=== PATIENT | female | born 1950 | race Caucasian/White ===

== ENCOUNTER → 2018-04-18 14:07 | Outpatient (REF) | payer MEDICARE, OTHER, SELFPAY ==
[2018-04-18 19:19] LABS: HCT 41.9 % (36.0-46.0); HGB 14.7 g/dL (12.0-15.5); Mean Corp. HGB Concentration 35.1 g/dL (32.0-36.0); Mean Corpuscular Hemoglobin 30.9 pg (27.0-33.0); Platelet Count 164 x1000/uL (130-400); RBC 4.76 m/cumm (4.00-5.20); RBC Distribution Width 12.4 % (11.7-14.6); White Blood Cell Count 6.94 k/cumm (4.4-10.8)
[2018-04-18 19:49] LABS: ALT 32 U/L (12-78); AST 25 U/L (15-37); Albumin 3.8 g/dL (3.4-5.0); Alkaline Phosphatase 118 U/L (46-116); Anion Gap 9.9 mmol/L (3-11); BUN 11 mg/dL (7-18); Bilirubin, Total 0.7 mg/dL (0.2-1.0); CO2 26.1 mmol/L (21.0-32.0); CREATININE 0.87 mg/dL (0.55-1.02); Calcium 9.3 mg/dL (8.5-10.1); Chloride 101 mmol/L (98-107); Folate 16.2 ng/mL (8.6-20.0); Glucose 149 mg/dL (70-100); Potassium 4.6 mmol/L (3.5-5.1); Sodium 137 mmol/L (136-145); Total Protein 7.4 g/dL (6.4-8.2); Vitamin B12 > 1000 pg/mL (193-986)
== END ==
LOC: NCHCN 14:07
PROVIDERS: PCP Family Medicine; Visit Provider Family Medicine
DX: R53.83 Other fatigue (principal)
CPT/HCPCS: 80053; 85027; 82607; 82746

== ENCOUNTER 2018-04-21 01:43 | Outpatient (CLI) | payer MEDICARE, OTHER, SELFPAY ==
--- NOTE | 2018-04-21 15:08 | DI.REPORT_ITS ---
SYMPTOMS/DIAGNOSIS: SCREENING, Z12.31 MAMMOGRAMS: Mammograms were interpreted according to the usual protocol including computer analysis with CAD system, tomosynthesis and C view imaging. The breast tissue is primarily of fatty radiodensity. There is no evidence of a mass. There are no suspicious calcifications and there has been no significant interval change when compared with prior images. SUMMARY: No evidence of malignancy, category 1. Yearly screening mammography is recommended. Breast density category B. SA ASSESSMENT OF FINDINGS: Negative. Category 1. Patient will receive a letter notifying them of these results. BI-RADS category B. There are scattered areas of fibroglandular density.
== END 2018-04-21 01:44 ==
PROVIDERS: PCP Family Medicine; Visit Provider Family Medicine
DX: Z12.31 Encounter for screening mammogram for malignant neoplasm of breast (principal)
CPT/HCPCS: 77063; 77067

== ENCOUNTER 2018-07-18 13:44 | Outpatient (REF) | payer MEDICARE, OTHER, SELFPAY ==
[2018-07-18 18:57] LABS: Microalb ug/mg Crea 3.9 ug/mg Cr
== END 2018-07-18 14:04 ==
LOC: NCHCN 13:44
PROVIDERS: PCP Family Medicine; Visit Provider Family Medicine
DX: E11.9 Type 2 diabetes mellitus without complications (principal)
CPT/HCPCS: 82043; 82570

== ENCOUNTER 2018-07-29 09:31 | Emergency (ER) | payer MEDICARE, OTHER, SELFPAY ==
[2018-07-29] VITALS (24 sets, daily range): BP systolic 104–154; BP diastolic 26–90; PULSE 82–142; RESP 18; TEMP 36.9–37.2; O2SAT 91–97
--- NOTE | 2018-07-29 09:36 | NUR.NOTE ---
rn went to waiting room 0932 to get PT however PT was in the hospital bathroom and thus not available Nursing Note:
[2018-07-29] MEDS: Acetaminophen 325 MG TAB 650 MG PO (10:10)
--- NOTE | 2018-07-29 10:20 | DI.RAD_ITS ---
SYMPTOM/DIAGNOSIS: COUGH, PRODUCTIVE PA AND LATERAL CHEST: Comparison is made with 05/31/15. Heart size and pulmonary vasculature are within normal limits. The lungs appear clear and well expanded. No effusions or pneumothoraces are identified. Mild degenerative changes are present in the spine. IMPRESSION: No acute pulmonary process.
--- NOTE | 2018-07-29 12:07 | ED.GENADUL_ITS ---
Discharge Plan Disposition Patient Disposition: HOME Discharge Details Chief Complaint: RespSymp Clinical Impression: Bronchitis Primary Care Provider: Chiqui Jeff ED Provider: Rafael Blakely Home Meds and New Rx's Prescriptions: New doxycycline hyclate 100 mg tablet 100 mg PO BID Qty: 12 RF: 0 acetaminophen-codeine [Tylenol-Codeine #3] 300-30 mg tablet 1 tab PO Q6H PRN (Reason: cough) Qty: 5 RF: 0 Continue levothyroxine 25 MCG tablet 25 mcg PO DAILY AM RF: 0 omeprazole magnesium [Prilosec OTC] 20 MG tablet,delayed release (DR/EC) 20 mg PO PRN PRN (Reason: Heartburn) RF: 0 metformin 500 MG tablet extended release 24hr 2,000 mg PO DAILY RF: 0 insulin glargine [Lantus Solostar U-100 Insulin] 300 UNITS/3 ML insulin pen 75 unit SQ HS RF: 0 lysine HCl 500 MG tablet 500 mg PO PRN PRNRF: 0 enalapril maleate 5 MG tablet 2.5 mg PO DAILY RF: 0 Discharge Instructions Instructions: Acute Bronchitis (ED) Additional Instructions: Please take the antibiotic as prescribed. Drink plenty of fluid to stay hydrated. Please follow-up with your primary care physician. Return to the ER for any worsening or new concerning symptoms. Referrals: Chiqui Jeff MD [Primary Care Provider] - Medical Decision Making 68-year-old female with history of insulin dependent diabetes, presents with cough for the past 1 week and associated sore throat as well as fevers. Patient did receive flu vaccine earlier this year. is sick with respiratory illness that is responding to antibiotic. Concern for viral respiratory infection versus bacterial bronchitis or early pneumonia. Chest x-ray reviewed and interpreted by radiology: Negative. Patient was given Tylenol and initiated doxycycline treatment here in the emergency department. Patient is to continue on doxycycline for treatment of potential bacterial bronchitis versus early pneumonia. She is to follow-up with her primary care physician. I did call and speak with the patient's primary care physician, Dr. Jeff, who will be happy to see the patient in follow-up. Disposition decision was made weighing the risks and benefits of hospitalization versus outpatient treatment, the risk for further decompensation , and the patient's wishes. The patient was stable and requested discharge. Prior to discharge, my usual and customary return precautions were reviewed with the patient - this included follow-up instructions and reason to return to the emergency department if condition worsens, does not improve as expected, or other new concerns arise. HPI General Mode of arrival: ambulatory . Date/Time Provider Initiated Documentation: 07/29/18 09:39 . Limitations to Documentation: no limitations . Information obtained by: patient . HPI Narrative: 68-year-old female with history of insulin dependent diabetes presents with chief complaint of cough. Patient notes cough for the past 1 week. Cough is productive of yellow sputum. She has associated chest congestion as well as sore throat. She has had some low-grade fever. She also notes associated fatigue. Of note, her was sick with respiratory illness and was treated with antibiotic and is improving. Related Data Home Medications Medication Instructions Recorded Confirmed levothyroxine 25 mcg PO DAILY AM 10/31/12 07/29/18 insulin glargine [Lantus Solostar 75 unit SQ HS 11/03/12 07/29/18 U-100 Insulin] metformin 2,000 mg PO DAILY 11/03/12 07/29/18 omeprazole magnesium [Prilosec OTC] 20 mg PO PRN PRN 11/03/12 07/29/18 lysine HCl 500 mg PO PRN PRN 07/26/14 07/29/18 enalapril maleate 2.5 mg PO DAILY 10/18/14 07/29/18 acetaminophen-codeine 1 tab PO Q6H PRN #5 tab 07/29/18 [Tylenol-Codeine #3] doxycycline hyclate 100 mg PO BID #12 tab 07/29/18 Previous Rx's Medication Instructions Recorded acetaminophen-codeine 1 tab PO Q6H PRN #5 tab 07/29/18 [Tylenol-Codeine #3] doxycycline hyclate 100 mg PO BID #12 tab 07/29/18 Allergies Allergy/AdvReac Type Severity Reaction Status Date / Time sulfamethoxazole Allergy Intermediate Skin Rash Unverified 07/29/18 10:49 [From Bactrim] trimethoprim [From Bactrim] Allergy Intermediate Skin Rash Unverified 07/29/18 10:49 PLACIDO Inhibitors AdvReac Intermediate Epistaxis Unverified 07/29/18 10:49 aspirin AdvReac Intermediate Epistaxis Unverified 07/29/18 10:49 losartan [Losartan] AdvReac Mild Muscle Unverified 07/29/18 10:49 Cramps sulfites AdvReac Intermediate Headache Uncoded 07/29/18 10:49 General Stated Complaint: RespSymp NIKI: 5 Review of Systems Review of Systems All systems reviewed & are unremarkable except as noted in HPI and below Constitutional Reports fever(s) PFSH Insulin dependent diabetes mellitus (Chronic) Medical History Insulin dependent diabetes mellitus (Chronic) Social History Smoking/Tobacco Use Status: Never Social History Smoking/Tobacco Use Status: Never Exam Const General: cooperative and no acute distress HENMT Head: normocephalic and atraumatic Mouth: moist mucous membranes Eyes Conjunctivae: normal conjunctivae Sclera: normal sclerae EOM: EOM intact bilaterally Neck Neck: trachea midline and supple Resp Effort & Inspection: cough Auscultation: rhonchi (bilateral) and no wheezes Cardio Jugular venous pressure: no JVD Rate: regular rate and not tachycardic Rhythm: regular rhythm GI Palpation: soft, not firm, no guarding, no masses, not rigid and nontender Skin General skin exam: no rashes or lesions noted Neuro General: alert, awake, oriented x3 and tone normal Extrem General: no edema Psych Appearance: grossly normal Mental Status: mental status grossly normal Speech and Movement: speech and movement normal Course Vital Signs Temperature 37.2 C 07/29/18 09:43 Pulse 105 H 07/29/18 09:43 Respiratory Rate 18 07/29/18 09:43 Blood Pressure 141/71 H 07/29/18 09:43 Pulse Oximetry 96 07/29/18 09:43 Temperature 37.2 C 07/29/18 09:43 Pulse 105 H 07/29/18 09:43 Respiratory Rate 18 07/29/18 09:43 Respiratory Effort 07/29/18 09:47 Respiratory Depth Normal 07/29/18 09:47 Respiratory Pattern Normal 07/29/18 09:47 Blood Pressure 141/71 H 07/29/18 09:43 Blood Pressure Position Sitting 07/29/18 09:43 Pulse Oximetry 96 07/29/18 09:43 Oxygen Delivery Method Room Air 07/29/18 09:43 Oxygen Flow Rate 0 07/29/18 09:43
== END 2018-07-29 12:03 | disposition home or self-care (01) ==
PROVIDERS: Emergency Provider Student in an Organized Health Care Education/Training Program; PCP Family Medicine
DX: J20.9 Acute bronchitis, unspecified (principal); E11.9 Type 2 diabetes mellitus without complications; Z79.4 Long term (current) use of insulin; I10 Essential (primary) hypertension
CPT/HCPCS: 36416; 82947; 82962; 99283; 71046

== ENCOUNTER 2018-11-16 12:12 | Outpatient (CLI) | payer MEDICARE, OTHER, SELFPAY ==
[2018-11-16 13:15] LABS: Hemoglobin A1C 6.9 % (4.5-6.2)
[2018-11-16 14:01] LABS: TSH (W/Ref FT4) 2.93 uIU/mL (0.358-3.74)
== END 2018-11-16 12:32 ==
PROVIDERS: PCP Family Medicine; Visit Provider Family Medicine
DX: E11.9 Type 2 diabetes mellitus without complications (principal); E03.9 Hypothyroidism, unspecified
CPT/HCPCS: 36415; 83036; 84443

== ENCOUNTER 2018-11-18 12:27 | Outpatient (REF) | payer MEDICARE, OTHER, SELFPAY ==
[2018-11-18 14:05] LABS: COMMENT (LAB VIEW ONLY) 64.85 mg/dL
== END 2018-11-18 12:47 ==
LOC: NCHCN 12:27
PROVIDERS: PCP Family Medicine; Visit Provider Family Medicine
DX: E11.9 Type 2 diabetes mellitus without complications (principal)
CPT/HCPCS: 82043; 82570

== ENCOUNTER 2018-11-23 03:54 | Outpatient (CLI) | payer MEDICARE, OTHER, SELFPAY ==
--- NOTE | 2018-11-23 11:40 | DI.MRI_ITS ---
SYMPTOMS/DIAGNOSIS: HEADACHES, R51, LONGSTANDING MIGRAINE/TENSION HEADACHES, DIFFERENT CONSTANT HEADACHE FOR 3 MONTHS WITH SOME PARESTHESIAS RT SIDE OF FACE, FAMILY HX ANEURYSM COUSIN BRAIN MRI: Sagittal T 2 and axial T 2 and diffusion weight axial and T 2 axial hemo and T 1 axial and T 2 axial, FLAIR, blade pulse sequences were performed. Note is made of small regions of increased signal in the frontoparietal white matter most numerous on the left side. The findings consistent with small vessel disease. There is no evidence of a mass or hemorrhage. The ventricles are intact. There is no evidence of a region of restricted diffusion. The normal flow void is demonstrated in the cerebral vessels. An artifact is identified projected over the right maxillary antrum secondary to the patient's dentition. SUMMARY: Findings consistent with small vessel disease. There is no evidence of a hemorrhage, infarct or mass.
== END 2018-11-23 04:14 ==
PROVIDERS: PCP Family Medicine; Visit Provider Family Medicine
DX: R51 Headache (principal); R20.2 Paresthesia of skin; Z82.49 Family history of ischemic heart disease and other diseases of the circulatory system
CPT/HCPCS: 70551

== ENCOUNTER 2019-03-08 16:00 | Outpatient (REF) | payer MEDICARE, OTHER, SELFPAY ==
[2019-03-08 20:17] LABS: HCT 38.9 % (36.0-46.0); HGB 13.6 g/dL (12.0-15.5); Mean Corpuscular Volume 88.6 fL (80-95); Mean Platelet Volume 10.8 fL (8.0-11.0); Platelet Count 160 x1000/uL (130-400); RBC 4.39 m/cumm (4.00-5.20); RBC Distribution Width 12.5 % (11.7-14.6); White Blood Cell Count 6.18 k/cumm (4.4-10.8)
[2019-03-08 20:27] LABS: BUN 9 mg/dL (7-18); CREATININE 0.75 mg/dL (0.55-1.02); Calcium 8.7 mg/dL (8.5-10.1); Chloride 103 mmol/L (98-107); Glucose 181 mg/dL (70-100); Potassium 4.5 mmol/L (3.5-5.1); Sodium 140 mmol/L (136-145)
[2019-03-08 20:35] LABS: Hemoglobin A1C 7.3 % (4.5-6.2)
[2019-03-10 11:03] LABS: IgA 176 mg/dL (85-499); Interpretation SEE COMMENTS; Tissue Transglutaminase IgA <1.2 U/mL (<4.0)
== END 2019-03-08 16:20 ==
LOC: NCHCN 16:00
PROVIDERS: PCP Family Medicine; Visit Provider Family Medicine
DX: E11.9 Type 2 diabetes mellitus without complications (principal); I10 Essential (primary) hypertension; K52.9 Noninfective gastroenteritis and colitis, unspecified
CPT/HCPCS: 80048; 82784; 83516; 85027; 83036

== ENCOUNTER 2019-03-28 00:24 | Outpatient (CLI) | payer MEDICARE, OTHER, SELFPAY ==
--- NOTE | 2019-03-28 15:00 | DI.RAD_ITS ---
SYMPTOMS/DIAGNOSIS: OSTEOPENIA, M85.88 DEXA SCAN WITH CHRISTI: Comparison is made with exams from 2003 through 2016. The CHRISTI image shows no evidence of compression fractures. The bone mineral density measurements of the lumbar spine correspond to a total T score of -1.2, in the osteopenic range. This has not significantly changed over time. The bone mineral density measurements of the left hip correspond to a total T score of -1.6 and a femoral neck T score of -2.3, in the osteopenic range. This is not significantly changed 2016, but represents a 10.2% decrease in overall bone density when compared with 2002. The left forearm bone mineral density measurements correspond to a total T score of -3.9 and a T score of the distal third of -3.2, in the osteoporotic range. This represents a 7.1% decrease when compared with the most recent exam of 2016 and a 14.1% decrease when compared with 2009. IMPRESSION: Osteoporosis of the left forearm with decrease when compared with the previous exams. Osteopenia of the left hip and lumbar spine.
== END 2019-03-28 00:44 ==
PROVIDERS: PCP Family Medicine; Visit Provider Family Medicine
DX: M81.0 Age-related osteoporosis without current pathological fracture (principal); M85.88 Other specified disorders of bone density and structure, other site
CPT/HCPCS: 77080

== ENCOUNTER 2019-09-27 12:06 | Outpatient (REF) | payer MEDICARE, OTHER, SELFPAY ==
[2019-09-27 19:42] LABS: C-Reactive Protein 0.13 mg/dL (0.0-0.3)
[2019-09-27 20:16] LABS: ESR 8 mm/hr (0-30)
== END 2019-09-27 12:26 ==
LOC: NCHCN 12:06
PROVIDERS: PCP Family Medicine; Visit Provider Family Medicine
DX: R07.9 Chest pain, unspecified (principal); R00.2 Palpitations
CPT/HCPCS: 85652; 86140

== ENCOUNTER 2019-09-28 10:24 | Outpatient (CLI) | payer MEDICARE, OTHER, SELFPAY ==
--- NOTE | 2019-09-28 12:57 | DI.CT_ITS ---
EXAM: CT HEAD SINUS WO CLINICAL HISTORY: HEADACHE, RECURRENT SINUSITIS, J32.9, ? STRUCTURES ABNORMALITIES TECHNIQUE: COMPARISON: HEAD WITHOUT CONTRAST from 07/30/2012 FINDINGS: Noncontrast cranial CT was performed. There is mild generalized cerebral atrophy. There is no evide nce of acute intracranial hemorrhage, mass effect, or midline shift. The orbital and temporal bone s tructures appear intact. Mastoid air cells are clear as visualized. Sinus CT was performed with multi slice acquisition, noncontrast. The paranasal sinuses are clear th roughout. Nasal cavity is unremarkable. The ostiomeatal complexes of the maxillary antra appear int act bilaterally. IMPRESSION: Negative noncontrast cranial CT. Negative sinus CT.
== END 2019-09-28 10:44 ==
PROVIDERS: PCP Family Medicine; Visit Provider Nurse Practitioner Family
DX: R51 Headache (principal); J32.9 Chronic sinusitis, unspecified; G31.89 Other specified degenerative diseases of nervous system
CPT/HCPCS: 70450; 70486

== ENCOUNTER 2019-10-02 02:58 | Outpatient (CLI) | payer MEDICARE, OTHER, SELFPAY | END 2019-10-02 03:18 | PROVIDERS: PCP Family Medicine; Visit Provider Family Medicine | DX: R00.2 Palpitations (principal); I49.1 Atrial premature depolarization; I49.3 Ventricular premature depolarization | CPT/HCPCS: 93225 ==

== ENCOUNTER 2019-10-05 07:13 | Outpatient (CLI) | payer MEDICARE, OTHER, SELFPAY ==
--- NOTE | 2019-10-09 08:44 | W.HOLTRPT ---
Date of service: 10/06/19 Time of Service: 08:44 Holter Monitor Report Holter Monitor Note: The patient was monitored for a period of 48 hours and 50 minutes. Rhythm throughout with sinus. Average heart rate was 86 bpm. Minimum heart rate was 65, maximum 129 There were no significant ventricular dysrhythmias There were rare atrial premature beats. There were several atrial pairs. There was 1 6 beat run of premature atrial contractions There were no pauses or bradycardia dysrhythmias
== END 2019-10-05 07:33 ==
PROVIDERS: PCP Family Medicine; Visit Provider Family Medicine
DX: R00.2 Palpitations (principal); I49.1 Atrial premature depolarization; I49.3 Ventricular premature depolarization
CPT/HCPCS: 93226

== ENCOUNTER 2019-10-09 01:19 | Outpatient (CLI) | payer MEDICARE, OTHER, SELFPAY ==
--- NOTE | 2019-10-09 11:45 | DI.NM_ITS ---
APPROVED REPORT Exam: Exercise Treadmill Patient Location: Out-Patient Room/Bed: Stress Nurse: Nella Carolina RN BMI: 27.28 Baseline Rhythm: Sinus Rhythm Indications: Chest pain. Palpitations. Medical History Medical History: Diabetes, HTN Cardiac Medications: Omeprazole. Metformin. Levothyroxine. Glargine insulin. Enalapril maleate. Doxyc ycline hydrate., Allergies: sulfamethoxazole. trimethoprim. chen inhibitors. aspirin. losartan. sulfites. Cardiac Risk Factors: HTN, DM, former smoker Pretest Chest Pain Characteristics: Non-exertional Chest pain Exercise History: Physically active Lung Sounds: Clear to auscultation Heart Sounds: Regular Stress Test Details Test: Exercise stress testing was performed using a Leonard protocol. Nuclear Acquisition: Rest Tc-99m/Stress Tc-99m 1 day Rest Isotope: Tc-99m Sestamibi. Dose: 11.5 Date: 10/09/2019 Injection Time: 1200 Stress Isotope: Tc-99m Sestamibi. Dose: 37.0 Date: 10/09/2019 Injection Time: 1350 HR Resting HR Supine: 70 bpm Max Heart Rate (APMHR): 151 bpm Resting HR Standin bpm Target HR (85% APMHR): 128 bpm Max HR Achieved: 132 bpm % of APMHR: 87 Recovery HR: 75 bpm HR response to stress: Normal HR response to stress BP Resting BP Supine: 146/80 mmHg Resting BP Standin/82 mmHg Max BP: 180/80 mmHg Recovery BP: 154/82 mmHg BP response to stress: Normal blood pressure response to stress. ECG Resting ECG: Sinus Rhythm Stress ECG: Sinus Tachycardia ST Change: Ischemic Lead(s): anterolateral leads, anterolateral leads Stage: I Comment: Pt was maintained at stage 1 of exercise due to physical limitations of legs. Recovery ECG: Sinus Rhythm Recovery ST Change: No significant ST segment changes Lead(s): I, II, III, aVR, aVL Clinical Reason for Termination: Fatigue Stress Symptoms: Chest pain Exercise duration: 5 min30 sec Highest Stage Reached: Stage 1: 1.7 mph at 10% grade. Exercise capacity: 5.23 METs Stress ECG Conclusion 1. Limited exercise tolerance (5.23 METS ). The patient achieved 87% of predicted heart rate for age . Electrocardiographically the test was consistent with myocardial ischemia with [address] depressi on noted at peak exercise leads V3 to V6. There were no clinical symptoms to suggest angina Protocol Used: Leonard Protocol Stress Test Summary STAGE Time (mins) Speed (mph) Grade (%) HR BP SYMPTOMS METS Supine 70 146/80 Standing 77 140/82 1 3 1.7 10 115 140/82 4.6 2 6 2.5 12 130 180/80 4.6 1 min recovery 117 180/62 3 min recovery 78 160/82 6 min recovery 75 154/82 MPI Conclusion No evidence of myocardial ischemia or infarction. Ejection fraction 74%
== END 2019-10-09 01:39 ==
PROVIDERS: PCP Family Medicine; Visit Provider Family Medicine
DX: R00.2 Palpitations (principal); I49.1 Atrial premature depolarization; I49.3 Ventricular premature depolarization; R07.9 Chest pain, unspecified; I25.9 Chronic ischemic heart disease, unspecified; I10 Essential (primary) hypertension; E11.9 Type 2 diabetes mellitus without complications; Z79.4 Long term (current) use of insulin
CPT/HCPCS: 78452; 93016; 93018; 93227; 93017

== ENCOUNTER 2019-12-14 19:14 | Outpatient (REF) | payer MEDICARE, OTHER, SELFPAY ==
[2019-12-14 16:59] LABS: C-Reactive Protein 0.19 mg/dL (0.0-0.3)
[2019-12-14 17:49] LABS: ESR 13 mm/hr (0-30)
== END 2019-12-14 19:34 ==
LOC: NCHCN 19:14
PROVIDERS: PCP Family Medicine; Visit Provider Family Medicine
DX: G43.909 Migraine, unspecified, not intractable, without status migrainosus (principal)
CPT/HCPCS: 85652; 86140

== ENCOUNTER 2020-01-29 15:45 | Outpatient (REF) | payer MEDICARE, OTHER, SELFPAY ==
[2020-01-29 18:57] LABS: COMMENT (LAB VIEW ONLY) 62.74 mg/dL; Microalb ug/mg Crea 7.7 ug/mg Cr
[2020-01-29 19:11] LABS: Anion Gap 10.9 mmol/L (3-11); BUN 13 mg/dL (7-18); CO2 27.1 mmol/L (21.0-32.0); CREATININE 0.83 mg/dL (0.55-1.02); Calcium 9.4 mg/dL (8.5-10.1); Chloride 99 mmol/L (98-107); Glucose 202 mg/dL (74-106); Potassium 4.8 mmol/L (3.5-5.1); Sodium 137 mmol/L (136-145); TSH (W/Ref FT4) 2.15 uIU/mL (0.36-3.74)
== END 2020-01-29 16:05 ==
LOC: NCHCN 15:45
PROVIDERS: PCP Family Medicine; Visit Provider Family Medicine
DX: E03.9 Hypothyroidism, unspecified (principal); E11.9 Type 2 diabetes mellitus without complications
CPT/HCPCS: 80048; 82043; 82570; 84443

== ENCOUNTER 2020-03-18 15:45 | Outpatient (REF) | payer MEDICARE, OTHER, SELFPAY ==
[2020-03-21 12:59] LABS: SARS-CoV-2 RNA Undetected (Undetected); SARS-CoV-2 Specimen Source Nasopharynx
== END 2020-03-18 16:05 ==
LOC: NCHCN 15:45
PROVIDERS: PCP Family Medicine; Visit Provider Family Medicine
DX: Z03.818 Encounter for observation for suspected exposure to other biological agents ruled out (principal)
CPT/HCPCS: U0003

== ENCOUNTER → 2020-03-28 12:41 | Outpatient (BNVA) | payer MEDICARE, OTHER, SELFPAY | PROVIDERS: PCP Family Medicine; Referring Provider Family Medicine; Visit Provider Internal Medicine Cardiovascular Disease | DX: R00.2 Palpitations (principal); R07.89 Other chest pain; E10.9 Type 1 diabetes mellitus without complications | CPT/HCPCS: 99214 ==

== ENCOUNTER 2020-04-02 04:49 | Outpatient (CLI) | payer MEDICARE, OTHER, SELFPAY ==
--- NOTE | 2020-04-26 10:52 | ZIOP_ITS ---
Date of service: 04/26/20 Time of Service: 10:52 ZIO Patch Supervisor Water Softener Service Referring Provider:: Eric Weinberg Indications:: Palpitations Note: This is a 14-day monitor reportedly ordered for symptoms of palpitations Predominant rhythm was sinus. Average heart rate was 86, minimum 59 and maximum 157 There were rare isolated PVCs, no couplets, no ventricular tachycardia There were rare atrial premature beats. There were 9 atrial runs ranging in length from 4 beats to 13 beats. These did not correspond to symptoms. There was no atrial fibrillation Patient symptoms corresponded to sinus rhythm ranging from 88 to 111 bpm
== END 2020-04-02 05:09 ==
PROVIDERS: PCP Family Medicine; Visit Provider Internal Medicine Cardiovascular Disease
DX: R00.2 Palpitations (principal); I49.3 Ventricular premature depolarization
CPT/HCPCS: 0296T

== ENCOUNTER 2020-04-26 10:52 | Outpatient (CLI) | payer MEDICARE, OTHER, SELFPAY | END 2020-04-26 11:12 | PROVIDERS: PCP Family Medicine; Referring Provider Internal Medicine Cardiovascular Disease; Visit Provider Internal Medicine Cardiovascular Disease | DX: R00.2 Palpitations (principal); I49.3 Ventricular premature depolarization | CPT/HCPCS: 0298T ==

== ENCOUNTER → 2020-05-09 13:44 | Outpatient (BNVA) | payer MEDICARE, OTHER, SELFPAY | PROVIDERS: PCP Family Medicine; Referring Provider Family Medicine; Visit Provider Internal Medicine Cardiovascular Disease | DX: R00.2 Palpitations (principal); R07.89 Other chest pain | CPT/HCPCS: 99442; 99213 ==

== ENCOUNTER 2020-07-22 01:19 | Outpatient (CLI) | payer MEDICARE, OTHER, SELFPAY ==
--- NOTE | 2020-07-22 | DI.MAMMO_ITS ---
EXAM: MAMMO SCREENING CLINICAL HISTORY: SCREENING, Z12.31 TECHNIQUE: Mammograms were interpreted according to the usual protocol including computer analysis w D[employer] Grid CAD system, tomosynthesis and C-view imaging. COMPARISON: FINDINGS: The breasts are of moderate density with fairly symmetrical distribution of fibroglandular tissue. N o dominant mass or clumped microcalcification is identified in either breast. The current examinatio n is compared with previous examinations including March 2018 and there has been no gross interval c hange in appearance in comparison with the prior studies. IMPRESSION: No specific evidence of malignancy at this time. Routine screening examinations are suggested at yea rly intervals in this age group according to the ACS ACR guidelines. BI-RADS Category 1 - Negative Breast Density - Category B - Scattered areas of fibroglandular density
== END 2020-07-22 01:39 ==
PROVIDERS: PCP Family Medicine; Visit Provider Family Medicine
DX: Z12.31 Encounter for screening mammogram for malignant neoplasm of breast (principal)
CPT/HCPCS: 77063; 77067

== ENCOUNTER 2020-09-16 15:04 | Outpatient (REF) | payer MEDICARE, OTHER, SELFPAY ==
[2020-09-16 18:44] LABS: TSH (W/Ref FT4) 3.04 uIU/mL (0.36-3.74)
== END 2020-09-16 15:24 ==
LOC: NCHCN 15:04
PROVIDERS: PCP Family Medicine; Visit Provider Family Medicine
DX: E03.9 Hypothyroidism, unspecified (principal)
CPT/HCPCS: 84439; 84443

== ENCOUNTER 2021-03-20 13:03 | Outpatient (REF) | payer MEDICARE, OTHER, SELFPAY ==
[2021-03-20 18:56] LABS: Bilirubin Negative (Negative); Blood Negative (Negative); Clarity Clear (Clear); Glucose Negative (Negative); Ketones Negative (Negative); Leukocyte Esterase Large (Negative); Nitrite Negative (Negative); Specific Gravity 1.015 (1.005-1.025); Urobilinogen 0.2 EU/dL (Up TO 0.2); pH 5.5 (5-8)
[2021-03-20 19:10] LABS: Bacteria Moderate HPF (Negative); C & S Indicated? Yes; Casts Negative LPF (Negative); Crystals Negative HPF (Negative); Epithelial Cells Few HPF (Negative); Mucus Negative (Negative); Other Cells Few Transitional (Negative); RBC 0-2 HPF (0-2); WBC 20-50 HPF (0-5)
[2021-03-20 19:18] LABS: COMMENT (LAB VIEW ONLY) 60.87 mg/dL; Microalb ug/mg Crea 8.5 ug/mg Cr
== END 2021-03-20 13:04 | disposition home or self-care (01) ==
LOC: NCHCN 13:03
PROVIDERS: PCP Family Medicine; Visit Provider Family Medicine
DX: E11.9 Type 2 diabetes mellitus without complications (principal)
CPT/HCPCS: 81003; 81015; 82043; 82570; 87086

== ENCOUNTER 2021-04-29 11:58 | Outpatient (REF) | payer MEDICARE, OTHER, SELFPAY ==
[2021-04-30 02:28] LABS: COVID-19 RT-PCR UVMMC Result Negative (Negative)
== END 2021-04-29 11:59 | disposition home or self-care (01) ==
LOC: LBN 11:58
PROVIDERS: PCP Family Medicine; Visit Provider Nurse Practitioner Family
DX: Z20.822 Contact with and (suspected) exposure to COVID-19 (principal); J06.9 Acute upper respiratory infection, unspecified
CPT/HCPCS: U0003; U0005

== ENCOUNTER 2021-05-22 02:29 | Outpatient (CLI) | payer MEDICARE, OTHER, SELFPAY ==
--- NOTE | 2021-05-22 13:50 | DI.US_ITS ---
APPROVED REPORT EXAM: Comprehensive 2D, Doppler, and color-flow Echocardiogram Patient Location: Out-Patient Process Designer: Natali Cee RDCS (AE) Indications: Palpitations, SIMEON Other Information Study Quality: Fair. Technically limited study due to body habitus. Conclusion Normal left ventricular wall thickness and chamber size. Estimated ejection fraction is 60 to 65%. There are no segmental wall motion abnormalities Normal right ventricular size and systolic function Both atria are normal in size Moderate mitral annular calcification. Trace mitral regurgitation Trileaflet aortic valve without stenosis or regurgitation Normal tricuspid valve with trace regurgitation Normal estimated right ventricular systolic pressure Wall motion Left Ventricle The left ventricle is normal size. The left ventricular systolic function is normal. The left ventric ular ejection fraction is within the normal range. There is normal left ventricular wall thickness. T here is normal LV segmental wall motion. There is no ventricular septal defect visualized. LVEF is 60 -65%. Right Ventricle The right ventricle is normal size. The right ventricular systolic function is normal. The RVSP is 23 .2mmHg. Atria The left atrium size is normal. The right atrium size is normal. The interatrial septum is intact wit h no evidence for an atrial septal defect. Aortic Valve The aortic valve is normal in structure. Aortic valve is trileaflet. There is no aortic valvular sten osis. No aortic regurgitation is present. Mitral Valve moderate mitral annular calcification. No evidence of mitral valve stenosis. Trace mitral regurgitati on. Tricuspid Valve The tricuspid valve is normal in structure. There is no tricuspid valve stenosis. Trace tricuspid reg urgitation. Pulmonic Valve Pulmonic valve is not well visualized. There is no pulmonic valvular stenosis. There is no pulmonic v alvular regurgitation. Great Vessels The aortic root is normal in size. Ascending aorta is not well visualized. IVC is normal in size and collapses >50% with inspiration. Pericardium There is no pericardial effusion. 2D Dimensions IVSD d PLAX 0.81 cm F: 0.6-1.0 LV Vol A2C d MOD 96.0 mL LVPW d PLAX 0.83 cm F: 0.6 - 1.0 LV Vol A4C d MOD 77.0 mL LVID d PLAX 4.02 cm F: 3.8 - 5.2 LA vol/ BSA A2C s A-L 19.6 mL/m2 LVDs 2.85 cm F: 2.2 - 3.5 LA vol/ BSA A4C s A-L 18.1 mL/m2 Ao Root d 2.85 cm F: 2.7 - 3.3 LA Vol/ BSA Biplane s A-L 19.6 mL/m2 RA Area A4C 6.44 cm2 LA Area A4C s MOD 12.22 cm2 RA Vol/ BSA A4C s A-L 6.2 mL/m2 LA Area A2C s MOD 13.22 cm2 LV EF Teichholz 55.9 % LV EF A4C MOD 57.5 % LVEF (Newman's) 55.90 % F: 54 - 74 LV EF A2C MOD 57.6 % LV Volume 67.90 mL F: 46 - 106 LV EF Biplane MOD 55.9 % LV Volume Index 39.24 mL/m2 F: 29 - 61 SV 48.11 mL LV Vol Biplane MOD 86.1 mL SV Index 27.79 mL/m2 FS 28.75 % M-Mode TAPSE 1.90 cm (M/F) >1.7 LV Diastology MV E' medial 0.060 (>0.07 m/s) E/A Ratio 0.7 LV E/e MED 12.10 (<14) MV E Vmax 0.73 (0.4-1.3 m/s) MV E' lateral 0.091 (>0.1 m/s) MV A Vmax 1.10 (0.4-1.3 m/s) LV E/e LAT 8.00 (<14) MV E/A Ratio 0.64 MV E/E' medial 12.14 MV E/E' lateral 8.02 Aortic Valve LVOT Area 2.96 cm2 AoV Area Vmax 2.41 cm2 LVOT Vmax 1.12 m/s AoV Area/ BSA (Vmax) 1.39 cm2/m2 LVOT Mean Omar. 0.76 m/s GRACIELA Mean Omar. 2.06 cm2 LVOT Peak Grad 5.0 mmHg GRACIELA Mean Omar. Index 1.19 cm2/m2 LVOT Mean Grad 2.6 mmHg LVOT VTI 0.234 m LVOT Diam s 1.90 cm AoV Vmax 1.38 m/s Velocity Ratio 0.81 AoV Mean Omar. 1.10 m/s AoV Peak Grad 7.6 mmHg LVOT SV 69.29 mL AoV Mean Grad 5.1 mmHg AoV VTI 0.282 m AoV Area VTI 2.46 cm2 AoV Area/ BSA (VTI) 1.42 cm/m2 Mitral Valve MV DT 414 (160-240 msec) MV PHT 120 msec MV Area PHT 1.83 cm2 MV VTI 0.263 m MV Area VTI 2.64 (4.0-6.0 cm2) Pulmonary Valve PV Vmax 1.02 (0.5-1.5 m/s) RVOT Peak Gr. 4.12 mmHg PV Peak Grad 4.2 mmHg RVOT Mean Gr. 2.15 mmHg PV Mean Grad 2.2 mmHg RVOT VTI 0.166 m PV VTI 0.181 m RVOT Vmax 1.02 m/s Tricuspid Valve TR Peak Grad 20.2 mmHg TR Vmax 2.25 m/s RA Pressure 3.00 mmHg RVSP (TR) 23.2 mmHg
== END 2021-05-22 02:49 ==
PROVIDERS: PCP Family Medicine; Visit Provider Family Medicine
DX: R06.09 Other forms of dyspnea (principal); R00.2 Palpitations; R93.9 Diagnostic imaging inconclusive due to excess body fat of patient
CPT/HCPCS: 93306

== ENCOUNTER 2022-01-08 17:42 | Outpatient (REF) | payer MEDICARE, OTHER, SELFPAY ==
[2022-01-08 16:33] LABS: HCT 40.4 % (36.0-46.0); HGB 14.1 g/dL (11.2-15.7); MCH 30.7 pg (27.0-33.0); MCHC 34.9 % (32.0-36.0); MCV 88 fL (80-95); MPV 10.4 fL (8.0-11.0); Platelet Count 166 10^3/uL (130-400); RDW 12.3 % (11.7-14.6); RDW-SD 39.8 fL; WBC 6.14 10^3/uL (4.4-10.8)
[2022-01-08 16:48] LABS: Hemoglobin A1C 7.8 % (<5.7)
[2022-01-08 16:49] LABS: Anion Gap 11.8 mmol/L (3-11); BUN 9 mg/dL (7-18); CO2 25.2 mmol/L (21.0-32.0); CREATININE 0.8 mg/dL (0.55-1.02); Calcium 8.5 mg/dL (8.5-10.1); Calculated LDL 74 mg/dL (<100); Chloride 103 mmol/L (98-107); Cholesterol 156 mg/dL (<200); Glucose 303 mg/dL (74-106); HDL Cholesterol 50 mg/dL (40-60); Potassium 4.4 mmol/L (3.5-5.1); Sodium 140 mmol/L (136-145); TSH (W/Ref FT4) 1.94 uIU/mL (0.36-3.74); Triglyceride 162 mg/dL (<150)
== END 2022-01-08 17:43 | disposition home or self-care (01) ==
LOC: NCHCN 17:42
PROVIDERS: PCP Family Medicine; Visit Provider Family Medicine
DX: E11.9 Type 2 diabetes mellitus without complications (principal); I10 Essential (primary) hypertension; E03.9 Hypothyroidism, unspecified
CPT/HCPCS: 80048; 80061; 85027; 83036; 84443

== ENCOUNTER 2022-01-16 15:47 | Outpatient (REF) | payer MEDICARE, OTHER, SELFPAY ==
[2022-01-16 19:26] LABS: COMMENT (LAB VIEW ONLY) 50.39 mg/dL; Microalb ug/mg Crea 9.7 ug/mg Cr
== END 2022-01-16 15:48 | disposition home or self-care (01) ==
LOC: NCHCN 15:47
PROVIDERS: PCP Family Medicine; Visit Provider Family Medicine
DX: E11.9 Type 2 diabetes mellitus without complications (principal)
CPT/HCPCS: 82043; 82570

== ENCOUNTER 2022-02-09 07:23 | Day surgery (SDC) | payer MEDICARE, OTHER, SELFPAY ==
--- NOTE | 2022-02-09 06:20 | W.ANESPRE ---
General Info Date of Service Date Performed: 02/09/22 Height: 5 ft 4 in Weight: 68.039 kg Body Mass Index (BMI): 25.7 Surgical Procedure: Operation Date: 02/09/22 09:40 Proposed Procedure Side Surgeon p Cataract Extraction with IOL Implant Left Adithya Mcclain MD Meds Allergies and Home Medications Allergies Allergy/AdvReac Type Severity Reaction Status Date / Time sulfamethoxazole Allergy Intermediate Skin Rash Verified 02/09/22 07:56 [From Bactrim] trimethoprim [From Bactrim] Allergy Intermediate Skin Rash Verified 02/09/22 07:56 PLACIDO Inhibitors AdvReac Intermediate Epistaxis Verified 02/09/22 07:56 aspirin AdvReac Intermediate Epistaxis Verified 02/09/22 07:56 losartan [Losartan] AdvReac Mild Muscle Verified 02/09/22 07:56 Cramps sulfite AdvReac Headache Verified 02/09/22 07:56 Home Medication Medication Instructions Recorded metformin 500 mg tablet,extended 2,000 mg PO DAILY 11/03/12 release 24hr lysine HCl 500 mg tablet 500 mg PO PRN PRN 07/26/14 fluconazole 150 mg tablet 150 mg PO QWEEK PRN 12/27/19 insulin detemir U-100 100 unit/mL 75 unit subcut HS 12/27/19 subcutaneous solution (Levemir U-100 Insulin) nystatin 100,000 unit/gram topical 1 applic topical BID 12/27/19 cream omeprazole magnesium 20 mg 20 mg PO HS 12/27/19 tablet,delayed release (Prilosec OTC) erenumab-aooe 140 mg/mL 140 mg subcut QMONTH 05/09/20 subcutaneous auto-injector (Aimovig Autoinjector) Current Visit Medications: Current Medications Generic Name Dose Route Start Last Admin Trade Name Freq PRN Reason Stop Dose Admin Acetaminophen 1,000 mg 02/09/22 06:00 Acetaminophen 500 Mg Tab PO Q4H PRN PRN Miscellaneous Medication 0 ml 02/09/22 06:00 Prednisolone 1%, Moxifloxacin 0.5%, Nepafenac 0.1% 5ml Btl OS DIRECTED [facility] Miscellaneous Medication 0 ml 02/09/22 06:00 Tropicam./Phenyleph. (1/2.5%) 5 Ml Btl OS DIRECTED CARLENE Tetracaine HCl 0 ml 02/09/22 06:00 Tetracaine 0.5% 4 Ml Btl OS DIRECTED [facility] Active Problems Active Problems: Problem Status Onset Code Facial pain R51 Palpitations R00.2 Medical History Medical History (Updated 02/06/22 @ 11:20 by Sedrick Medrano) Benign essential hypertension Chest pain Pt. states this was a few years ago before she lost weight and no longer has chest pain. Chronic tension headache Diabetes mellitus Diabetes mellitus type 1 Pt. states this is incorrect, it is type II Fibromyalgia GERD (gastroesophageal reflux disease) Hypothyroidism pt. states her thyroid levels came back normal Insulin dependent diabetes mellitus Migraine headache Osteopenia Palpitations PUD (peptic ulcer disease) Recurrent sinusitis Recurrent vaginitis Rheumatoid factor positive Solitary pulmonary nodule Surgical History Surgical History (Updated 02/09/22 @ 07:59 by Daysi Brunner) H/O: hysterectomy Hx of appendectomy Hx of arthroscopic knee surgery S/P cholecystectomy Tobacco Smoking/Tobacco Use Status: Never Alcohol Alcohol Intake: never Substance Use Substance use: Never Substance use type: does not use Prental History History 3 Para 3 Hx # Term Pregnancies Multiple births Hx # Pregnancies Ectopic pregnancies AB induced Hx Number of Living Children AB spontaneous Vital Signs and Lab Results Vital Signs Most Recent Vital Signs in EMR: Temp Pulse Resp BP Pulse Ox 36.4 C L 101 H 20 174/90 H 97 02/09/22 07:50 02/09/22 07:50 02/09/22 07:50 02/09/22 07:50 02/09/22 07:50 Lab Results Blood Type / Crossmatch: No Data to Display Complete Blood Count: No Data to Display Complete Metabolic Panel: No Data to Display Liver Function Panel: No Data to Display Coagulation Panel: No Data to Display Cardiac Panel: No Data to Display Arterial Blood Gas: No Data to Display Venous Blood Gas: No Data to Display Pancreas Panel: No Data to Display Thyroid Panel: No Data to Display Infectious Disease: No Data to Display Blood Cultures: No Data to Display Toxicology Panel: No Data to Display Imaging and Studies Imaging and Studies Study information below may be from another EMR and interpreted by another provider. Please see original notes in EMR for more complete details. Stress Test Summary: 2020: 5.23 METS. no evidence of ischemia or infarct. EF 74%. Echocardiogram Summary: 04/2021: LVEF 60-65%, trace MR, trace TR. Anesthesia Assessment and Plan Anesthesia History Personal History: No History of Anesthesia Complications Family History: No Family History of Anesthesia Complications Exercise Tolerance Exercise Tolerance: Metabolic Equivalents>4 Cardiac & Pulmonary Exam Cardiac Exam: Normal S1/S2 Heart Sounds Pulmonary Exam: Clear Bilateral Breath Sounds Implantable Cardiac Device Does patient have a Pacemaker or an ICD?: No Airway Exam Known Difficult Airway: No Mallampati Class: 3 Mouth Opening: Normal (> 3cm) Thyromental Distance: Greater than 3 cm Neck Range of Motion: Full ROM Neck Circumference: Normal Teeth Condition: Normal Dentition ASA Classification ASA Score: ASA 3 Emergency Case?: No NPO Status NPO Status: NPO Clears >2 hours, Solids >8 hours Anesthesia Plan Resuscitation Status: Full Code Anesthesia Technique: MAC Anesthesia Airway Planned: Natural Airway Monitors Used: Standard Monitors Preoperative Comments:: 71 yo female for cataract removal. Sig PMHx: DMII (last A1c 7.8%), GERD, hypothyroid, palpitations (unremarkable zio patch), fibromyalgia. Would like MKO.
[2022-02-09 07:50] VITALS: BP 174/90; PULSE 101; RESP 20; TEMP 36.4; O2SAT 97
[2022-02-09] MEDS: Tropicam./Phenyleph. (1/2.5%) 5 ML BTL OS ×3 (08:06→08:18)
[2022-02-09 08:10] VITALS: BMI 25.7
[2022-02-09] MEDS: Tetracaine 0.5% 4 ML BTL OS (09:20)
[2022-02-09] MEDS: Balanced Salt Soln.-PLUS 500 ML BAG (09:21)
[2022-02-09] MEDS: Duovisc Viscoelastic System EACH 1 EACH (09:21)
[2022-02-09] MEDS: Lidocaine 2% Jelly 6 ML SYR (09:22)
[2022-02-09] MEDS: Povidone-Iodine Ophth 30 ML BTL (09:25)
[2022-02-09 09:41] VITALS: BP 145/72; PULSE 89; RESP 16; TEMP 36.4; O2SAT 96
--- NOTE | 2022-02-09 09:42 | W.PM.DSUDISC ---
Discharge Plan Disposition Patient Disposition: HOME Condition: Good Discharge Details Attending Provider: Adithya Mcclain Primary Care Provider: Chiqui Jeff Home Meds and New Rx's Prescriptions: No Action Aimovig Autoinjector 140 mg/mL auto-injector 140 mg subcut QMONTH Levemir U-100 Insulin 100 unit/mL solution 75 unit SC HS omeprazole magnesium [Prilosec OTC] 20 mg tablet,delayed release (DR/EC) 20 mg PO HS Label Comments: Brand Name only fluconazole 150 mg tablet 150 mg PO QWEEK PRN nystatin 100,000 unit/gram cream 1 applic TP BID metformin 500 MG tablet extended release 24hr 2,000 mg PO DAILY lysine HCl 500 MG tablet 500 mg PO PRN PRN Label Comments: takes prn Discharge Instructions Stand Alone Forms: Post-op Topical Cataract, Press Ganey (DSU) Discharge Orders Discharge Orders: Discharge Order (Routine); Ordered 02/09/22 Ordered By: Adithya Mcclain DS: Diagnosis Discharge Diagnosis (1) Cortical cataract of left eye: Status: Resolved (2) Nuclear sclerotic cataract of left eye: Status: Resolved
--- NOTE | 2022-02-09 09:43 | W.PM.OP ---
Date of service: 02/09/22 Time of Service: 09:43 Operative Note Operative Note DATE OF PROCEDURE: 02/09/22 PRE-OP DIAGNOSIS: Nuclear/cortical/posterior subcapsular cataract, left eye POST-OP DIAGNOSIS: same PROCEDURE: Cataract extraction using phacoemulsification with intraocular lens implant, left eye SURGEON: Adithya Mcclain ANESTHESIA TYPE: Local By Surgeon and MAC Refer to Anesthesia Record PATHOLOGY: none sent COMPLICATIONS: None Patient was transported to: same day Patient's condition: stable Implants: Aly [employer] Aly / [employer] Tecnis [id number] Indications: Progressive decreased vision due to cataract, left eye Procedure Description: CATARACT SURGERY OPERATIVE REPORT PREOPERATIVE DIAGNOSIS: 1. Nuclear/cortical/posterior subcapsular cataract, left eye POSTOPERATIVE DIAGNOSIS: Same OPERATION: 1. Cataract extraction using phacoemulsification with posterior chamber intraocular lens implant, left eye. IOL: IOL Lithographer Apprentice/Model: Aly & Aly / RICHARD Tecnis [id number] IOL Power: + 15.5 diopters IOL Serial Number: [id number] Optic Diameter: 6.0 mm Haptic/Overall Diameter: 13.0 mm PHACO INFO: Edgar [employer]bridge Digitalurion Vision System with OZil and Active Fluidics Cumulative Dispersed Energy (CDE): 8.92 seconds SURGEON: Adithya Mcclain MD, NICOLLE ANESTHESIA: Monitored A [facility] (MAC), with local sub-tenon's anesthetic infiltration COMPLICATIONS: None SPECIMENS: None INDICATIONS FOR PROCEDURE: The patient is a 71-year-old lady with history of diminished visual acuity in her left eye secondary to the development of nuclear/cortical/posterior capsular cataract. The option of cataract surgery was offered to the patient and she felt she was symptomatic enough that she wished to proceed. PROCEDURE: The correct surgical eye was identified and marked as the left eye and the pupil was dilated in the preoperative area using mydriatics and cycloplegics. The dilated pupil size was 7.0 mm. Oral sedation was administered in the form of an Imprimis MKO Melt (midazolam 3mg/ketamine 25mg/ondansetron 2mg). The patient was brought to the operating room where cardiopulmonary monitoring was instituted and surgical time-out was performed, confirming the correct operative eye and IOL power. Topical anesthesia was administered and ophthalmic povidone-iodine 5% was instilled into the conjunctival fornices. Lidocaine gel was applied to the cornea and the yohan-ocular area was prepped with Betadine 10% solution and draped in the usual sterile fashion for intraocular surgery, including an aperture drape. A Tegaderm transparent film dressing was cut in half and used to cover the lashes and lid margins. Care was taken to sequester the lashes and lid margins under the Tegaderm dressing. A lid speculum was placed between the lids of the operative eye and the Edgar LuxOR Revalia operating microscope was maneuvered into position. Octavio scissors were then used to make a conjunctival buttonhole approximately 6mm posterior to the limbus in the inferonasal quadrant. Blunt dissection was carried out to expose bare sclera, and a blunt-tipped sub-tenon?s anesthesia cannula was introduced and passed posteriorly along the globe where non-preserved plain lidocaine was injected into posterior sub-Tenon?s space. A sideport knife was used to make a paracentesis port superiorly/superiortemporally. Intraocular phenylephrine/lidocaine was injected int the anterior chamber.. The anterior chamber was filled with viscoelastic. A 2.4mm keratome knife was used to construct a 2-plane near-clear corneal tunnel extending 2.0mm into clear cornea temporally. A flap was raised on the anterior capsule and capsulorhexis forceps were used to complete a continuous curvilinear capsulorhexis of 5.5 mm. Balanced salt solution was then used to perform cortical cleaving hydrodissection and nuclear hydrodelineation until the lens could be freely rotated within the capsular bag. The lens nucleus was then disassembled and removed within the capsular bag and iris plane using phacoemulsification. Residual cortical material was removed using the 45-degree angled silicone I/A tip with 0.3mm port. The posterior capsule was carefully polished to remove as much residual lens epithelial cells as safely possible. The capsular bag was then inflated and the anterior chamber deepened with viscoelastic. The lens implant described above was inserted into the capsular bag using the RICHARD [place] Injector. A Kuglen hook was used to dial the IOL into position. Residual viscoelastic was then removed first from posterior to the IOL, then from the anterior chamber using the I/A handpiece. The lens implant was noted to center nicely within the capsular bag. The incisions were stromally hydrated, and the anterior chamber was reformed using BSS. Then 0.5cc of moxifloxacin 1.0mg/ml were injected into the capsular bag and anterior chamber. The incisions were checked with a Weck spear and found to be secure. Several drops of ophthalmic povidone-iodine 5% were then applied to the eye followed by two drops of Imprimis combination prednisolone/moxifloxacin/nepafenac solution. The drapes were removed and a clear plastic protective eye shield was placed over the eye. The patient was then returned to Same Day Surgery in stable condition.
--- NOTE | 2022-02-09 09:57 | W.ANESPOSTOP ---
Postoperative Evaluation Date, Time and Location Date Performed: 02/09/22 Time Performed: 09:41 Patient Location: Day Surgery Unit Vital Signs Most Recent Imported Vital Signs: Most Recent Vital Signs Temp Pulse Resp BP Pulse Ox 36.4 C L 89 16 145/72 H 96 02/09/22 09:41 02/09/22 09:41 02/09/22 09:41 02/09/22 09:41 02/09/22 09:41 Pain Score Most Recent Pain Score: Most Recent Pain Score Pain Level 0 02/09/22 09:41 Assessment Mental Status: Awake (Alert & Oriented to Patient Baseline) Airway and Respiratory Function: Patent airway with normal (patient baseline) respiratory exam Cardiovascular Function: Hemodynamically Stable Hydration Status: Adequately Hydrated Nausea & Vomiting: No Nausea or Vomiting Pain: Pt. Denies Any Pain Peripheral Nerve Block: Patient did not receive a nerve block
[2022-02-09 10:12] VITALS: BP 147/81; PULSE 82; RESP 16; TEMP 36.6; O2SAT 97
[2022-02-09 10:31] VITALS: BP 140/67; PULSE 85; RESP 16; O2SAT 96
== END 2022-02-09 10:34 | disposition home or self-care (01) ==
PROVIDERS: PCP Family Medicine; Visit Provider Ophthalmology
PROC: (CPT 66984; principal; 2022-02-09 09:30)
DX: H25.12 Age-related nuclear cataract, left eye (principal); I10 Essential (primary) hypertension; E11.9 Type 2 diabetes mellitus without complications; Z79.4 Long term (current) use of insulin
CPT/HCPCS: 66984; V2632

== ENCOUNTER 2022-02-27 10:23 | Day surgery (SDC) | payer MEDICARE, OTHER, SELFPAY ==
[2022-02-27 10:25] VITALS: BP 146/74; PULSE 87; RESP 18; TEMP 36.6; O2SAT 95
[2022-02-27] MEDS: Tropicam./Phenyleph. (1/2.5%) 5 ML BTL OD ×3 (10:40→10:55)
--- NOTE | 2022-02-27 11:25 | ANES.PREOP_ITS ---
General Info Date of Service Date Performed: 02/27/22 Height: 5 ft 4 in Weight: 68 kg Body Mass Index (BMI): 25.7 Surgical Procedure: Operation Date: 02/27/22 13:40 Proposed Procedure Side Surgeon p Cataract Extraction with IOL Implant Right Adithya Mcclain MD Meds Allergies and Home Medications Allergies Allergy/AdvReac Type Severity Reaction Status Date / Time sulfamethoxazole Allergy Intermediate Skin Rash Verified 02/27/22 10:37 [From Bactrim] trimethoprim [From Bactrim] Allergy Intermediate Skin Rash Verified 02/27/22 10:37 PLACIDO Inhibitors AdvReac Intermediate Epistaxis Verified 02/27/22 10:37 aspirin AdvReac Intermediate Epistaxis Verified 02/27/22 10:37 losartan [Losartan] AdvReac Mild Muscle Verified 02/27/22 10:37 Cramps sulfite AdvReac Headache Verified 02/27/22 10:37 Home Medication Medication Instructions Recorded metformin 500 mg tablet,extended 2,000 mg PO DAILY 11/03/12 release 24hr lysine HCl 500 mg tablet 500 mg PO PRN PRN 07/26/14 fluconazole 150 mg tablet 150 mg PO QWEEK PRN 12/27/19 insulin detemir U-100 100 unit/mL 75 unit subcut HS 12/27/19 subcutaneous solution (Levemir U-100 Insulin) nystatin 100,000 unit/gram topical 1 applic topical BID 12/27/19 cream omeprazole magnesium 20 mg 20 mg PO HS 12/27/19 tablet,delayed release (Prilosec OTC) erenumab-aooe 140 mg/mL 140 mg subcut QMONTH 05/09/20 subcutaneous auto-injector (Aimovig Autoinjector) Current Visit Medications: Current Medications Generic Name Dose Route Start Last Admin Trade Name Freq PRN Reason Stop Dose Admin Acetaminophen 1,000 mg 02/27/22 06:00 Acetaminophen 500 Mg Tab PO Q4H PRN PRN Miscellaneous Medication 0 ml 02/27/22 06:00 Prednisolone 1%, Moxifloxacin 0.5%, Nepafenac 0.1% 5ml Btl OD DIRECTED [facility] Miscellaneous Medication 0 ml 02/27/22 06:00 02/27/22 10:55 Tropicam./Phenyleph. (1/2.5%) 5 Ml Btl OD 1 drp DIRECTED CARLENE Administration Tetracaine HCl 0 ml 02/27/22 06:00 Tetracaine 0.5% 4 Ml Btl OD DIRECTED CARLENE PFSH Active Problems Active Problems: Problem Status Onset Code Nuclear sclerotic cataract of left eye H25.12 Cortical cataract of left eye H26.9 Facial pain R51 Palpitations R00.2 Medical History Medical History Benign essential hypertension Chest pain Pt. states this was a few years ago before she lost weight and no longer has chest pain. Chronic tension headache Diabetes mellitus Diabetes mellitus type 1 Pt. states this is incorrect, it is type II Fibromyalgia GERD (gastroesophageal reflux disease) Hypothyroidism pt. states her thyroid levels came back normal Insulin dependent diabetes mellitus Migraine headache Osteopenia Palpitations PUD (peptic ulcer disease) Recurrent sinusitis Recurrent vaginitis Rheumatoid factor positive Solitary pulmonary nodule Surgical History Surgical History H/O: hysterectomy Hx of appendectomy Hx of arthroscopic knee surgery S/P cholecystectomy Tobacco Smoking/Tobacco Use Status: Never Alcohol Alcohol Intake: never Substance Use Substance use: Never Substance use type: does not use Prental History History 3 Para 3 Hx # Term Pregnancies Multiple births Hx # Pregnancies Ectopic pregnancies AB induced Hx Number of Living Children AB spontaneous Vital Signs and Lab Results Vital Signs Most Recent Vital Signs in EMR: Most Recent Vital Signs Temp Pulse Resp BP Pulse Ox 36.6 C 87 18 146/74 H 95 02/27/22 10:25 02/27/22 10:25 02/27/22 10:25 02/27/22 10:25 02/27/22 10:25 Lab Results Blood Type / Crossmatch: No Data to Display Complete Blood Count: No Data to Display Complete Metabolic Panel: No Data to Display Liver Function Panel: No Data to Display Coagulation Panel: No Data to Display Cardiac Panel: No Data to Display Arterial Blood Gas: No Data to Display Venous Blood Gas: No Data to Display Pancreas Panel: No Data to Display Thyroid Panel: No Data to Display Infectious Disease: No Data to Display Blood Cultures: No Data to Display Toxicology Panel: No Data to Display Imaging and Studies Imaging and Studies Study information below may be from another EMR and interpreted by another provider. Please see original notes in EMR for more complete details. Stress Test Summary: 2020: 5.23 METS. no evidence of ischemia or infarct. EF 74%. Echocardiogram Summary: 04/2021: LVEF 60-65%, trace MR, trace TR. Anesthesia Assessment and Plan Anesthesia History Personal History: No History of Anesthesia Complications Family History: No Family History of Anesthesia Complications Exercise Tolerance Exercise Tolerance: Metabolic Equivalents>4 Pertinent Negatives Pertinent Negatives: No Major Pulmonary Symptoms or Complaints Cardiac & Pulmonary Exam Cardiac Exam: Normal S1/S2 Heart Sounds Pulmonary Exam: Clear Bilateral Breath Sounds Implantable Cardiac Device Does patient have a Pacemaker or an ICD?: No Airway Exam Known Difficult Airway: No Mallampati Class: 3 Mouth Opening: Normal (> 3cm) Thyromental Distance: Greater than 3 cm Neck Range of Motion: Full ROM Neck Circumference: Normal Teeth Condition: Normal Dentition ASA Classification ASA Score: ASA 2 Emergency Case?: No NPO Status NPO Status: NPO Clears >2 hours, Solids >8 hours Anesthesia Plan Resuscitation Status: Full Code Anesthesia Technique: MAC Anesthesia Airway Planned: Natural Airway Monitors Used: Standard Monitors
[2022-02-27 11:27] VITALS: BMI 25.7
[2022-02-27] MEDS: Tetracaine 0.5% 4 ML BTL OD (12:26)
[2022-02-27] MEDS: Duovisc Viscoelastic System EACH 1 EACH (12:34)
[2022-02-27] MEDS: Balanced Salt Soln.-PLUS 500 ML BAG (12:34)
[2022-02-27] MEDS: Lidocaine 2% Jelly 6 ML SYR (12:35)
[2022-02-27] MEDS: Povidone-Iodine Ophth 30 ML BTL (12:36)
[2022-02-27 12:50] VITALS: BP 143/74; PULSE 84; RESP 18; TEMP 36.4; O2SAT 96
--- NOTE | 2022-02-27 12:50 | W.PM.DSUDISC ---
Discharge Plan Disposition Patient Disposition: HOME Condition: Good Discharge Details Attending Provider: Adithya Mcclain Primary Care Provider: Chiqui Jeff Home Meds and New Rx's Prescriptions: No Action Aimovig Autoinjector 140 mg/mL auto-injector 140 mg subcut QMONTH Levemir U-100 Insulin 100 unit/mL solution 75 unit SC HS omeprazole magnesium [Prilosec OTC] 20 mg tablet,delayed release (DR/EC) 20 mg PO HS Label Comments: Brand Name only fluconazole 150 mg tablet 150 mg PO QWEEK PRN nystatin 100,000 unit/gram cream 1 applic TP BID metformin 500 MG tablet extended release 24hr 2,000 mg PO DAILY lysine HCl 500 MG tablet 500 mg PO PRN PRN Label Comments: takes prn Discharge Instructions Stand Alone Forms: Post-op Topical Cataract, Press Ganey (DSU) Discharge Orders Discharge Orders: Discharge Order (Routine); Ordered 02/27/22 Ordered By: Adithya Mcclain DS: Diagnosis Discharge Diagnosis (1) Cortical cataract of right eye: Status: Resolved (2) Nuclear sclerotic cataract of right eye: Status: Resolved
--- NOTE | 2022-02-27 12:51 | ROE_ITS ---
Date of service: 02/27/22 Time of Service: 12:52 Operative Note Operative Note DATE OF PROCEDURE: 03/10/21 PRE-OP DIAGNOSIS: Nuclear/cortical cataract, right eye POST-OP DIAGNOSIS: same PROCEDURE: Cataract extraction using phacoemulsification with intraocular lens implant, right eye SURGEON: Adithya Mcclain ANESTHESIA TYPE: Local By Surgeon and MAC Refer to Anesthesia Record ESTIMATED BLOOD LOSS: 0 PATHOLOGY: none sent COMPLICATIONS: None Patient was transported to: same day Patient's condition: stable Implants: Aly & Aly/RICHARD Tecnis [id number] Indications: Progressive visual loss due to cataract, right eye Procedure Description: CATARACT SURGERY OPERATIVE REPORT PREOPERATIVE DIAGNOSIS: 1. Nuclear/cortical cataract, right eye POSTOPERATIVE DIAGNOSIS: Same OPERATION: 1. Cataract extraction using phacoemulsification with posterior chamber intraocular lens implant, right eye. IOL: IOL Sales Analytics Manager/Model: Aly & Aly / RICHARD Tecnis [id number] IOL Power: + 15.0 diopters IOL Serial Number: [id number] Optic Diameter: 6.0mm Haptic/Overall Diameter: 13.0mm PHACO INFO: Edgar Ener-G-Rotorsurion Vision System with OZil and Active Fluidics Cumulative Dispersed Energy (CDE): 6.0 seconds SURGEON: Adithya Mcclain MD, NICOLLE ANESTHESIA: Monitored Anesthesia Care (MAC), with local sub-tenon's anesthetic infiltration COMPLICATIONS: None SPECIMENS: None INDICATIONS FOR PROCEDURE: The patient is a 71-year-old lady with history of diminished visual acuity in both eyes secondary to development of bilateral nuclear and cortical cataract. The option of cataract surgery was offered to the patient and she wished to proceed. She has already undergone cataract surgery in the left eye and is doing well postoperatively. She now presents for cataract surgery in the right eye. PROCEDURE: The correct surgical eye was identified and marked as the right eye and the pupil was dilated in the preoperative area using mydriatics and cycloplegics. The dilated pupil size was 7.0 mm. Oral sedation was administered in the form of an Imprimis MKO Melt (midazolam 3mg/ketamine 25mg/ondansetron 2mg). The patient elected to proceed without oral sedation. The patient was brought to the operating room where cardiopulmonary monitoring was instituted and surgical time-out was performed, confirming the correct operative eye and IOL power. Topical anesthesia was administered and ophthalmic povidone-iodine 5% was instilled into the conjunctival fornices. Lidocaine gel was applied to the cornea and the yohan-ocular area was prepped with Betadine 10% solution and draped in the usual sterile fashion for intraocular surgery, including an aperture drape. A Tegaderm transparent film dressing was cut in half and used to cover the lashes and lid margins. Care was taken to sequester the lashes and lid margins under the Tegaderm dressing. A lid speculum was placed between the lids of the operative eye and the Edgar LuxOR Revalia operating microscope was maneuvered into position. Octavio scissors were then used to make a conjunctival buttonhole approximately 6mm posterior to the limbus in the inferonasal quadrant. Blunt dissection was carried out to expose bare sclera, and a blunt-tipped sub-tenon?s anesthesia cannula was introduced and passed posteriorly along the globe where non- preserved plain lidocaine was injected into posterior sub-Tenon?s space. A sideport knife was used to make a paracentesis port inferotemporally. Intraocular phenylephrine/lidocaine was injected into the anterior chamber. The anterior chamber was filled with viscoelastic. A keratome knife was used to construct a 2-plane near-clear corneal tunnel extending 2.0mm into clear cornea superiortemporally. A flap was raised on the anterior capsule and capsulorhexis forceps were used to complete a continuous curvilinear capsulorhexis of 5.0 mm. Balanced salt solution was then used to perform cortical cleaving hydrodissection and nuclear hydrodelineation until the lens could be freely rotated within the capsular bag. The lens nucleus was then disassembled and removed within the capsular bag and iris plane using phacoemulsification. Residual cortical material was removed using the I/A handpiece. The posterior capsule was carefully polished to remove as much residual lens epithelial cells as safely possible. The capsular bag was then inflated and the anterior chamber deepened with viscoelastic. The lens implant described above was inserted into the capsular bag using the RICHARD [place] Injector. A Kuglen hook was used to dial the IOL into position. Residual viscoelastic was then removed first from posterior to the IOL, then from the anterior chamber using the I/A handpiece. The lens implant was noted to center nicely within the capsular bag. The incisions were stromally hydrated, and the anterior chamber was reformed using BSS. Then 0.5cc of moxifloxacin 1.0mg/ml were injected into the capsular bag and anterior chamber. The incisions were checked with a Weck spear and found to be secure. Several drops of ophthalmic povidone-iodine 5% were then applied to the eye followed by two drops of Imprimis combination prednisolone/moxifloxacin/nepafenac solution. The drapes were removed and a clear plastic protective eye shield was placed over the eye. The patient was then returned to Same Day Surgery in stable condition.
--- NOTE | 2022-02-27 13:14 | W.ANESPOSTOP ---
Postoperative Evaluation Date, Time and Location Date Performed: 02/27/22 Time Performed: 13:14 Patient Location: Day Surgery Unit Vital Signs Most Recent Imported Vital Signs: Most Recent Vital Signs Temp Pulse Resp BP Pulse Ox 36.4 C L 84 18 143/74 H 96 02/27/22 12:50 02/27/22 12:50 02/27/22 12:50 02/27/22 12:50 02/27/22 12:50 Pain Score Most Recent Pain Score: Most Recent Pain Score Pain Level 0 02/27/22 12:50 Assessment Mental Status: Awake (Alert & Oriented to Patient Baseline) Airway and Respiratory Function: Patent airway with normal (patient baseline) respiratory exam Cardiovascular Function: Hemodynamically Stable Hydration Status: Adequately Hydrated Nausea & Vomiting: No Nausea or Vomiting Pain: Pt. Denies Any Pain Peripheral Nerve Block: Patient did not receive a nerve block
[2022-02-27 13:25] VITALS: BP 131/69; PULSE 83; RESP 16; TEMP 36.6; O2SAT 97
== END 2022-02-27 14:16 | disposition home or self-care (01) ==
PROVIDERS: PCP Family Medicine; Visit Provider Ophthalmology
PROC: (CPT 66984; principal; 2022-02-27 13:30)
DX: H25.11 Age-related nuclear cataract, right eye (principal); I10 Essential (primary) hypertension; E11.9 Type 2 diabetes mellitus without complications; Z79.4 Long term (current) use of insulin
CPT/HCPCS: 66984; V2632

== ENCOUNTER 2022-04-09 11:16 | Emergency (ER) | payer MEDICARE, OTHER, SELFPAY ==
[2022-04-09 11:24] VITALS: BP 176/62; PULSE 83; RESP 16; O2SAT 97
--- NOTE | 2022-04-09 15:33 | ED.GENADUL_ITS ---
Discharge Plan Disposition Patient Disposition: HOME Condition: Improving Discharge Details Clinical Impression: Right leg swelling Primary Care Provider: hCiqui Jeff ED Provider: Perico Palacio Home Meds and New Rx's Prescriptions: Continued Aimovig Autoinjector 140 mg/mL auto-injector 140 mg subcut QMONTH Levemir U-100 Insulin 100 unit/mL solution 75 unit SC HS omeprazole magnesium [Prilosec OTC] 20 mg tablet,delayed release (DR/EC) 20 mg PO HS Label Comments: Brand Name only fluconazole 150 mg tablet 150 mg PO QWEEK PRN nystatin 100,000 unit/gram cream 1 applic TP BID metformin 500 MG tablet extended release 24hr 2,000 mg PO DAILY lysine HCl 500 MG tablet 500 mg PO PRN PRN Label Comments: takes prn Discharge Instructions Additional Instructions: Please return tomorrow for follow-up ultrasound. Call the radiology office in the morning after 8 AM. Apply moist heat to area to reduce discomfort. Medical Decision Making Pleasant and delightful 71-year-old female presents from home with concern for cystic structures on the right leg has had for approximately 1 year. They were hurting her last night and she became concerned. She has not had chest pain or shortness of breath. She will note some mild edema from time to time. On exam she appears to have fatty cysts that are easily compressed and nontender. Do not appreciate cords or masses on the posterior portion of the leg. Do feel it is reasonable to rule out DVT and will arrange for outpatient ultrasound tomorrow. She is stable and appropriate for discharge. HPI General Mode of arrival: ambulatory . Date/Time Provider Initiated Documentation: 04/09/22 11:40 . Limitations to Documentation: no limitations . Information obtained by: patient . History of Present Illness 71 year old F presents to the emergency department with the chief complaint of Right leg lump/cyst, described as mild, Quality is described as dull and constant, and is localized to the right and lower extremity. Patient reports no radiation. Patient started experiencing this month(s) and it has been constant. No relieving factors improve symptom(s), No exacerbating factors reported . Patient notes denies chest pain, fever/chills, rash and shortness of breath. Patient did receive the following treatments prior to arrival, none Related Data Home Medications Medication Instructions Recorded Confirmed metformin 500 mg tablet,extended 2,000 mg PO DAILY 11/03/12 04/09/22 release 24hr lysine HCl 500 mg tablet 500 mg PO PRN PRN 07/26/14 04/09/22 fluconazole 150 mg tablet 150 mg PO QWEEK PRN 12/27/19 04/09/22 insulin detemir U-100 100 unit/mL 75 unit subcut HS 12/27/19 04/09/22 subcutaneous solution (Levemir U-100 Insulin) nystatin 100,000 unit/gram topical 1 applic topical BID 12/27/19 04/09/22 cream omeprazole magnesium 20 mg 20 mg PO HS 12/27/19 04/09/22 tablet,delayed release (Prilosec OTC) erenumab-aooe 140 mg/mL 140 mg subcut QMONTH 05/09/20 04/09/22 subcutaneous auto-injector (Aimovig Autoinjector) Allergies Allergy/AdvReac Type Severity Reaction Status Date / Time sulfamethoxazole Allergy Intermediate Skin Rash Verified 04/09/22 11:27 [From Bactrim] trimethoprim [From Bactrim] Allergy Intermediate Skin Rash Verified 04/09/22 11:27 PLAICDO Inhibitors AdvReac Intermediate Epistaxis Verified 04/09/22 11:27 aspirin AdvReac Intermediate Epistaxis Verified 04/09/22 11:27 losartan [Losartan] AdvReac Mild Muscle Verified 04/09/22 11:27 Cramps sulfite AdvReac Headache Verified 04/09/22 11:27 General Stated Complaint: [employer] NIKI: 4 Review of Systems Narrative: See HPI. 4 systems reviewed and otherwise negative PFSH All Active Problems (Updated 04/09/22 @ 15:38 by Perico Palacio MD) Right leg swelling (Acute) Facial pain (Acute) Palpitations (Acute) Medical History Benign essential hypertension Chest pain Pt. states this was a few years ago before she lost weight and no longer has chest pain. Chronic tension headache Diabetes mellitus Diabetes mellitus type 1 Pt. states this is incorrect, it is type II Fibromyalgia GERD (gastroesophageal reflux disease) Hypothyroidism pt. states her thyroid levels came back normal Insulin dependent diabetes mellitus Migraine headache Osteopenia Palpitations PUD (peptic ulcer disease) Recurrent sinusitis Recurrent vaginitis Rheumatoid factor positive Solitary pulmonary nodule Surgical History H/O: hysterectomy Hx of appendectomy Hx of arthroscopic knee surgery S/P cholecystectomy Family History Sister , age 65 Cancer Social History Smoking/Tobacco Use Status: Never Smoking risk assessment performed?: Yes Alcohol Intake: never Drug use: Never Substance use type: does not use Do you feel safe at home: Yes Do you feel safe in your relationship?: Yes History History 3 Para 3 Hx # Term Pregnancies Multiple births Hx # Pregnancies Ectopic pregnancies AB induced Hx Number of Living Children AB spontaneous Exam Narrative Exam Narrative: GEN: awake, alert, oriented 3. Pleasant, well groomed, interactive. HEAD: Normocephalic, atraumatic EYES: PERRL, EOMI NECK: Full ROM, no TAVARES, no menigismus CHEST/RESP: No respiratory EXT: Full ROM, trace pedal edema, no rash. Soft compressible cystic structures on the right mid calf laterally. No overlying erythema or induration Neuro: Grossly normal neurologic exam, conversant, interactive. Psych: Speech fluent, thoughts congruent, affect normal Course Vital Signs Vital signs: Vital Signs Pulse 83 04/09/22 11:24 Respiratory Rate 16 04/09/22 11:24 Blood Pressure 176/62 H 04/09/22 11:24 Pulse Oximetry 97 04/09/22 11:24 Pulse 83 04/09/22 11:24 Respiratory Rate 16 04/09/22 11:24 Respiratory Effort 04/09/22 11:28 Blood Pressure 176/62 H 04/09/22 11:24 Blood Pressure Position Sitting 04/09/22 11:24 Pulse Oximetry 97 04/09/22 11:24 Oxygen Delivery Method Room Air 04/09/22 11:24 Oxygen Flow Rate 0 04/09/22 11:24 Pain Level 5 04/09/22 11:24
--- NOTE | 2022-04-09 22:03 | NUR.NOTE ---
Ultrasound requisition faxed to DI for R LE ultrasound to r/o DVTNursing Note:
== END 2022-04-09 15:47 | disposition home or self-care (01) ==
PROVIDERS: Emergency Provider Emergency Medicine; PCP Family Medicine
DX: M79.89 Other specified soft tissue disorders (principal); I10 Essential (primary) hypertension; E11.9 Type 2 diabetes mellitus without complications
CPT/HCPCS: 99281; 99282

== ENCOUNTER → 2022-04-10 00:23 | Outpatient (CLI) | payer MEDICARE, OTHER, SELFPAY ==
--- NOTE | 2022-04-10 | DI.US_ITS ---
Exam(s) US LOWER EXTREMITY VENOUS RT EXAM: US LOWER EXTREMITY VENOUS RT CLINICAL HISTORY: RT LEG CYSTS WITH SWELLING, ? DVT. TECHNIQUE: Lower extremity venous ultrasound performed using grayscale, color-flow, and spectral Do ppler analysis. COMPARISON: No exams were available for comparison FINDINGS: The common femoral, femoral and popliteal veins demonstrate normal compressibility, augmentation, and color Doppler. The posterior tibial veins are patent. No saphenous vein thrombosis or other superfi cial venous thrombosis is seen. No hematoma or Sanches's cyst is seen. Palpable abnormalities are not ed in the lateral lower leg. There is no evidence of a drainable fluid collection in this area. The re is somewhat linear configuration which could represent an area of scarring. There is a nonspecifi c fatty echogenicity focus measuring 7 x 7 x 2 millimeters could represent a small lipoma. IMPRESSION: No evidence of DVT. Question of small lipoma. Suspicious mass or fluid collection. DATA REPOSITORY:
--- OUTSIDE RECORDS SUMMARY | 2022-04-10 00:25 | XMS_ITS | Encounter Summary ---
:1950 [place] [address] Care Team Providers Name Role Phone Chiqui Jeff MD Primary Care Provider Encounter Details Date Type Department Care Team Description 07/21/2021 Telephone Neurology at [facility] Yeny Ojeda [facility] [address] [place] [address] [place] [address] [phone] (Wo rk) Social History Tobacco Use Types Packs/Day Years Used Date Never Smoker Smokeless Tobacco: Never Used Alcohol Use Standard Drinks/Week Comments Not Currently 0 (1 standard drink = 0.6 oz pure alcoho l) Sex Assigned at Date Recorded Not on file documented as of this encounter Miscellaneous Notes Telephone Encounter - Rayna Barrow RN - 07/21/2021 12:00 PM EST Phoned pt with results. She noted that she had problems with the CL and that she had an internal yeast infection. She took it for a couple of weeks and was able to sew again. Has not sewn for years. She had a terrible yeast infection that caused constipation. She states that she is intolerant to medications. Enc to try 1/2 tid again soon to see if it helps without reaction. Pt agrees with plan will call with any problems. Follow up in August. Of note she has odd reactions to all meds. ie generic PPI causes a rash on her legs that appears to be razor burn. Etc... Telephone Encounter - Rusty Yeny DO Laura - 07/21/2021 9:46 AM EST Please let Lo know that her score is mildly impaired (microsmia) scored 32/40 correct Yeny Ojeda DO Telephone Encounter - Sada Partida RN - 07/21/2021 9:33 AM EST OLFACTORY TESTING: ? [facility] SMELL IDENTIFICATION TEST (UPSIT) ? UPSIT SCORE: ?? 32/40 ?scores as microsmia ? 00 - 05 ?? FACTITIOUS ? 06 - 19 ?? ANOSMIA ? 20 - 33 ?? MICROSMIA (MALES) ? 20 - 34 ?? MICROSMIA (FEMALES) ?? NORMAL: 34 - 40 ?? NORMOSMIA (MALES) ?? NORMAL: 35 - 40 ?? NORMOSMIA (FEMALES) documented in this encounter Plan of Treatment Upcoming Encounters Date Type Specialty Care Team Description 06/23/2022 Office Visit Neurology Deacon Rose HAND COOPER HEL[facility] [address] [place], [place] [address] (Wo rk) 09/28/2022 Office Visit Neurology Charisse Webb [facility] COOPER [facility] [address] [place] [address] (Wo rk) documented as of this encounter Visit Diagnoses Not on filedocumented in this encounter Care Teams Loop Machine Operator Relationship Specialty Start Date End Date Chiqui Jeff MD PCP - General 07/15/10 [address] [place] [address] documented as of this encounter
--- OUTSIDE RECORDS SUMMARY | 2022-04-10 00:25 | XMS_ITS | Encounter Summary ---
:1950 [place] [address] Care Team Providers Name Role Phone Chiqui Jeff MD Primary Care Provider Reason for Visit Reason Onset Date Comments Other 11/29/2020 Encounter Details Date Type Department Care Team Description 11/29/2020 Telephone Neurology at [facility] Moody Perez MD Other [address] [facility] [place] [address] [place] [address] [phone] (Wo rk) Social History Tobacco Use Types Packs/Day Years Used Date Never Smoker Smokeless Tobacco: Never Used Alcohol Use Standard Drinks/Week Comments Not Currently 0 (1 standard drink = 0.6 oz pure alcoho l) Sex Assigned at Date Recorded Not on file documented as of this encounter Miscellaneous Notes Telephone Encounter - Dina Naranjo RN - 12/03/2020 9:24 AM EDT Call made to [facility] patient assistance program. Patient is denied due to exceeding financial income. Per the customer solutions representative, the medical out of pocket expense must be 7% of the income. The customer solutions representative also asks that the cost of the Ubrelvy, even if the patient did not purchase the medication be included on the list as part of the out of pocket expense. The customer solutions representative will ask that the application be reviewed again. They will contact the patient with the update, either an approval or the continuation of the denial. Call made to the patient. Informed the patient that the patient assistance program with re-evaluate her application. Understanding verbalized. Telephone Encounter - Dina Naranjo RN - 12/02/2020 10:40 AM EDT Call made to [employer] patient assistance program. Unable to speak with a customer solutions representative after being on hold for > 35 minutes x2. Telephone Encounter - Nelda Izquierdo - 11/29/2020 4:21 PM EDT Call Center / [facility] Message - General Issue Call Provider patient sees in Clinic: oMody Perez Caller and relationship (if other than patient-full name): patient Call back number: [phone] Ok to leave a message: yes Reason for call: patient is calling to follow up with Dr. Perez about sending her Ubrelvy medication to [facility] and states she called them and they told hte patient she was denied in September but never informed her or sent her a letter. Patient states [facility] must've doubled her finances as they are only 54,000 and they claimed it was 109,000 and they weren't going to help her and patient is wondering if Dr. Perez can find out if that's what had happened and see if this could be prescribed for her, please call back to discuss. Disposition of Call (choose one and remove others): ??? Routine Message sent to the Nurse: x documented in this encounter Plan of Treatment Upcoming Encounters Date Type Specialty Care Team Description 06/23/2022 Office Visit Neurology Deacon Rose, COACH DRIVER [facility] [place] [address] [place] [address] (Wo rk) 09/28/2022 Office Visit Neurology Charisse Webb [facility] [address] [address] (Wo rk) documented as of this encounter Visit Diagnoses Not on filedocumented in this encounter Care Teams Call Center Assistant Relationship Specialty Start Date End Date Chiqui Jeff MD PCP - General 07/15/[address] [place] [address] documented as of this encounter
--- OUTSIDE RECORDS SUMMARY | 2022-04-10 00:25 | XMS_ITS | Encounter Summary ---
:1950 Author Organization [facility] [place] [address] Care Team Providers Name Role Phone Chiqui Jeff MD Primary Care Provider Encounter Details Date Type Department Care Team Description 12/16/2021 Office Visit Neurology at [facility] Yeny Ojeda DO Parkinson's disease [facility] [place] [address] [place] [address] [phone] (Wo rk) Social History Tobacco Use Types Packs/Day Years Used Date Never Smoker Smokeless Tobacco: Never Used Alcohol Use Standard Drinks/Week Comments Not Currently 0 (1 standard drink = 0.6 oz pure alcoho l) Sex Assigned at Date Recorded Not on file documented as of this encounter Last Filed Vital Signs Vital Sign Reading Time Taken Comments Blood Pressure 154/66 12/16/2021 10:47 AM EDT Pulse 78 12/16/2021 10:47 AM EDT Temperature - - Respiratory Rate - - Oxygen Saturation - - Inhaled Oxygen Concentration - - Weight 67.6 kg (149 lb) 12/16/2021 10:47 AM EDT Height - - Body Mass Index 25.58 06/16/2021 2:43 PM EDT documented in this encounter Patient Instructions Patient InstructionsYeny Ojeda DO - 12/16/2021 11:20 AM EDT Requip 2 mg XL: Week 1: take 1 in the AM Week 2: Take 2 in the AM Week 3: Take 3 in the AM. We can stay on this, or increase further if this dose is not working. Yeny Ojeda DO documented in this encounter Progress Notes Yeny Ojeda DO - 12/16/2021 11:00 AM EDT Movement Disorders Follow-up Note [facility] Ebony Villanueva is here for a follow-up on Parkinson's. She states that she couldn't tolerate carbidopa/levodopa. States that she stayed awake for 3 nights and urinated too much with the medication.States it was like all the water went straight through her . Occasionally she does have insomnia, but states it was worse when she was on Carbidopa/levodopa. She states that she only took ONE in the morning and had this side effect. States she even tried one 1/2 of a pill and felt this side effect. She is going to PT for Parkinson's disease and feels that that is helpful. Interested in trying another medication for her symptoms. Problem List: Patient Active Problem List Diagnosis Code ??? Chronic migraine without aura, with intractable migraine, so stated, with status migrainosus G43.711 ??? Chronic pain syndrome G89.4 ??? DM (diabetes mellitus), type 2 E11.9 ??? HTN (hypertension) I10 ??? Hypothyroidism E03.9 ??? Osteopenia M85.80 ??? PUD (peptic ulcer disease) K27.9 ??? Rheumatoid factor positive R76.8 Current Medications See updated medication list below. Outpatient Medications Prior to Visit Medication Sig Dispense Refill ??? Lysine 500 mg Tablet Take by mouth. L- Lysine ??? erenumab-aooe (Aimovig Autoinjector) 140 mg/mL Auto-Injector Inject 140 mg subcutaneously every 28 days. 3 mL 11 ??? insulin detemir U-100 (LEVEMIR) Insulin Pen Inject 75 Units subcutaneously nightly. ??? nystatin (MYCOSTATIN) Cream Apply 1 Application topically as needed. ??? fluconazole (Diflucan) 150 mg Tablet Take 150 mg by mouth as needed. ??? omeprazole magnesium (PRILOSEC ORAL) Take 1 tablet by mouth daily. Brand otc only ??? vit C/E/Zn/coppr/lutein/zeaxan (PRESERVISION AREDS-2 ORAL) Take 1 capsule by mouth daily. ??? metFORMIN (GLUCOPHAGE) 1,000 mg tablet Take by mouth 2 times daily. (Patient taking differently:Take by mouth 2 times daily.) No facility-administered medications prior to visit. Drug Allergies and Adverse Drug Reactions See updated allergy/ADR list below. Duloxetine hcl, Gabapentin, Sulfamethoxazole-trimethoprim, and Topiramate Review of Systems + tremor + slowness of movement PHYSICAL EXAMINATION General Physical Examination Appearance: The patient is healthy-appearing and appears of stated age. she appears well-nourished and comfortable. Vital Signs: Recorded by the nurse as listed above. Head: Atruamatic. Normocephalic. Extremities: Normal limb color and temperature; normal radial pulses; no pedal or ankle edema. Skin: Without rash or lesions Neurological Examination Mental status: The patient is alert, calm, oriented x 3 Cranial nerves: Pupils are symmetric, equal, round, and normally reactive to light. Visual persaud are full in all persaud. Eye movements are conjugate and full without nystagmus. Facial movements and facial sensation are normal. Hearing is normal bilaterally. Tongue and uvula are midline. Speech is clear and fluent. Shoulder shrug and head movements are normal. Motor: Limb muscles show no weakness, atrophy, fasciculations, myoclonus, or drift. There is restingtremor primarily on the right side, very minimally on the left. There is postural tremor/re-emergenttremor present more on the right, also slightly on the left. There is very minimal action tremor present. There is mild bradykinesia R>L, and mild rigidity R>L. Sensory: Limbs show normal sensation bilaterally to light touch Cerebellar: no faisal ataxia Gait and station: Normal stance; gait demonstrates decreased arm swing particularly on the right side as she ambulates Deep Tendon reflexes: Normal throughout symmetrically in the upper as well as lower extremities ASSESSMENT AND PLAN Ebony Villanueva is a pleasant 71 y.o. yr old female with idiopathic Parkinson's disease. She does not want to take Sinemet again/couldn't tolerate even at extremely low doses (1/2 pill once a day). She would like to try another option. We can trial Requip XL, once daily. I would suggest beginning with 2 mg, and titrating slowly up to 6mg once daily. She was advised on side effects including hallucinations/compulsive behaviors - usually at higher doses, and nausea, drowsiness, etc. She will let me know if she has any issues at all with the medication. She will f/u in a few months to make sure she is tolerating without difficulty. All questions were answered. The patient was told to call with any additional questions or concerns that should arise in the interim. Patient Instructions Requip 2 mg XL: Week 1: take 1 in the AM Week 2: Take 2 in the AM Week 3: Take 3 in the AM. We can stay on this, or increase further if this dose is not working. DO Yeny Severino D.O. Movement Disorders Neurology Department [address] [address] TEL: [phone] FAX: [phone] [email or web address] documented in this encounter Plan of Treatment Upcoming Encounters Date Type Specialty Care Team Description 06/23/2022 Office Visit Neurology Deacon Rose, EPIDEMIOLOGY INVESTIGATOR [facility] [address] [place], [place] [address] (Wo rk) 09/28/2022 Office Visit Neurology Charisse Webb EPIDEMIOLOGY INVESTIGATOR [facility] [place], [place] [address] (Wo rk) documented as of this encounter Visit Diagnoses Diagnosis Parkinson's disease Paralysis agitans documented in this encounter Care Teams Material Handler 2Nd Shift Relationship Specialty Start Date End Date Chiqui Jeff MD PCP - General 07/15/10 [address] [place] [address] documented as of this encounter
--- OUTSIDE RECORDS SUMMARY | 2022-04-10 00:25 | XMS_ITS | Encounter Summary ---
:1950 [place] [address] Care Team Providers Name Role Phone Chiqui Jeff MD Primary Care Provider Reason for Visit Reason Onset Date Comments Medication Problem 12/18/2021 PA needed Prior Authorization 12/18/2021 Encounter Details Date Type Department Care Team Description 12/18/2021 Refill Neurology at [facility] Yeny Ojeda DO Parkinson's disease [facility] [place] [address] [place], [place] [id number] [phone] (Wo rk) Social History Tobacco Use Types Packs/Day Years Used Date Never Smoker Smokeless Tobacco: Never Used Alcohol Use Standard Drinks/Week Comments Not Currently 0 (1 standard drink = 0.6 oz pure alcoho l) Sex Assigned at Date Recorded Not on file documented as of this encounter Miscellaneous Notes Telephone Encounter - Isis Avendano - 12/18/2021 1:28 PM EDT [facility] regarding a Prior Auth for the medication Ropinirole. She stated that the insurance company also preferred:Pramipexole or Dihydrochloride or the Ropinirole HCL. Please update when PA is available. She also stated that currently their fax box is broken. Please advise. Telephone Encounter - Laura Grimes RN - 12/18/2021 1:18 PM EDT Copied from [facility] #[id number]. Topic: Specialty Dept CRMs - Prior Auth Med >> Dec 18, 2021 12:28 PM Gale Landin wrote: Prior Auth Needed Karate Black Belt: Yeny Ojeda DO Relationship (if other than patient-full name): Nathen, Ebony Villanueva Medication, Dose, and Frequency (Copy and Paste from e-DH): Ropinirole 2mg tablet sustained release Name of Prescriber: Yeny Ojeda DO Name of Pharmacy: [facility] Pharmacy: [facility] Name of Prescription Carrier (if different than health coverage): [employer] Benefits or Prescription Carrier ID#: [id number] Prescription Carrier Phone #: [phone] BIN#: [id number] N#: [id number] Will discuss with Dr Ojeda documented in this encounter Plan of Treatment Upcoming Encounters Date Type Specialty Care Team Description 06/23/2022 Office Visit Neurology Deacon Rose, ROCKET ENGINE COMPONENT MECHANIC [facility] [address], [place] [address] (Wo rk) 09/28/2022 Office Visit Neurology Charisse Webb ROCKET ENGINE COMPONENT MECHANIC [facility] [address] [place], [place] [address] (Wo rk) documented as of this encounter Visit Diagnoses Diagnosis Parkinson's disease Paralysis agitans documented in this encounter Care Teams Data Processing Manager Relationship Specialty Start Date End Date Chiqui Jeff MD PCP - General 07/15/10 [address] [place] [address] documented as of this encounter
--- OUTSIDE RECORDS SUMMARY | 2022-04-10 00:25 | XMS_ITS | Encounter Summary ---
:1950 Author Organization [facility] Address [facility] [place] [address] Care Team Providers Name Role Phone Chiqui Jeff MD Primary Care Provider Encounter Details Date Type Department Care Team Description 06/04/2021 Orders Only Neurology at [facility], Maria Elena Ibanez MD without aura, with [address] [facility] intractable migraine, [place] [address] stated, with status [phone] [place], [place] [address] migrainosus Social History Tobacco Use Types Packs/Day Years Used Date Never Smoker Smokeless Tobacco: Never Used Alcohol Use Standard Drinks/Week Comments Not Currently 0 (1 standard drink = 0.6 oz pure alcoho l) Sex Assigned at Date Recorded Not on file documented as of this encounter Plan of Treatment Upcoming Encounters Date Type Specialty Care Team Description 06/23/2022 Office Visit Neurology Deacon Rose, AURICULAR ACUPUNCTURIST [facility] ER [address], [place] [address] (Wo rk) 09/28/2022 Office Visit Neurology Charisse Webb AURICULAR ACUPUNCTURIST [facility] er [place], [place] [address] (Wo rk) documented as of this encounter Visit Diagnoses Diagnosis Chronic migraine without aura, with intr actable migraine, so stated, with status migrainosus documented in this encounter Care Teams Network Contract Manager Relationship Specialty Start Date End Date Chiqui Jeff MD PCP - General 07/15/10 [address] [place] [address] documented as of this encounter
--- OUTSIDE RECORDS SUMMARY | 2022-04-10 00:25 | XMS_ITS | Clinical Summary ---
:1950 Author Organization [facility] Address [facility] [place] [address] Care Team Providers Name Role Phone Chiqui Jeff MD Primary Care Provider Allergies Active Allergy Reactions Severity Noted Date Comments Maynor Inhibitors Medium 07/29/2018 Other reactio n(s): Epistaxis Aspirin Medium 07/29/2018 Other reaction( s): Epistaxis Duloxetine Hcl CIS - stomach pain, DOUGLAS Gabapentin CIS - sleepines s Losartan Low 07/29/2018 Other reaction( s): Muscle Cramps Sulfamethoxazole-Trime CIS - stomach pain thoprim Sulfites Other (See Medium 07/29/2018 Comments) Topiramate CIS - dizziness , disorientation Trimethoprim Rash Medium 07/29/2018 Medications Medication Sig Dispensed Refills Start Date End Date Status metFORMIN Take by mouth 2 times 0 04/02/2010 Active (GLUCOPHAGE) 1,000 daily. mg tablet insulin detemir Inject 75 Units 0 Active U-100 (LEVEMIR) subcutaneously Insulin Pen nightly. nystatin Apply 1 Application 0 10/05/2019 Active (MYCOSTATIN) Cream topically as needed. fluconazole Take 150 mg by mouth 0 10/05/2019 Active (Diflucan) 150 mg as needed. Tablet omeprazole Take 1 tablet by 0 Ac tive magnesium (PRILOSEC mouth daily. Brand ORAL) otc only vit Take 1 capsule by 0 Ac tive C/E/Zn/coppr/lutein mouth daily. /zeaxan (PRESERVISION AREDS-2 ORAL) Lysine 500 mg Take 500 mg by mouth 0 07/26/2014 Active Tablet as needed. L- Lysine rOPINIRole (Requip) Take 1 tablet by 63 tablet 0 12/22/2021 Active 2 mg mouth 3 times daily TabletIndications: for 7 days, THEN 2 Parkinson's disease tablets 3 times daily for 7 days. ubrogepant Take 1 tablet by 10 tablet 5 03/30/2022 A ctive (Ubrelvy) 100 mg mouth daily as Tablet needed. For severe migraine. May repeat dose in 2 hours if needed erenumab-aooe Inject 1 mL 3 mL 12 03/30/2022 Act mckenzie (Aimovig subcutaneously every Autoinjector) 140 28 days. mg/mL Auto-InjectorIndica tions: Chronic migraine without aura, with intractable migraine, so stated, with status migrainosus Active Problems Problem Noted Date Parkinson's disease 12/22/2021 Chronic migraine without aura, with intractable migrai ne, so stated, with status migrainosus Chronic pain syndrome Overview: head, chest, joints DM (diabetes mellitus), type 2 HTN (hypertension) Hypothyroidism Osteopenia PUD (peptic ulcer disease) Rheumatoid factor positive Encounters Date Type Specialty Care Team Description 04/03/2022 Telephone Neurology Charisse Webb, Prior Au thorization (Ubrelvy BEATER HEAD ) 03/30/2022 Office Visit Neurology Charisse Webb, Chronic migraine without BEATER HEAD aura, with intr actable migraine, so st ated, with status migraino monse from Last 3 Months Family History Medical History Relation Comments Migraines Daughter 1 Migraines Daughter 2 Migraines Mother Migraines Son Relation Status Comments Daughter 1 Daughter 2 Mother Son Social History Tobacco Use Types Packs/Day Years Used Date Never Smoker Smokeless Tobacco: Never Used Alcohol Use Standard Drinks/Week Comments Not Currently 0 (1 standard drink = 0.6 oz pure alcoho l) Sex Assigned at Date Recorded Not on file Last Filed Vital Signs Vital Sign Reading Time Taken Comments Blood Pressure 145/67 03/30/2022 2:00 PM EDT Pulse 89 03/30/2022 2:00 PM EDT Temperature 36.1 ??C (97 ??F) 11/25/2020 11:43 AM EDT Respiratory Rate - - Oxygen Saturation - - Inhaled Oxygen - - Concentration Weight 70.2 kg (154 lb 12.8 03/30/2022 2:00 PM on scale shoes off oz) EDT Height 162.6 cm (5' 4) 03/30/2022 2:00 PM reported EDT Body Mass Index 26.57 03/30/2022 2:00 PM EDT Plan of Treatment Upcoming Encounters Date Type Specialty Care Team Description 06/23/2022 Office Visit Neurology Deacon Rose, BEATER HEAD [facility] [address] [place], [place] [address] (Wo rk) 09/28/2022 Office Visit Neurology Charisse Webb, BE[facility] HEAD [facility] [place], [place] [address] (Wo rk) Health Maintenance Due Date Last Done Comments Covid-19 Vaccine (#1) 1955 Pneumoccocal Vaccine: 65+ (1 - PCV) 1956 DM Creatinine yearly 1960 DM Hemoglobin A1c 1960 DM Opthalmology Exam 1960 DM Urine Microalbumin yearly 1960 Hepatitis C Screening 1968 Lipid Screening 1968 Tdap adult 1969 Tetanus vaccine 1969 Breast Cancer Share Decision Needed 1990 Colonoscopy 1995 Breast Cancer screening 2000 Zoster vaccine (1 of 2) 2000 Advance Directive 2005 Bone Density Scan 2015 Influenza (Flu) vaccine (1 of 1 - Influenza standard 04/23/2022 series) Insurance Payer Benefit Plan / Subscriber ID Effective Dates Phone Addre ss Type Group MEDICARE MEDICARE PART [id number] 2019-Presen [phone] [place] [phone] [employer] [place] [id number] 2019-[employer] [place] [id number] Care Teams Embalmer/Funeral Director Relationship Specialty Start Date End Date Chiqui Jeff MD PCP - General 07/15/10 [address] [place] [address]
--- OUTSIDE RECORDS SUMMARY | 2022-04-10 00:25 | XMS_ITS | Encounter Summary ---
:1950 Author Organization [facility] [place] [address] Care Team Providers Name Role Phone Chiqui Jeff MD Primary Care Provider Reason for Visit Reason Onset Date Comments Medication Refill 07/19/2020 Encounter Details Date Type Department Care Team Description 07/19/2020 Refill Neurology at [facility], [place] Quiroga Ch ronaniket migraine without Road aura, with intractable [address] [facility] migraine, so stated, [place] [address] with status migrainosus [phone] [place], [place] [address] (Wo rk) Social History Tobacco Use Types [...] Description 06/23/2022 Office Visit Neurology Deacon Rose, LACTATION NURSE [facility] ER [address] [place], [place] [address] (Wo rk) 09/28/2022 Office Visit Neurology Charisse Webb LACTATION NURSE [facility] er [address] [place] [address] (Wo rk) documented as of this encounter Visit Diagnoses Diagnosis Chronic migraine without aura, with intr actable migraine, so stated, with status migrainosus documented in this encounter Care Teams Director Business Relationship Specialty Start Date End Date Chiqui Jeff MD PCP - General 07/15/10 [address] [facility] [place] [address] documented as of this encounter
--- OUTSIDE RECORDS SUMMARY | 2022-04-10 00:25 | XMS_ITS | Encounter Summary ---
:1950 Author Organization [facility] Address [facility] [place] [address] Care Team Providers Name Role Phone Chiqui Jeff MD Primary Care Provider Encounter Details Date Type Department Care Team Description 03/30/2022 Office Visit Neurology at [facility] Franco C h[address] migraine [address] HEAD OF CYTOGENETICS without aura, with [address] [facility] intractable migraine, [place], [place] Dr [place], [place] [id number] [place] [address] status migrainosus [phone] (Wo rk) Social History Tobacco Use Types [...] Pulse 89 03/30/2022 2:00 PM EDT Temperature - - Respiratory Rate - - Oxygen Saturation - - Inhaled Oxygen - - Concentration Weight 70.2 kg (154 lb 12.8 03/30/2022 2:00 PM on scale shoes off oz) EDT Height 162.6 cm (5' 4) 03/30/2022 2:00 PM reported EDT Body Mass Index 26.57 03/30/2022 2:00 PM EDT documented in this encounter Progress Notes Charisse Webb APRN - 03/30/2022 2:00 PM EDT Neurology Headache Clinic Follow-up Patient Name: Ebony Villanueva Patient ID: Ebony Villanueva is a 71 y.o. RH female with PMH chronic migraine, DMII, PUD, macular degeneration, rheumatoid factor pos, chronic pain, hypothyroidism, HTN who presents to the headache clinic for follow up. HPI: Onset of headache in childhood +Family Hx Timing: she might wake up with headache, or it could come on any time of day Previous workup: MRI brain 2019 NO evidence of infarct or mass Small vessel disease. The HAs were associated with rare typical visual aura, wavy lines or round circles lasting 5 minutes5/7 days per week. The HAs are global, L<R, in the ear and neck, with throbbing, photophonophobia, and Nausea. Previous Workup. Interval History: Patient Reported: MIDAS Responses 03/30/2022 Days missed school/work 0 Days productivity at work/school reduced 0 Days did not do household work - Days productivity related to housework reduced - Days missed family, social or leisure activities - Days had headache 60 Pain scale 8 MIDAS Score - MIDAS Adjusted Score - Aimovig is effective for reducing intensity of migraine 4 days a week with mild pain. At this time, she does have Headache free days. 16/30 headache days. Before Aimovig -very severe, 15/10 pain Now with average pain 6/10 pain. +sensitive to smell, +nausea, +sound sensitive - improved with Aimovig. No side effects that she knows of, maybe some constipation. Neck spasms and pain. She says she is sensitive to medications, and would prefer not to try muscle relaxers. Hasn't been able to access Ubrelvy Medications: Current Outpatient Medications Medication Sig Dispense Refill ??? ubrogepant (Ubrelvy) 100 mg Tablet Take 1 tablet by mouth daily as needed. For severe migraine. May repeat dose in 2 hours if needed 10 tablet 5 ??? erenumab-aooe (Aimovig Autoinjector) 140 mg/mL Auto-Injector Inject 1 mL subcutaneously every 28days. 3 mL 12 ??? Lysine 500 mg Tablet Take 500 mg by mouth as needed. L- Lysine ??? insulin detemir U-100 (LEVEMIR) Insulin Pen [...] taking differently:Take by mouth 2 times daily.) ??? rOPINIRole (Requip) 2 mg Tablet Take 1 tablet by mouth 3 times daily for 7 days, THEN 2 tablets 3 times daily for 7 days. 63 tablet 0 No current facility-administered medications for this visit. Physical Exam: Patient Vitals for the past 24 hrs: Pulse BP 03/30/22 1400 89 145/67 Constitutional: Patient of apparent stated age, no acute distress Neuro: MS: Alert, oriented, clear language, no dysarthria, follows commands CN: PERRL Motor: 5/5 strength throughout Gait: normal base and arm swing Labs: No results found for this or any previous visit (from the past 24 hour(s)). Diagnostic Tests and Imaging: Assessment and Plan: Ebony Villanueva is a 71 y.o. RH female with PMH chronic migraine, DMII, PUD, macular degeneration, rheumatoid factor pos, chronic pain, hypothyroidism, HTN who presents to the headache clinic for follow up. Patient is doing well a this time on Aimovig. She reports 16/30 headache days per month. Pain severity is reduced as well on Aimovig. She does not have a good rescue medication and was unable to accessUbrelvy because it was cost prohibitive. We do new prior auth for Ubrelvy. #chronic migraine Follow up in 6 months Charisse Webb APRN [facility] Neurology Headache Clinic Medications Tried ([x] checked have been tried in the past Anti-seizure: [] Acetazolamide (Diamox) [] Carbamazepine (Tegretol) [] Clonazepam [x] Gabapentin (Neurontin) [] Lamotrigine (Lamictal) [] Sodium Valproate (Depakote) [x] Topiramate (Topamax) [] Zonisamide (Zonegran) Anti-Depressants: SSRI: [] Citalopram (Celexa) [] Escitalopram (Lexapro) [] Fluvoxamine (Luvox) [] Fluoxetine (Prozac) [] Paroxetine (Paxil) [] Sertraline (Zoloft) SNRI: [] Desvenlafaxine (Pristiq/Khedezla) [x] Duloxetine (Cymbalta) [] Levomilnacipran (Fetzima) [] Milnacipran (Savella) [] Venlafaxine (Effexor) TCA: [x] Amitriptyline (Elavil) [] Nortriptiline (Pamelor) [] Protriptyline (Vivactil) [] Trimipramine (Surmontil) MAOI: [] Phenelzine (Nardil) [] Selegiline (Emsam) [] Tranylcypromine (Parnate) Atypicals: [] Bupropion (Wellbutrin) [] Mirtazapine (Remeron) [] Nefazodone (Serzone) [] Trazodone [] Vilazodone (Viibryd) [] Vortioxetine (Trintellix) Anti-Hypertensives: PLACIDO Inhibitors: [] Benazepril (Lotensin) [] Captopril [x] Enalapril (Vasotec) [] Fosinopril [] Lisinopril (Prinivil) Alpha-1 Blockers [] Doxazosin [] Prazosin [] Tetrazosin Angiotensin II Receptor Blockers: [x] Losartan [] Candesartan (Atacand) Beta Blockers [] Acebutolol (Sectral) [] Atenolol (Tenormin) [] Bisoprolol (Zebeta) [] Metoprolol (Lopressor) [] Nadolol (Cogard) [] Nebivolol (Bystolic) [x] Propranolol (Inderal) Calcium Channel Blockers: [] Amlodipine (Norvasc) [] Bepridil (Vascor) [] Diltiazem (Cardiazem) [] Felodipine (Plendil) [] Nicardipine (Cardene) [] Nifedipine (Procardia) [] Nisoldipine (Sular) [x] Verapamil Diuretics: [] Acetazolamide (Diamox) [] Furosemide (Lasix) [] Hydrochlorothiazide (Microzide) [] Methazolamide [] Spironolactone (Aldactone) Monoclonal Antibodies: [x] Aimovig - effective for intensity [] Ajovy [] Emgality [] Vyepti Toxins: [] OnabotulinumtoxinA (Botox) Gepants [] Ubrelvy (ubrogepant) - cost prohibitive, could not access [] Nurtec (rimegepant) Ditans - high-affinity 5-HT1F receptor agonist [] Reyvow (lasmiditan) Supplements: [] Coenzyme Q10 [] Magnesium [] Melatonin [] Migrelief (riboflavin, magnesium, feverfew) [] Vitamin B2 (riboflavin) Other: [] Boswellia Juan [] Buspirone (Buspar) [] Doxycycline [] Lidocaine patch (Lidoderm) [] [place] [] Memantine (Namenda) [] Montelukast (Singulair) [] Naloxone [] Oxygen Triptans oral: [] Almotriptan (Axert) [] Eletriptan (Relpax) [] Frovatriptan (Frova) [] Naratriptan (Amerge) [x] Rizatriptan (Maxalt) [x] Sumatriptan (Imitrex) [] Sumatriptan/Naproxen (Treximet) [x] Zolmitriptan (Zomig) Triptans nasal: [] Sumatriptan (Onzetra) nasal powder [] Sumatriptan (Imitrex) nasal spray [] Sumatriptan (Tosymra) nasal spray [] Zomig nasal spray Triptans injectable: [] Sumatriptan (Imitrex) solution 3 mg, 4 mg, 6 mg Ergotamines oral: [] Ergotamine/caffeine tab (Cafergot) [] Methergine [] Methylsergide (Sansert) Ergotamines nasal: [] Dihydroergotamine nasal spray (Migranal) Ergotamine Injectable: [] Dihydroergotamine solution for injection (DHE-45) Ergotamine suppository: [] Ergotamine/caffeine suppository (Migergot) NSAIDS: [] Aspirin [] Celecoxib (Celebrex) [] Diclofenac potassium [] Flurbiprofen [] Ibuprofen (Advil) [] Indomethacin [] Ketoprofen [] Ketorolac (Toradol) [] Meloxicam (Mobic) [] Nabumetone [] Naproxen sodium (Aleve) Anti-Histamines: [] Cyproheptadine (Periactin) [] Diphenhydramine (Benadryl) [] Hydroxyzine (Vistaril/Atarax) Anti-emetics: [] Aprepitant (Emend) [] Chlorpromazine (thorazine) [] Granisetron [] Metoclopramide (Reglan) [] Ondansetron (Zofran) [] Meclizine (Bonine) [] Prochlorperazine (compazine) [] Promethazine (Phenergan) [] Scopolamine Patch Muscle relaxers: [] Baclofen (lioresal) [] Cyclobenzaprine (flexeril) [] Metaxalone (skelaxin) [] Methocarbamol (robaxin) [] Tizanidine (zanaflex) Steroids: [] Dexamethasone (Decadron) PO, IM [] Methylprednisolone (Medrol), PO, IV [] Prednisone PO [] Triamcinolone (Kenalog) IM Procedures: [] Auriculotemporal blocks [] Lumbar puncture [] Occipital nerve blocks [] Sphenopalatine ganglion blocks [] Supraorbital blocks [] Trigger point injections Neuromodulation: [] Cefaly [] gammaCore [] nVNS/Gammacore [] Spring TMS [] Nerivio Non-pharmacologic Tx [] Acupuncture [] Acupressure [] Biofeedback [] Men'S Golf Coach [] Cognitive Behavioral Therapy [] Craniosacral therapy [] Massage therapy [] Physical therapy Benzodiazepines: [] Combination/Other Analgesics: [] Acetaminophen (tylenol) [] Acetaminophen/aspirin/caffeine (Excedrin/Pamprin) [] Acetaminophen/caffeine/pyrilamine maleate (Midol) [] Acetaminophen/dichloralphenazone/isometheptene (Midrin) Opioids/Narcotics/Controlled Substances: [x] Ultram [] Butorphanol (Ketamine/Stadol) [] Marijuana documented in this encounter Plan of Treatment Upcoming Encounters Date Type Specialty Care Team Description 06/23/2022 Office Visit Neurology Deacon Rose, HEAD OF CYTOGENETICS [facility] [address] [place], [place] [address] (Wo rk) 09/28/2022 Office Visit Neurology Charisse Webb APRN [facility] [address] [place], [place] [address] (Wo rk) documented as of this encounter Visit Diagnoses Diagnosis Chronic migraine without aura, with intr actable migraine, so stated, with status migrainosus documented in this encounter Care Teams Defensive Line Coach Relationship Specialty Start Date End Date Chiqui Jeff MD PCP - General 07/15/10 [address] [place] [address] documented as of this encounter
--- OUTSIDE RECORDS SUMMARY | 2022-04-10 00:25 | XMS_ITS | Encounter Summary ---
:1950 [place] [address] Care Team Providers Name Role Phone Chiqui Jeff MD Primary Care Provider Reason for Visit Reason Onset Date Comments Medication Problem 07/25/2020 Encounter Details Date Type Department Care Team Description 07/25/2020 Telephone Neurology at [facility] Moody Perez MD Medication Problem [address] [facility] [place] [address] [place] [address] [phone] (Wo rk) Social History Tobacco Use Types Packs/Day Years Used Date Never Smoker Smokeless Tobacco: Never Used Alcohol Use Standard Drinks/Week Comments Not Currently 0 (1 standard drink = 0.6 oz pure alcoho l) Sex Assigned at Date Recorded Not on file documented as of this encounter Miscellaneous Notes Telephone Encounter - Dina Naranjo RN - 07/25/2020 3:42 PM EST Call made to the patient. Informed the patient I would mail the patient assistance application to her and when completed we will send it to the [employer]. Understanding verbalized. Telephone Encounter - Nelda Izquierdo - 07/25/2020 3:27 PM EST Call Center / Tape Cutter Message - Medication Issue (Not to be used for refill request or medication prior auth request) Provider patient sees in Clinic: Moody Perez Caller and relationship (if other than patient-full name): patient Call Back Number: [phone] Ok to leave a message: yes Reason for call: Medication Issue (if medication issue is a symptom do not use this phrase) Message/information for the nurse: Expensive/ can't afford Name of Medication: ubrogepant (Ubrelvy) 100 mg Tablet Issue with the medication: patient is calling stating this medication will cost her $200 and she cannot afford that and patient states when Moody Perez had called them in if they were too expensive he could get them for her for free and would like to discuss this option, please call back to discuss. Disposition of Call: ?? Routine Message sent to the Nurse x documented in this encounter Plan of Treatment Upcoming Encounters Date Type Specialty Care Team Description 06/23/2022 Office Visit Neurology Deacon Rose, INDUSTRIAL CHEMICALS SUPERVISOR [facility] [address] [place], [place] [address] (Wo rk) 09/28/2022 Office Visit Neurology Charisse Webb INDUSTRIAL CHEMICALS SUPERVISOR [facility] [place], [place] [address] (Wo rk) documented as of this encounter Visit Diagnoses Not on filedocumented in this encounter Care Teams Foreign Languages Department Chair Relationship Specialty Start Date End Date Chiqui Jeff MD PCP - General 07/15/10 [address] [place] [address] documented as of this encounter
--- OUTSIDE RECORDS SUMMARY | 2022-04-10 00:25 | XMS_ITS | Encounter Summary ---
:1950 [place] [address] Care Team Providers Name Role Phone Chiqui Jeff MD Primary Care Provider Encounter Details Date Type Department Care Team Description 06/13[facility]20[facility] [address] [place] [address] [place] [address] [phone] (Wo rk) Social History Tobacco Use Types Packs/Day Years Used Date Never Smoker Smokeless Tobacco: Never Used Alcohol Use Standard Drinks/Week Comments Not Currently 0 (1 standard drink = 0.6 oz pure alcoho l) Sex Assigned at Date Recorded Not on file documented as of this encounter Miscellaneous Notes Telephone Encounter - Jossy Chavez RN - 06/13/2021 3:16 PM EDT [employer] patient financial assistance application and proof of income faxed to [employer] [phone]. documented in this encounter Plan of Treatment Upcoming Encounters Date Type Specialty Care Team Description 06/23/2022 Office Visit Neurology Deacon Rose, WATER MAIN PIPE LAYER [facility] ER [address] [place], [place] [address] (Wo rk) 09/28/2022 Office Visit Neurology Charisse Webb WATER MAIN PIPE LAYER [facility] er [address] [place] [address] (Wo rk) documented as of this encounter Visit Diagnoses Not on filedocumented in this encounter Care Teams Trip Rider Relationship Specialty Start Date End Date Chiqui Jeff MD PCP - General 07/15/10 [address] [place] [address] documented as of this encounter
--- OUTSIDE RECORDS SUMMARY | 2022-04-10 00:25 | XMS_ITS | Encounter Summary ---
:1950 [place] [address] Care Team Providers Name Role Phone Chiqui Jeff MD Primary Care Provider Reason for Referral Consultation (Routine) - Closed Specialty Diagnoses / Procedures Referred By Contact Refer red To Contact Neurology Diagnoses Chronic migraine without aura, with intractable migraine, so stated, with status migrainosus Moody Perez MD Feldman, Mary S, [facility] [place] [address] [place] [address] Fax: Referral ID Status Reason Start Date Expiration Date Visits V isits Requested Authorized [id number] Closed Consult, 07/17/2020 07/17/2021 1 1 Test & Treat Encounter Details Date Type Department Care Team Description 07/17/2020 Office Visit Neurology at [facility] [address] migraine [address] MD without aura, with [address] [facility] intractable migraine, [place], [place] Dr moreno stated, with [place] [id number] [place] [address] migrainosus [phone] Social History Tobacco Use Types Packs/Day Years Used Date Never Smoker Smokeless Tobacco: Never Used Alcohol Use Standard Drinks/Week Comments Not Currently 0 (1 standard drink = 0.6 oz pure alcoho l) Sex Assigned at Date Recorded Not on file documented as of this encounter Last Filed Vital Signs Vital Sign Reading Time Taken Comments Blood Pressure 186/77 07/17/2020 2:43 PM EST Pulse - - Temperature - - Respiratory Rate - - Oxygen Saturation - - Inhaled Oxygen Concentration - - Weight 72.6 kg (160 lb) 07/17/2020 2:43 PM EST Height 162.6 cm (5' 4) 07/17/2020 2:43 PM EST Body Mass Index 27.46 07/17/2020 2:43 PM EST documented in this encounter Progress Notes Moody Perez MD - 07/17/2020 2:30 PM EST Neurology Headache Clinic Follow-up Visit 07-17-20 Last Appointment: 12-14-19 Pain today: 8 Interval Headache Hx: Pt with macular degeneration, DM Type 2, a + RF, htn, hypothyroidism, PUD, osteopenia, and a chronicpain syndrome (head, chest, joints). In November, I recommended a check of an ESR (13) and CRP (0.19), diagnosed continuous chronic migraine, and started her on erenumab, first dose January 22, 2020. She went from / DOUGLAS days per month to DOUGLAS days per month on the erenumab, and has clear wearing off a week before, extending 3 d after injection. She has Medicare and [place] [employer] insurance. Patient Reported: MIDAS Responses 07/17/2020 Days missed school/work 0 Days productivity at work/school reduced 0 Days did not do household work 20 Days productivity related to housework reduced 20 Days missed family, social or leisure activities 0 Days had headache 60 Pain scale 8 MIDAS Score 40 (MIDAS grade IV, severe disability) MIDAS Adjusted Score - Prior Treatments: TCAs 1. Amitriptyline SNRIs 2. Duloxetine AEDs 3. TPM 4. GBP Beta blockers 5. Propranolol PLACIDO 6. Enalapril ARBs 7. Losartan CCBs 8. Verapamil Neuroleptics 9. Promethazine Muscle relaxants 10. Methocarbamol 11. Cyclobenzaprine Triptans 12. Temi 13. Zolmi 14. Riza NSAIDs 15. ASA Supplements 16. B2 Narcotics 17. Tramadol MABs 18. Erenumab New Health Issues: She did have several years of CO exposure and she has developed tremor and micrographia New Family History: no Past Medical History: Diagnosis Date ??? Chronic pain syndrome head, chest, joints ??? DM (diabetes mellitus), type 2 ??? HTN (hypertension) ??? Hypothyroidism ??? Osteopenia ??? PUD (peptic ulcer disease) ??? Rheumatoid factor positive Past Surgical History: Procedure Laterality Date ??? CHOLECYSTECTOMY ??? KNEE SURGERY multiple ??? BRIAN AND BSO Studies to Review: see HPI Outpatient Medications Marked as Taking for the 07/17/20 encounter (Office Visit) with Moody Perez MD Medication Sig Dispense Refill ??? erenumab-aooe (Aimovig Autoinjector) 140 mg/mL Auto-Injector Inject 140 mg subcutaneously every 28 days. 1 Syringe 11 ??? insulin detemir U-100 (LEVEMIR) Insulin Pen Inject 75 Units subcutaneously nightly. ??? nystatin (MYCOSTATIN) Cream Apply 1 Application topically as needed. ??? fluconazole (Diflucan) 150 mg Tablet Take 150 mg by mouth as needed. ??? omeprazole magnesium (PRILOSEC ORAL) Take 1 tablet by mouth daily. ??? metFORMIN (GLUCOPHAGE) 1,000 mg tablet Allergies Allergen Reactions ??? Duloxetine Hcl CIS - stomach pain, DOUGLAS ??? Gabapentin CIS - sleepiness ??? Sulfamethoxazole-Trimethoprim CIS - stomach pain ??? Topiramate CIS - dizziness, disorientation REVIEW OF SYSTEMS: See HPI Physical Examination: VS BP 186/77 Ht 162.6 cm (5' 4) Wt 72.6 kg (160 lb) BMI 27.46 kg/m?? General: Normal skin, musculoskeletal Neurological: Normal mentation, coordination, gait Motor: She has a resting pill rolling bilateral UE tremor which looks Parkinsonian Impression & plan: 1. 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 I will refer to our movement disorder group. AIMOVIG Follow Up [facility] Headache Clinic Patient name: Ebony Villanueva Date of : 1950 Patient Reported: MIDAS Responses 07/17/2020 Days missed school/work 0 Days productivity at work/school reduced 0 Days did not do household work 20 Days productivity related to housework reduced 20 Days missed family, social or leisure activities 0 Days had headache 60 Pain scale 8 MIDAS Score 40 (MIDAS grade IV, severe disability) MIDAS Adjusted Score - Date you began using Aimovi--20 How many months have you administered Aimovig 140 m How many migraine/headache days per month did you have BEFORE starting Aimovi How many migraine/headache days per month have you had SINCE starting Aimovi Have you noticed that your headaches/migraines are not as severe since starting Aimovig: yes Have you used less of your abortive medications (triptans, NSAIDs, etc) since starting Aimovig: yes Are your abortive medications working better to abort migraines since starting Aimovig: yes Do you think the Aimovig is helping: yes Side effects: no Is the medication wearing off ? Yes If it is, when? The week before injection and for 3 days after injection Follow-up: 4 mos I spent 40 minutes in this visit, with at least 30 devoted to patient counseling. Moody Perez MD documented in this encounter Plan of Treatment Upcoming Encounters Date Type Specialty Care Team Description 06/23/2022 Office Visit Neurology Deacon Rose, SALES SUPPORT MANAGER [facility] [address] [place], [place] [address] (Wo rk) 09/28/2022 Office Visit Neurology Charisse Webb SALES SUPPORT MANAGER [facility] [address] [place] [address] (Wo rk) Scheduled Referrals Name Type Priority Associated Diagnoses Order S chedule Referral to Outpatient Referral Routine Chronic migraine Orde red: Neurology without aura, with 0 intractable migraine, so stated, with status migrainosus documented as of this encounter Visit Diagnoses Diagnosis Chronic migraine without aura, with intr actable migraine, so stated, with status migrainosus documented in this encounter Care Teams Academic Affairs Coordinator Relationship Specialty Start Date End Date Chiqui Jeff MD PCP - General 07/15/10 [address] [place] [address] documented as of this encounter
--- OUTSIDE RECORDS SUMMARY | 2022-04-10 00:25 | XMS_ITS | Encounter Summary ---
:1950 Author Organization [facility] [address] Care Team Providers Name Role Phone Chiqui Jeff MD Primary Care Provider Reason for Visit Consultation (Routine) - Specialty Diagnoses / Procedures Referred By Contact Refer red To Contact Neurology Diagnoses Migraine, unspecified, not intractable, without status migrainosus Chronic tension-type headache, not intractable MIGRAINE HEADACHE, TENSION HEADACHES, CHRONIC Chiqui Jeff MD [facility] Neurology 3c [address] [facility] 1 [place] [id number] Referral ID Status Reason Start Date Expiration Date Visits V isits Requested Authorized [id number] Consult, Test 09/27/2019 12/26/2019 [facility] PCP Updated and/or Approved Encounter Details Date Type Department Care Team Description 12/13/2019 TH Visit Neurology at [place] [facility] ic migraine (TeleHealth) Deion Quiroga MD without aura, with [address] [facility] Medical intractable migraine, [place], [place] [address] [place], [place] [address] [place] [address] status migrainosus [phone] Social History Tobacco Use Types Packs/Day Years Used Date Never Assessed Sex Assigned at Date Recorded Not on file documented as of this encounter Progress Notes Moody Perez MD - 12/13/2019 2:30 PM EDT Neurology Headache Center Telephone New Consultation 12-14-19 [facility] Head[facility] Referring Provider: Chiqui Jeff MD This is a 69 year old??R-handed woman referred by Chiqui Jeff MD, to whom I will send the consult upon completion. CC:?? headache HPI: I am at least the 5th Neurologist to evaluate this pt. I reviewed 13 pages of outside records on her, and she has macular degeneration, DM Type 2, a + RF, htn, hypothyroidism, PUD, osteopenia, and a chronic pain syndrome (head, chest, joints). +FHx. No hx of motion sickness. Onset of DOUGLAS in childhood, gradual transformation and continuous since at least 1999, so 20 years. The HAs were associated with rare typical visual aura, wavy lines or round circles lasting 5 minutes 5/7 days per week. The HAs are global, L<R, in the ear and neck, with throbbing, photophonophobia, and N. 1/3 of days are mild, 1/3 moderate, 1/3 severe. She has radiation to the R scapula. She has had new sx of R jaw pain & more frequent visual sx. No true jaw claudication. She has Medicare with [employer] secondary insurance. 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 MONOCLONAL ANTIBODY Note [facility] Patient name: Ebony Villanueva Date of : 1950 Patient Dx: [x] G43.7 chronic migraine without aura [] G43.9 episodic migraine without aura [] G43.0 migraine with aura Medication being requested: [] Aimovig [] AJOVY [] Emgality Preferred Pharmacy: [facility], [facility] Ebony Villanueva has had a lack of success with each of the three most effective anti-migraine prevention categories: antidepressants, anti-epilepsy drugs, and antihypertensives. The FDA has approved the use of Aimovig, Ajovy, Emgality for the prevention of Chronic and Episodic Migraine. Does the patient have a latex allergy? No Does the patient have a history of severe constipation? No Allergies Allergen Reactions ??? Duloxetine Hcl CIS - stomach pain, DOUGLAS ??? Gabapentin CIS - sleepiness ??? Sulfamethoxazole-Trimethoprim CIS - stomach pain ??? Topiramate CIS - dizziness, disorientation Patient has tried and failed: Medications Tried ([x] checked have been tried in the past) Anti-seizure: [] Acetazolamide (Diamox) [] Carbamazepine (Tegretol) [] Clonazepam [] Gabapentin (Neurontin) [] Lamotragine (Lamictal) [] Levetiracetam (Keppra) [] Oxcarbazepine (Trileptal) [] Phenobarbital [] Phenytoin (Dilantin) [] Pregabalin (Lyrica) [] Primidone [] Sodium Valproate (Depakote) [x] Topiramate (Topamax) [] Zonisamide (Zonegran) Anti-Depressants: SNRI: [] Desvenlafaxine (Pristiq/Khedezla) [x] Duloxetine (Cymbalta) [] Levomilnacipran (Fetzima) [] Milnacipran (Savella) [] Venlafaxine (Effexor) TCA: [x] Amitriptyline (Elavil) [] Amoxapine [] Clomipramine (Anafranil) [] Desipramine (Norpramin) [] Doxepin (Sinequan) [] Imipramine (Tofranil) [] Maprotiline (Ludiomil) [] Nortriptiline (Pamelor) [] Protriptyline (Vivactil) [] Trimipramine (Surmontil) Anti-Hypertensives: PLACIDO Inhibitors: [] Benazepril (Lotensin) [] Captopril [x] Enalapril (Vasotec) [] Fosinopril [] Lisinopril (Prinivil) [] Moexipril [] Perindopril (Aceon) [] Quinapril (Accupril) [] Ramipril (Altace) [] Trandolapril (Mavik) Angiotensin II Receptor Blockers: [] Azilsartan (Edarbi) [] Candesartan (Atacand) [] Eprosartan [] Irbesartan (Avapro) [x] Losartan (Cozaar) [] Olmesartan (Benicar) [] Telmisartan (Misardis) [] Valsartan (Diovan) Beta Blockers [] Acebutolol (Sectral) [] Atenolol (Tenormin) [] Bisoprolol (Zebeta) [] Metoprolol (Lopressor) [] Nadolol (Cogard) [] Nebivolol (Bystolic) [x] Propranolol (Inderal) [] Timolol Calcium Channel Blockers: [] Amlodipine (Norvasc) [] Bepridil (Vascor) [] Diltiazem (Cardiazem) [] Felodipine (Plendil) [] Nicardipine (Cardene) [] Nifedipine (Procardia) [] Nisoldipine (Sular) [x] Verapamil Monoclonal Antibodies: [x] Aimovig [] Ajovy [] Emgality Triptans oral: [] Almotriptan (Axert) [] Eletriptan (Relpax) [] Frovatriptan (Frova) [] Naratriptan (Amerge) [x] Rizatriptan (Maxalt) [x] Sumatriptan (Imitrex) [] Sumatriptan/Naproxen (Treximet) [x] Zolmitriptan (Zomig) For CHRONIC Migraine Patients: Does the patient have medication overuse headache? [] YES [x] NO *If YES, the treatment plan will include tapering off the offending medications Does the patient have ? 15 DOUGLAS days per month, of which at least 8 must be migraine days? [x] YES [] NO How many migraine days per month is patient experiencing? 31 How long do the migraines last? 15/03 How long has the patient had this diagnosis? 60 years Has patient tried and failed Botox? [] YES [x] NO Will patient be receiving both Botox and Aimovig simultaneously? [] YES [x] NO Will patient be receiving both Aimovig, AJOVY, & Emgality and another monoclonal antibody? [] YES [x] NO Prior Treatments: TCAs 1. Amitriptyline SNRIs 2. Duloxetine AEDs 3. TPM 4. GBP Beta blockers 5. Propranolol PLACIDO 6. Enalapril ARBs 7. Losartan CCBs 8. Verapamil Neuroleptics 9. Promethazine Muscle relaxants 10. Methocarbamol 11. Cyclobenzaprine Triptans 12. Temi 13. Zolmi 14. Riza NSAIDs 15. ASA Supplements 16. B2 Narcotics 17. Tramadol Current Outpatient Medications on File Prior to Visit Medication Sig Dispense Refill ??? insulin detemir U-100 (LEVEMIR) Insulin Pen Inject 75 Units subcutaneously nightly. ??? nystatin (MYCOSTATIN) Cream Apply 1 Application topically as needed. ??? fluconazole (Diflucan) 150 mg Tablet Take 150 mg by mouth as needed. ??? levothyroxine (Synthroid) 25 mcg Tablet Take 25 mcg by mouth daily. ??? omeprazole magnesium (PRILOSEC ORAL) Take 1 tablet by mouth daily. ??? vit C/E/Zn/coppr/lutein/zeaxan (PRESERVISION AREDS-2 ORAL) Take 1 capsule by mouth daily. ??? Bacillus coagulans (DIGESTIVE ADVANTAGE ORAL) Take 1 capsule by mouth daily. ??? CIS Free Text Med - Vytone 1 Appl(s), Top, Twice daily prn (Patient not taking: No sig reported) ??? metFORMIN (GLUCOPHAGE) 1,000 mg tablet ??? insulin glargine (LANTUS) 100 unit/mL injection (Patient not taking: No sig reported) ??? traMADol (ULTRAM) 50 mg tablet 50 M-2 Tablet(s), PO, Three times daily prn pain (Patient nottaking: No sig reported) No current facility-administered medications on file prior to visit. Allergies Allergen Reactions ??? Duloxetine Hcl CIS - stomach pain, DOUGLAS ??? Gabapentin CIS - sleepiness ??? Sulfamethoxazole-Trimethoprim CIS - stomach pain ??? Topiramate CIS - dizziness, disorientation Previous testing: MRI wo 11/23/18: UBOs c/w small vessel disease Family History: Migraine or other headaches in the family:?? mom, 2 daughters and son with migraine Past Medical History: Diagnosis Date ??? Chronic pain syndrome head, chest, joints ??? DM (diabetes mellitus), type 2 ??? HTN (hypertension) ??? Hypothyroidism ??? Osteopenia ??? PUD (peptic ulcer disease) ??? Rheumatoid factor positive Past Surgical History: Procedure Laterality Date ??? CHOLECYSTECTOMY ??? KNEE SURGERY multiple ??? BRIAN AND BSO Social History Socioeconomic History ??? Marital status: Spouse name: Not on file ??? Number of children: Not on file ??? Years of education: Not on file ??? Highest education level: Not on file Occupational History ??? Not on file Social Needs ??? Financial resource strain: Not on file ??? Food insecurity Worry: Not on file Inability: Not on file ??? Transportation needs Medical: Not on file Non-medical: Not on file Tobacco Use ??? Smoking status: Not on file Substance and Sexual Activity ??? Alcohol use: Not on file ??? Drug use: Not on file ??? Sexual activity: Not on file Lifestyle ??? Physical activity Days per week: Not on file Minutes per session: Not on file ??? Stress: Not on file Relationships ??? Social connections Talks on phone: Not on file Gets together: Not on file Attends tenriism service: Not on file Active member of club or organization: Not on file Attends meetings of clubs or organizations: Not on file Relationship status: Not on file ??? Intimate partner violence Fear of current or ex partner: Not on file Emotionally abused: Not on file Physically abused: Not on file Forced sexual activity: Not on file Other Topics Concern ??? Not on file Social History Narrative ??? Not on file ROS: HEENT: headache CV: high blood pressure GI: ulcers : negative Endocrine: diabetes Musculoskeletal: Fibro Impression & plan: ?? 1. Chronic migraine without aura, with intractable migraine, so stated, with status migrainosus The one warning here is the new onset of R sided jaw pain and worsened frequency of visual sx, so I have recommended that the patient ask Dr. Jeff to order an ESR and CRP for ?giant cell arteritis. If those are nl, this remains chronic migraine, the same as it has been for at least 20 years. This patient meets the FDA criteria for Chronic Migraine, with headache at least 15 days per month, at least 4 hours per day (hers are continuous). She has unsuccessfully tried at least 17 medications,and has had lack of success with each of the big three anti-migraine prevention categories, antidepressants, anti-epilepsy drugs, and antihypertensives. I will prescribe erenumab for her. I spent 80 minutes in this visit with 60 minutes devoted to telephone patient counseling, in addition to prep time. Ebony Villanueva gave verbal consent over the phone for this telephone visit. The patient understands that this visit will be billed to their insurance, similar to a clinic visit. Thank you, Dr. Jeff, for this consult. Moody Perez MD documented in this encounter Plan of Treatment Upcoming Encounters Date Type Specialty Care Team Description 06/23/2022 Office Visit Neurology Deacon Rose L, TUMBLER MACHINE OPERATOR [facility] [address] [place], [place] [address] (Wo rk) 09/28/2022 Office Visit Neurology Charisse Webb, [facility] [address] [place], [place] [address] (Wo rk) documented as of this encounter Visit Diagnoses Diagnosis Chronic migraine without aura, with intr actable migraine, so stated, with status migrainosus documented in this encounter Care Teams Clerical Proofreader Relationship Specialty Start Date End Date Chiqui Jeff MD PCP - General 07/15/10 [address] [place] [address] documented as of this encounter
--- OUTSIDE RECORDS SUMMARY | 2022-04-10 00:25 | XMS_ITS | Encounter Summary ---
:1950 [place] [address] Care Team Providers Name Role Phone Chiqui Jeff MD Primary Care Provider Reason for Visit Reason Comments TeleHealth Encounter Details Date Type Department Care Team Description 12/12/2019 Telephone Neurology at [facility] Moody Perez MD TeleHealth [address] [place] [address] [place] [address] [phone] (Wo rk) Social History Tobacco Use Types Packs/Day Years Used Date Never Assessed Sex Assigned at Date Recorded Not on file documented as of this encounter Miscellaneous Notes Telephone Encounter - Marcella Mckeon CCMA - 12/12/2019 9:57 AM EDT Spoke with patient to review medications and allergies prior to upcoming tele- appointment scheduledwith Neurology provider. documented in this encounter Plan of Treatment Upcoming Encounters Date Type Specialty Care Team Description 06/23/2022 Office Visit Neurology Deacon Rose, DIRECTOR OF PATIENT SAFETY [facility] ER [address] [place] [address] (Wo rk) 09/28/2022 Office Visit Neurology Charisse Webb APRN [facility] er [address] [place] [address] (Wo rk) documented as of this encounter Visit Diagnoses Not on filedocumented in this encounter Care Teams Nissan Sales Consultant Relationship Specialty Start Date End Date Chiqui Jeff MD PCP - General 07/15/[address] [facility] 1 [place] [address] documented as of this encounter
--- OUTSIDE RECORDS SUMMARY | 2022-04-10 00:25 | XMS_ITS | Encounter Summary ---
:1950 Author Organization [facility] [place] [address] Care Team Providers Name Role Phone Chiqui Jeff MD Primary Care Provider Reason for Visit Reason Comments TeleHealth Encounter Details Date Type Department Care Team Description 12/06/2019 Telephone Neurology at [facility] Moody Perez MD TeleHealth [address] [facility] [place] [address] [place] [address] [phone] (Wo rk) Social History Tobacco Use Types Packs/Day Years Used Date Never Assessed Sex Assigned at Date Recorded Not on file documented as of this encounter Miscellaneous Notes Telephone Encounter - Marcella Mckeon CCMA - 12/06/2019 12:35 PM EDT Spoke with patient to review medications and allergies prior to upcoming tele- appointment scheduledwith Neurology provider. documented in this encounter Plan of Treatment Upcoming Encounters Date Type Specialty Care Team Description 06/23/2022 Office Visit Neurology Deacon Rose, MULTIMEDIA PROJECT MANAGER [facility] ER [address] [place] [address] (Wo rk) 09/28/2022 Office Visit Neurology Charisse Webb APRN [facility] er [address] [place] [address] (Wo rk) documented as of this encounter Visit Diagnoses Not on filedocumented in this encounter Care Teams In Flight Technician Relationship Specialty Start Date End Date Chiqui Jeff MD PCP - General 07/15/[address] [facility] 1 [place] [address] documented as of this encounter
--- OUTSIDE RECORDS SUMMARY | 2022-04-10 00:25 | XMS_ITS | Encounter Summary ---
:1950 [place] [address] Care Team Providers Name Role Phone Chiqui Jeff MD Primary Care Provider Reason for Visit Reason Onset Date Comments Letter/Form 10/15/2020 Encounter Details Date Type Department Care Team Description 10/15/[address] [facility] Moody Perez MD Letter/Form [address] [facility] [place] [address] [place] [address] [phone] (Wo rk) Social History Tobacco Use Types Packs/Day Years Used Date Never Smoker Smokeless Tobacco: Never Used Alcohol Use Standard Drinks/Week Comments Not Currently 0 (1 standard drink = 0.6 oz pure alcoho l) Sex Assigned at Date Recorded Not on file documented as of this encounter Miscellaneous Notes Telephone Encounter - Dina Naranjo RN - 10/15/2020 2:29 PM EST Call made to the patient. Informed the patient the completed patient assistance program for Ubrelvy was faxed on 09/25. Recommended the patient contact [employer], phone number provided. Understanding and agreement verbalized. Telephone Encounter - Juan Bravo - 10/15/2020 1:58 PM EST Call Center / [place] Message - General Issue Call Provider patient sees in Clinic: Moody Perez MD Caller and relationship (if other than patient-full name): Ebony Villanueva - patient Call back number: [phone] (home) Ok to leave a message: yes Reason for call: Patient called to check on status of erenumab-aooe (Aimovig Autoinjector) assistance program application. Patient aware application sent on 09/25/20. She has has not yet been contacted. Patient inquiring when she should expect to be notified if approved. Please advise. Disposition of Call (choose one and remove others): ??? Red Arrow Message Reason red arrow Message: n/a ??? Routine Message sent to the Nurse: yes ??? Routine message sent to Fluid Dynamicist: n/a documented in this encounter Plan of Treatment Upcoming Encounters Date Type Specialty Care Team Description 06/23/2022 Office Visit Neurology Deacon Rose L, AFFILIATE MANAGER [facility] ER [address] [place], [place] [address] (Wo rk) 09/28/2022 Office Visit Neurology Charisse Webb AFFILIATE MANAGER [facility] er [address] [place], [place] [address] (Wo rk) documented as of this encounter Visit Diagnoses Not on filedocumented in this encounter Care Teams Manager Client Support Relationship Specialty Start Date End Date Chiqui Jeff MD PCP - General 07/15/10 [address] [place] [address] documented as of this encounter
--- OUTSIDE RECORDS SUMMARY | 2022-04-10 00:25 | XMS_ITS | Encounter Summary ---
:1950 Author Organization [place] [address] Care Team Providers Name Role Phone Chiqui Jeff MD Primary Care Provider Reason for Visit Reason Comments Prior Authorization Encounter Details Date Type Department Care Team Description 12/14/2019 Specialty Pharmacy Pharmacy at [facility] Sonja [place]ett [place] [id number] Social History Tobacco Use Types Packs/Day Years Used Date Never Assessed Sex Assigned at Date Recorded Not on file documented as of this encounter Progress Notes Sonja Plunkett A - 12/14/2019 9:57 AM EDT [facility], Medication Prior Authorization Patient: Ebony Villanueva Patient : 1950 Patient Address: [address] [place] [phone] (home) Medication Name: AIMOVIG AUTOINJECTOR 140 MG/ML SUBCUTANEOUS AUTO-INJECTOR Medication ID: [id number] Patient Location: [facility] NEUROLOGY 3C Subscriber Insurance: [employer] Medicare Fax: No value filed. Physician: EASTON FERRER Sent Via: REPLACED BY [facility] Temple: [id number] Ref/Case/PA#: No value filed. Medication Strength Frequency Requested: Inject the contents of one pen (140mg) subcutaeously once every 28 days. Qty/Day Supply: 09/19 New Start: New to Therapy Diagnosis & ICD-10 Code: G43.711 Patient Notified: Yes Dina Natarajan - 12/14/2019 9:57 AM EDT [facility], Prior Authorization Approval Medication Name: Aimovig FILL[facility] AT [facility]? yes APPROVAL DATES: 12-13-2019 to 03-13-2020 SPECIFIC INS REQUIREMENT: NA CASE/REFERENCE # NA APPROVAL NOTIFICATION RECEIVED VIA: ONBASE COPAY: $524.91 COPAY ASSISTANCE NEEDED?: Patient does not qualify for the Aimovig copay card due to insurance beingMEDD. Will route encounter to clinic for MAPS assistance. Patient stated she can not afford the copay cost. NOTES: Patient is approved for Aimovig from 12-13-2019 to 03-13-2020. Rasheeda Neal RN - 12/14/2019 9:57 AM EDT Mailed [employer] application to patient's home address documented in this encounter Plan of Treatment Upcoming Encounters Date Type Specialty Care Team Description 06/23/2022 Office Visit Neurology Deacon Rose CHIEF OPTOMETRY SERVICE [facility] ER [address], [place] [address] (Wo ju) 09/28/2022 Office Visit Neurology Charisse Webb APRN [facility] er [address] [place] [address] (Wilberto dodd) documented as of this encounter Visit Diagnoses Not on filedocumented in this encounter Care Teams Machine Clothing Worker Relationship Specialty Start Date End Date Chiqui Jeff MD PCP - General 07/15/10 [address] [place] [address] documented as of this encounter
--- OUTSIDE RECORDS SUMMARY | 2022-04-10 00:25 | XMS_ITS | Encounter Summary ---
:1950 [place] [address] Care Team Providers Name Role Phone Chiqui Jeff MD Primary Care Provider Reason for Visit Reason Onset Date Comments Prior Authorization 06/17/2021 Aimovig renewal Encounter Details Date Type Department Care Team Description 06/17/[facility] Mariam Ibanez ior Authorization Deion MENJIVAR (Aimovig renewal) [address] [place] [address] [place], [place] [address] Social History Tobacco Use Types Packs/Day Years Used Date Never Smoker Smokeless Tobacco: Never Used Alcohol Use Standard Drinks/Week Comments Not Currently 0 (1 standard drink = 0.6 oz pure alcoho l) Sex Assigned at Date Recorded Not on file documented as of this encounter Miscellaneous Notes Telephone Encounter - Rasheeda Neal RN - 06/24/2021 6:04 PM EDT Images from the original note were not included. Telephone Encounter - Rasheeda Neal RN - 06/23/2021 4:08 PM EDT Message from Reji MARTINEZ Case: [id number], Status: Approved, Coverage Starts on: 08/23/2020 12:00:00 AM, Coverage Ends on: 08/22/2022 12:00:00 AM. Questions? Contact . Telephone Encounter - Rasheeda Neal RN - 06/23/2021 3:41 PM EDT Ebony Villanueva (Temple: [id number]) Aimovig 140MG/ML auto-injectors Form: Assisteraa Electronic PA Form Created: 5 minutes ago Sent to Plan: 4 minutes ago Plan Response: 3 minutes ago Submit Clinical Questions: less than a minute ago Determination: Wait for Determination Please wait for [employer] 2017 to return a determination. documented in this encounter Plan of Treatment Upcoming Encounters Date Type Specialty Care Team Description 06/23/2022 Office Visit Neurology Deacon Rose, HEAVY LINE TECHNICIAN [facility] ER [address], [place] [address] (Wo rk) 09/28/2022 Office Visit Neurology Charisse Webb APRN [facility] er [place], [place] [address] (Wo rk) documented as of this encounter Visit Diagnoses Not on filedocumented in this encounter Care Teams Front Office Director Relationship Specialty Start Date End Date Chiqui Jeff MD PCP - General 07/15/10 [address] [place] [address] documented as of this encounter
--- OUTSIDE RECORDS SUMMARY | 2022-04-10 00:25 | XMS_ITS | Encounter Summary ---
:1950 Author Organization [facility] Address [facility] [place] [address] Care Team Providers Name Role Phone Chiqui Jeff MD Primary Care Provider Encounter Details Date Type Department Care Team Description 11/25/2020 Office Visit Neurology at [facility] [place] [address] migraine [address] without aura, with [address] [facility] intractable migraine, [place], [place] Dr josh ceja, with status [address] [place] [address] migrainosus [phone] Social History Tobacco Use Types Packs/Day Years Used Date Never Smoker Smokeless Tobacco: Never Used Alcohol Use Standard Drinks/Week Comments Not Currently 0 (1 standard drink = 0.6 oz pure alcoho l) Sex Assigned at Date Recorded Not on file documented as of this encounter Last Filed Vital Signs Vital Sign Reading Time Taken Comments Blood Pressure 158/68 11/25/2020 11:43 AM EDT Pulse 84 11/25/2020 11:43 AM EDT Temperature 36.1 ??C (97 ??F) 11/25/2020 11:43 AM EDT Respiratory Rate - - Oxygen Saturation - - Inhaled Oxygen Concentration - - Weight 72.6 kg (160 lb) 11/25/2020 11:43 AM EDT Height 162.6 cm (5' 4) 11/25/2020 11:43 AM EDT reporte d Body Mass Index 27.46 11/25/2020 11:43 AM EDT documented in this encounter Progress Notes Moody Perez MD - 11/25/2020 11:30 AM EDT Neurology Headache Clinic Follow-up Visit 11-25-20 Last Appointment: 07-17-20 Pain today: 8 Interval Headache Hx: Pt with continuous chronic migraine on erenumab, first dose 01-22-20. In June, I recommended a consult with our movement disorder group because of tremor, and she is scheduled with Yeny Ojeda for 12/30/20. We have been trying to get her Ubrelvy from [employer]. She is getting erenumab through the [employer]. Patient Reported: MIDAS Responses 11/25/2020 Days missed school/work 5 Days productivity at work/school reduced 15 Days did not do household work 5 Days productivity related to housework reduced 5 Days missed family, social or leisure activities 0 Days had headache 15 Pain scale 8 MIDAS Score 30 (MIDAS grade IV, severe disability) MIDAS Adjusted Score 30 She has Medicare + [place] secondary. ?? Prior Treatments: TCAs ?1. Amitriptyline SNRIs ?2. Duloxetine AEDs ?3. TPM ?4. GBP Beta blockers ?5. Propranolol PLACIDO ?6. Enalapril ARBs ?7. Losartan CCBs ?8. Verapamil Neuroleptics ?9. Promethazine Muscle relaxants ?10. Methocarbamol ?11. Cyclobenzaprine Triptans ?12. Temi ?13. Zolmi ?14. Riza NSAIDs ?15. ASA Supplements ?16. B2 Narcotics ?17. Tramadol MABs 18. Erenumab ?? New Health Issues: See HPI New Family History: no Past Medical History: Diagnosis Date ??? Chronic migraine without aura, with intractable migraine, so stated, with status migrainosus ??? Chronic pain syndrome head, chest, joints ??? DM (diabetes mellitus), type 2 ??? HTN (hypertension) ??? Hypothyroidism ??? Osteopenia ??? PUD (peptic ulcer disease) ??? Rheumatoid factor positive Past Surgical History: Procedure Laterality Date ??? CHOLECYSTECTOMY ??? KNEE SURGERY multiple ??? BRIAN AND BSO Studies to Review: no Patient Reported: MIDAS Responses 11/25/2020 Days missed school/work 5 Days productivity at work/school reduced 15 Days did not do household work 5 Days productivity related to housework reduced 5 Days missed family, social or leisure activities 0 Days had headache 15 Pain scale 8 MIDAS Score 30 (MIDAS grade IV, severe disability) MIDAS Adjusted Score - Allergies Allergen Reactions ??? Duloxetine Hcl CIS - stomach pain, DOUGLAS ??? Gabapentin CIS - sleepiness ??? Sulfamethoxazole-Trimethoprim CIS - stomach pain ??? Topiramate CIS - dizziness, disorientation REVIEW OF SYSTEMS: See HPI Physical Examination: VS BP 158/68 Pulse 84 Temp 36.1 ??C (97 ??F) Ht 162.6 cm (5' 4) Comment: reported Wt 72.6 kg (160 lb) BMI 27.46 kg/m?? General: Normal skin, Neurological: Slight hypophonia Mask like facies Decreased arm swing 6 hz finger pill rolling tremor Impression: 1. Chronic migraine without aura, with intractable migraine, so stated, with status migrainosus I told Ms Villanueva that I would call [employer] if she has not heard favorably by 12/05/20. She will let me know. She is to see Dr. Ojeda for the likely dx of PD. I did not discuss this with the patient other than to note the tremor. AIMOVIG Follow Up [facility] Headache Clinic Patient name: Ebony Villanueva Date of : 1950 Patient Reported: MIDAS Responses 11/25/2020 Days missed school/work 5 Days productivity at work/school reduced 15 Days did not do household work 5 Days productivity related to housework reduced 5 Days missed family, social or leisure activities 0 Days had headache 14 Pain scale 8 MIDAS Score 30 (MIDAS grade IV, severe disability) MIDAS Adjusted Score - Date you began using Aimovi How many months have you administered Aimovig 140 m How many migraine/headache days per month did you have BEFORE starting Aimovi How many migraine/headache days per month have you had SINCE starting Aimovi Have you noticed that your headaches/migraines are not as severe since starting Aimovig: yes Have you used less of your abortive medications (triptans, NSAIDs, etc) since starting Aimovig: Yes Are your abortive medications working better to abort migraines since starting Aimovig: APAP Do you think the Aimovig is helping: Yes Side effects: no Is the medication wearing off ? No Follow-up: 6 mos I spent 40 minutes in this visit, with at least 30 devoted to patient counseling. [place] Perez MD documented in this encounter Plan of Treatment Upcoming Encounters Date Type Specialty Care Team Description 06/23/2022 Office Visit Neurology Deacon Rose ie L, IT INSTRUCTOR [facility] NEUROLOGY [place] [address] (Wo rk) 09/28/2022 Office Visit Neurology Charisse Webb, IT INSTRUCTOR [facility] [address] [place], [place] [address] (Wo rk) documented as of this encounter Visit Diagnoses Diagnosis Chronic migraine without aura, with intr actable migraine, so stated, with status migrainosus documented in this encounter Care Teams Displayer Relationship Specialty Start Date End Date Chiqui Jeff MD PCP - General 07/15/10 [address] [place] [address] documented as of this encounter
--- OUTSIDE RECORDS SUMMARY | 2022-04-10 00:25 | XMS_ITS | Encounter Summary ---
:1950 Author Organization [place] [address] Care Team Providers Name Role Phone Chiqui Jeff MD Primary Care Provider Reason for Visit Consultation (Routine) - Specialty Diagnoses / Procedures Referred By Contact Refer red To Contact Neurology Diagnoses Migraine, unspecified, not intractable, without status migrainosus Chronic tension-type headache, not intractable MIGRAINE HEADACHE, TENSION HEADACHES, CHRONIC Chiqui Jeff MD [facility] Neurology [address] [facility] [address] [place] [id number] Referral ID Status Reason Start Date Expiration Date Visits V isits Requested Authorized [id number] Consult, Test 09/27/2019 12/26/2019 [facility] PCP Updated and/or Approved Encounter Details Date Type Department Care Team Description 12/07/2019 TH Visit Neurology at [place] ntment canceled (TeleHealth) Deion Quiroga MD by [address] [address] [place] [address] [phone] Social History Tobacco Use Types Packs/Day Years Used Date Never Assessed Sex Assigned at Date Recorded Not on file documented as of this encounter Progress Notes [facility] Perez MD - 12/07/2019 3:30 PM EDT cancelled documented in this encounter Plan of Treatment Upcoming Encounters Date Type Specialty Care Team Description 06/23/2022 Office Visit Neurology Deacon Rose, CROWN BUFFER [facility] [address] [place], [place] [address] (Wo rk) 09/28/2022 Office Visit Neurology Charisse Webb, CROWN BUFFER [facility] er [place], [place] [address] (Wo rk) documented as of this encounter Visit Diagnoses Diagnosis Appointment canceled by hospital Procedure not carried out for other reas ons documented in this encounter Care Teams Malt House Kiln Operator Relationship Specialty Start Date End Date Chiqui Jeff MD PCP - General 07/15/10 [address] [place] [address] documented as of this encounter
--- OUTSIDE RECORDS SUMMARY | 2022-04-10 00:25 | XMS_ITS | Encounter Summary ---
:1950 [place] [address] Care Team Providers Name Role Phone Chiqui Jeff MD Primary Care Provider Reason for Visit Reason Onset Date Comments Other 09/12/2020 Encounter Details Date Type Department Care Team Description 09/12/2020 Telephone Neurology at [facility] Perez MD Other [address] [facility] [place] [address] [place] [address] [phone] (Wo rk) Social History Tobacco Use Types Packs/Day Years Used Date Never Smoker Smokeless Tobacco: Never Used Alcohol Use Standard Drinks/Week Comments Not Currently 0 (1 standard drink = 0.6 oz pure alcoho l) Sex Assigned at Date Recorded Not on file documented as of this encounter Miscellaneous Notes Telephone Encounter - Dina Naranjo RN - 09/25/2020 10:15 AM EST Completed [employer] patient assistance program application faxed to AGELON ?. Telephone Encounter - Dina Naranjo RN - 09/12/2020 3:40 PM EST Application mailed to the patient. Telephone Encounter - Gale Lechuga - 09/12/2020 2:56 PM EST Call Center / [place] Message - General Issue Call Provider patient sees in Clinic: Angelic Perez Caller and relationship (if other than patient-full name): pt Call back number: [phone] Ok to leave a message: y Reason for call: Pt is calling to get another patient assistance application form sent over for the Umbrelvy. Disposition of Call (choose one and remove others): ??? Routine message sent to [place]: x documented in this encounter Plan of Treatment Upcoming Encounters Date Type Specialty Care Team Description 06/23/2022 Office Visit Neurology Deacon Rose, PRESERVATIONIST [facility] [address] [place], [place] [address] (Wo rk) 09/28/2022 Office Visit Neurology Charisse Webb PRESERVATIONIST [facility] [place], [place] [address] (Wo rk) documented as of this encounter Visit Diagnoses Not on filedocumented in this encounter Care Teams Franchise Consultant Relationship Specialty Start Date End Date Chiqui Jeff MD PCP - General 07/15/10 [address] [place] [address] documented as of this encounter
--- OUTSIDE RECORDS SUMMARY | 2022-04-10 00:25 | XMS_ITS | Encounter Summary ---
:1950 [place] [address] Care Team Providers Name Role Phone Chiqui Jeff MD Primary Care Provider Reason for Visit Reason Onset Date Comments Other 07/19/2020 [employer] p aperwork Encounter Details Date Type Department Care Team Description 07/19/2020 [facility], Ot her ([facility] MD Net paperwork) [address] [place] [address] [place], [place] [address] (Wo rk) Social History Tobacco Use Types Packs/Day Years Used Date Never Smoker Smokeless Tobacco: Never Used Alcohol Use Standard Drinks/Week Comments Not Currently 0 (1 standard drink = 0.6 oz pure alcoho l) Sex Assigned at Date Recorded Not on file documented as of this encounter Miscellaneous Notes Telephone Encounter - Rasheeda Neal RN - 07/19/2020 11:56 AM EST Faxed [employer] Net paperwork, RX, copies of insurance cards, pt income and updated PA approval to [phone] documented in this encounter Plan of Treatment Upcoming Encounters Date Type Specialty Care Team Description 06/23/2022 Office Visit Neurology Fernando Gould, Deacon ie L, NATIONAL [employer] OWNER OPERATOR [facility] NEUROLOGY [place], [place] [address] (Wo rk) 09/28/2022 Office Visit Neurology Charisse Webb, NATIONAL V[employer] OWNER OPERATOR [facility] [address] [place], [place] [address] (Wo rk) documented as of this encounter Visit Diagnoses Not on filedocumented in this encounter Care Teams Tower Truck Driver Relationship Specialty Start Date End Date Chiqui Jeff MD PCP - General 07/15/10 [address] [place] [address] documented as of this encounter
--- OUTSIDE RECORDS SUMMARY | 2022-04-10 00:25 | XMS_ITS | Encounter Summary ---
:1950 [place] [address] Care Team Providers Name Role Phone Chiqui Jeff MD Primary Care Provider Reason for Visit Reason Onset Date Comments Prior Authorization 04/03/2022 Ubrelvy Encounter Details Date Type Department Care Team Description 04/03/2022 Telephone Neurology at [facility] Franco P ri[address] Authorization [address] TRANSITIONS MANAGER (Ubrelvy ) [address] [place] [address] [place] [address] [phone] (Wo rk) Social History Tobacco Use Types Packs/Day Years Used Date Never Smoker Smokeless Tobacco: Never Used Alcohol Use Standard Drinks/Week Comments Not Currently 0 (1 standard drink = 0.6 oz pure alcoho l) Sex Assigned at Date Recorded Not on file documented as of this encounter Progress Notes Rasheeda Neal RN - 04/03/2022 1:50 PM EDT Message from Reji MARTINEZ Case: [id number], Status: Approved, Coverage Starts on: 08/23/2021 12:00:00 AM, Coverage Ends on: 08/22/2022 12:00:00 AM. Questions? Contact documented in this encounter Miscellaneous Notes Telephone Encounter - Rasheeda Neal RN - 04/03/2022 1:14 PM EDT Ebony Villanueva ([place]: [id number]) Rx #: [id number] Ubrelvy 100MG tablets Form: [employer] Electronic PA Form Created: 4 days ago Sent to Plan: 4 minutes ago Plan Response: 3 minutes ago Submit Clinical Questions: less than a minute ago Determination: Wait for Determination Please wait for [employer] [facility] 2017 to return a determination. documented in this encounter Plan of Treatment Upcoming Encounters Date Type Specialty Care Team Description 06/23/2022 Office Visit Neurology Deacon Rose, TRANSITIONS MANAGER [facility] [address] [place], [place] [address] (Wo rk) 09/28/2022 Office Visit Neurology Charisse Webb TRANSITIONS MANAGER [facility] [place] [address] [place], [place] [address] (Wo rk) documented as of this encounter Visit Diagnoses Not on filedocumented in this encounter Care Teams Draw Furnace Tender Relationship Specialty Start Date End Date Chiqui Jeff MD PCP - General 07/15/10 [address] [place] [address] documented as of this encounter
--- OUTSIDE RECORDS SUMMARY | 2022-04-10 00:27 | XMS_ITS | Clinical Summary ---
:1950 Author Organization [facility] Address [address] [place] [address] Care Team Providers Name Role Phone Chiqui Jeff MD Primary Care Provider Social History Tobacco Use Types Packs/Day Years Used Date Never Assessed Sex Assigned at Date Recorded Not on file Plan of Treatment Health Maintenance Due Date Last Done Comments Fall Risk Screening 2015 Care Teams Centrifugal Chiller Technician Relationship Specialty Start Date End Date Chiqui Jeff MD PCP - General 11/17/[address] [place] [phone]
--- OUTSIDE RECORDS SUMMARY | 2022-04-10 00:27 | XMS_ITS | Encounter Summary ---
:1950 Author Organization [facility] Address [address] [place] [address] Care Team Providers Name Role Phone Chiqui Jeff MD Primary Care Provider Encounter Details Date Type Department Care Team Description 04/29/2021 Lab Requisition [facility] Outr Resulting Lab, Pathology & Laboratory Provider [facility] [address] [place] [address] Social History Tobacco Use Types Packs/Day Years Used Date Never Assessed Sex Assigned at Date Recorded Not on file documented as of this encounter Plan of Treatment Not on filedocumented as of this encounter Procedures Procedure Name Priority Date/Time Associated Diagnosis Comme nts COVID-19 TEST [facility] Today 04/29/2021 9:30 EDT LAB PCR COVID-19 TESTING Routine 04/29/2021 9:30 EDT Resu lts for this procedure are i n the results section. documented in this encounter Results [facility] (04/29/2021 9:30 EDT) Specimen Swab - Entire nasopharynx (body structur e) Performing Organization Address City/State/ZIP Code Phon e Number [facility] [address] [place] [address] SERVICES COVID-19 TESTING (04/29/2021 9:30 EDT) COVID-19 rt-PCR Negative Negative [facility] Result Comment: CENTER [facility]ORY This test has not been FDA c leared or approved. This test has been authorized by FDA under an EUA for use by authorized laboratories. This test has been authorized only for detection of nucleic acid fro SERVICES m 2019-nCoV, not for any oth er viruses or pathogens. This test is only authorized for the duration of the declaration that circumstances exist justifying the authorization of emergency use of in vitro d iagnostic tests for detectio n and/or diagnosis of 2019-nCoV under section 564(b)(1) of Act, 21 U.S.C ?? 360bbb-3(b) (1), unless the authorization is terminated or revoked sooner. Negative results do not prec lude 2019-nCoV infection and should not be used as the sole basis for treatment or other patient management decisions. Negative results must be combined with clinical observa tions, patient history, and epidemiological informatio n. Performed on the [employer]ALA[employer]CH[employer] Fusion instrument Performing Lab [facility] SERVICES Specimen Swab Performing Organization Address City/State/ZIP Code Phon e Number [facility] [address] [place] [address] SERVICES documented in this encounter Visit Diagnoses Not on filedocumented in this encounter Care Teams Block Hacker Relationship Specialty Start Date End Date Chiqui Jeff MD PCP - General 11/17/[address] [place] [phone] documented as of this encounter
--- OUTSIDE RECORDS SUMMARY | 2022-04-10 00:27 | XMS_ITS | Encounter Summary ---
:[address] [facility] Address [address] [place] [address] Care Team Providers Name Role Phone Unknown, Provider Primary Care Provider Encounter Details Date Type Department Care Team Description 11/11/2010 Results Only [facility] Antwon Cota , Laboratory Services - [address] LAURA JEROME [address] [place] [address] [place] [address] [phone] Social History Tobacco Use Types Packs/Day Years Used Date Never Assessed Sex Assigned at Date Recorded Not on file documented as of this encounter Plan of Treatment Not on filedocumented as of this encounter Procedures Procedure Name Priority Date/Time Associated Diagnosis Comme nts SURGICAL PATHOLOGY Routine 11/11/2010 0:00 EDT Re sults for this procedure are i n the results section. documented in this encounter Results SURGICAL PATHOLOGY (11/11/2010 0:00 EDT) Pathology Report: SURGICAL PATHOLOGY REPORT ? LISET BENZ Reports generated via [employer]r [employer] interface contain original data; ? LAB however they are lacking the format of the original report. ? Caution should be taken when reading/interpreting unformatted reports. ? Name: ? VILLANUEVA, BOB M ? Accession #: ? [id number] ? : ? 1950 (Age: 60) ??F ? Collec t Date: ? 11/11/2010 ? Location: ? [facility] ? R eceive Date: ? 11/11/2010 ? Provider: ANTWON CONTE SON DO ? Copy to: LEANNA SCHNEIDER MD ? Final Pathologic Diagnosis: ? A. ?Duodenum, b iopsies: ? 1. ?No specific pathologic features. ? B. ?Stomach, an trum, biopsies: ? 1. ?No specific pathologic features. ? 2. ? No Helicobacter pyl ashely-like microorganisms identified on H&E-stained ? sections. ? C. ?Stomach, joe dy, biopsies: ? 1. ?No specific pathologic features. ? D. ?Esophagus, distal, biopsies: ? 1. ?Hyperplasti c and reactive squamous mucosa with intraepithelial ? eosinophils, consistent with reflux esophagitis. ? Document reviewed and electr onically signed by: ? MARIE SHIPMAN MD ? Report ??Date: 11/13/2010 16 :54 ? By the signature above, the attending physician certifies that he/she has ? personally conducted a gross and/or microscopic examination of the described ? specimens and rendered or co nfirmed the above diagnosis. ? Specimen(s) Received: ? A. ?Bx duodenum (#1) ? B. ? Bx gastric antrum ( #2) ? C. ? Bx gastric body (#3 ) ? D. ? Bx distal esophagus (#4) ? Clinical History: ? RUQ pain ? Gross Description: ? Received in formalin labelled Bob Villanueva and #1 ??bx duodenum are ?? four light piña biopsies whic h vary in size from 0.2 x 0.2 x 0.2 cm up to 0.5 x ?? 0.2 x 0.1 cm. ??The specimen s are submitted intact as (A1) and (A2). ? Received in formalin jaziel Bob Toledo and #2 ??bx gastric antrum are two light piña biopsies measu ring 0.2 x 0.1 x 0.1 cm and 0.3 x 0.3 x 0.2 cm. ??The specimens are submitted inta ct as (B). ? Received in formalin jazielBob Mantilla and #3 ??bx gastric body are ?? two light piña biopsies measu ring 0.3 x 0.2 x 0.2 cm and 0.4 x 0.3 x 0.2 cm. ??The specimens are submitted inta ct as (C). ? Received in formalin jaziel Bob Toledo and #4 ??bx distal esophagus ?? are three piña-white biopsies which vary in size from 0.1 x 0.1 x 0.1 cm up to ?? 0.5 x 0.4 x 0.2 cm. ??The sp ecimens are submitted intact as (D). ??(J.D. ? Tessitore)/kmm ? End of Report ? Specimen Performing Organization Address City/[facility] Code Phon e Number [facility] [address] [place] [address] [facility] [address] [place] [address] documented in this encounter Visit Diagnoses Not on filedocumented in this encounter Care Teams Dialysis Nurse Relationship Specialty Start Date End Date Unknown, Provider, PCP - General 11/11/10 11/16/10 documented as of this encounter
== END ==
PROVIDERS: PCP Family Medicine; Visit Provider Emergency Medicine
DX: M79.604 Pain in right leg (principal)
CPT/HCPCS: 99281; 93971; 99282

== ENCOUNTER 2022-04-10 13:20 | Emergency (ER) | payer MEDICARE, OTHER, SELFPAY ==
[2022-04-10 13:35] VITALS: BP 166/64; PULSE 99; RESP 18; TEMP 36.8; O2SAT 96
--- NOTE | 2022-04-10 14:20 | ED.GENADUL_ITS ---
Discharge Plan Disposition Patient Disposition: HOME Condition: Stable Discharge Details Clinical Impression: Pain of right leg, Lipoma of right lower extremity Primary Care Provider: Chiqui Jeff ED Provider: Radha Hernandez Home Meds and New Rx's Prescriptions: Continued Aimovig Autoinjector 140 mg/mL auto-injector 140 mg subcut QMONTH Levemir U-100 Insulin 100 unit/mL solution 75 unit SC HS omeprazole magnesium [Prilosec OTC] 20 mg tablet,delayed release (DR/EC) 20 mg PO HS Label Comments: Brand Name only fluconazole 150 mg tablet 150 mg PO QWEEK PRN nystatin 100,000 unit/gram cream 1 applic TP BID metformin 500 MG tablet extended release 24hr 2,000 mg PO DAILY lysine HCl 500 MG tablet 500 mg PO PRN PRN Label Comments: takes prn Discharge Instructions Instructions: Leg Pain (ED), Lipoma (ED) Additional Instructions: Your ultrasound today shows no evidence of a blood clot in your leg. The ultrasound showed evidence of a possible small lipoma which is a fatty growth of tissue. Drink plenty of fluids and get plenty of rest. Follow-up with your primary care doctor in 1 week. Return to the emergency department with any worsening or new concerning symptoms. Discharge Data Discharge Date/Time-TO BE ENTERED AT DEPARTURE: 04/10/22 14:39 Discharge Physician: Radha Hernandez Medical Decision Making 71-year-old female with a history of hypertension, diabetes, GERD, fibromyalgia,, migraines presents for results of leg ultrasound after seen in the ED yesterday for right leg pain and tender lumps on her leg and referred here for outpatient leg ultrasound today. She endorses noting a tender lump on her lower leg recently. The ultrasound today was negative for a DVT but did show evidence of a possible small lipoma. She has 2 areas in her right lateral upper leg which appear consistent with torturous varicose veins. She also has a small minimally tender mass which appears consistent with a lipoma. There is no evidence of cellulitis. Discussed with patient she can follow-up with her primary care doctor and for referral to general surgery for her lipoma removal if she was interested in resection. She was also advised to discuss with her primary care doctor if she would like referral for treatment for her varicose veins. Advised to increase rest, fluids and apply warm or cold compresses. Usual and customary return precautions given prior to discharge. Medical Records Medical records reviewed: Yes I reviewed the patient's medical records. Imaging Data Radiologic Study: Radiologist's impression: US LOWER EXTREMITY VENOUS RT CLINICAL HISTORY: ? RT LEG CYSTS WITH SWELLING, ? DVT.? TECHNIQUE: ? Lower extremity venous ultrasound performed using grayscale, color- flow, and spectral Doppler analysis. COMPARISON:? No exams were available for comparison FINDINGS: The common femoral, femoral and popliteal veins demonstrate normal compressibility, augmentation, and color Doppler. The posterior tibial veins are patent.? No saphenous vein thrombosis or other superficial venous thrombosis is seen.? No hematoma or Sanches's cyst is seen.? Palpable abnormalities are noted in the lateral lower leg.? There is no evidence of a drainable fluid collection in this area.? There is somewhat linear configuration which could represent an area of scarring.? There is a nonspecific fatty echogenicity focus measuring 7 x 7 x 2 millimeters could represent a small lipoma. IMPRESSION: No evidence of DVT.? ? Question of small lipoma.? No suspicious mass or fluid collection. HPI General Mode of arrival: ambulatory . Date/Time Provider Initiated Documentation: 04/10/22 13:21 . Limitations to Documentation: no limitations . Information obtained by: patient . HPI Narrative: Patient is a 81-year-old female who presents for results of the Wilson leg ultrasound and was obtained outpatient today after stopping in the ED yesterday for right leg pain. Patient states she has had intermittent right leg pain past week and her right leg extending from her headache down to her feet. She also states she has noted lumps in her right leg over the past 2 months that have been painful. She denies any known injury. Her ultrasound today is negative for DVT but does note a lipoma. Related Data Home Medications Medication Instructions Recorded Confirmed metformin 500 mg tablet,extended 2,000 mg PO DAILY 11/03/12 04/10/22 release 24hr lysine HCl 500 mg tablet 500 mg PO PRN PRN 07/26/14 04/10/22 fluconazole 150 mg tablet 150 mg PO QWEEK PRN 12/27/19 04/10/22 insulin detemir U-100 100 unit/mL 75 unit subcut HS 12/27/19 04/10/22 subcutaneous solution (Levemir U-100 Insulin) nystatin 100,000 unit/gram topical 1 applic topical BID 12/27/19 04/10/22 cream omeprazole magnesium 20 mg 20 mg PO HS 12/27/19 04/10/22 tablet,delayed release (Prilosec OTC) erenumab-aooe 140 mg/mL 140 mg subcut QMONTH 05/09/20 04/10/22 subcutaneous auto-injector (Aimovig Autoinjector) Allergies Allergy/AdvReac Type Severity Reaction Status Date / Time sulfamethoxazole Allergy Intermediate Skin Rash Verified 04/10/22 13:38 [From Bactrim] trimethoprim [From Bactrim] Allergy Intermediate Skin Rash Verified 04/10/22 13:38 PLACIDO Inhibitors AdvReac Intermediate Epistaxis Verified 04/10/22 13:38 aspirin AdvReac Intermediate Epistaxis Verified 04/10/22 13:38 losartan [Losartan] AdvReac Mild Muscle Verified 04/10/22 13:38 Cramps sulfite AdvReac Headache Verified 04/10/22 13:38 General Stated Complaint: Recheck NIKI: 4 Review of Systems All systems reviewed & are unremarkable except as noted in HPI and below Constitutional Constitutional: Reports as per HPI, Denies chills and Denies fever(s) Eyes Eyes: Denies blurry vision ENT Ears, Nose, Mouth, and Throat: Denies dizziness, Denies sore throat and Denies throat swelling Cardiovascular Cardiovascular: Denies chest pain and Denies dyspnea Respiratory Respiratory: Denies cough and Denies dyspnea Gastrointestinal Gastrointestinal: Denies abdominal pain, Denies diarrhea and Denies vomiting Genitourinary Genitourinary: Denies hematuria and Denies dysuria Musculoskeletal Musculoskeletal: Denies back pain and Denies numbness Integumentary/Breasts Skin/Breast: Denies lesions and Denies rash Neurologic Neurologic: Denies dizziness, Denies localized weakness and Denies numbness Allergic/Immunologic Allergic/Immunologic: Denies throat swelling PFSH All Active Problems (Updated 04/10/22 @ 14:30 by Radha Hernandez DO) Right leg swelling (Acute) Pain of right leg (Acute) Lipoma of right lower extremity (Acute) Facial pain (Acute) Palpitations (Acute) Medical History Benign essential hypertension Chest pain Pt. states this was a few years ago before she lost weight and no longer has chest pain. Chronic tension headache Diabetes mellitus Diabetes mellitus type 1 Pt. states this is incorrect, it is type II Fibromyalgia GERD (gastroesophageal reflux disease) Hypothyroidism pt. states her thyroid levels came back normal Insulin dependent diabetes mellitus Migraine headache Osteopenia Palpitations PUD (peptic ulcer disease) Recurrent sinusitis Recurrent vaginitis Rheumatoid factor positive Solitary pulmonary nodule Surgical History H/O: hysterectomy Hx of appendectomy Hx of arthroscopic knee surgery S/P cholecystectomy Family History Sister , age 65 Cancer Social History Smoking/Tobacco Use Status: Never Smoking risk assessment performed?: Yes Alcohol Intake: never Drug use: Never Substance use type: does not use Do you feel safe at home: Yes Do you feel safe in your relationship?: Yes History History 3 Para 3 Hx # Term Pregnancies Multiple births Hx # Pregnancies Ectopic pregnancies AB induced Hx Number of Living Children AB spontaneous Exam Const General: cooperative, healthy appearing and no acute distress Orientation: alert, awake and oriented x3 HENMT Head: normal to inspection Mouth: oral mucosae normal Eyes General: appearance normal, both eyes and all related structures Neck Neck: normal visual inspection Resp Effort & Inspection: normal respiratory effort and able to speak in complete sentences Cardio Rate: regular rate Skin General skin exam: no rashes or lesions noted Neuro General: patient alert, patient awake and patient oriented x3 Motor: muscle tone normal throughout Extrem General: full ROM Ankle/foot/toe images: 1. 1 x 1 cm minimally tender mass noted on right mid lateral leg. There is no surrounding erythema, ecchymosis, rash or lesions. 2. Tortuous non-tender appearing mass consistent with varicose vein. 3. Tortuous non-tender appearing mass consistent with varicose vein. Psych Appearance: grossly normal Affect: normal affect Course Vital Signs Vital signs: Vital Signs Temperature 98.2 F 04/10/22 13:35 Pulse 99 H 04/10/22 13:35 Respiratory Rate 18 04/10/22 13:35 Blood Pressure 166/64 H 04/10/22 13:35 Pulse Oximetry 96 04/10/22 13:35 Temperature 98.2 F 04/10/22 13:35 Temperature Source Temporal Artery Scan 04/10/22 13:35 Pulse 99 H 04/10/22 13:35 Respiratory Rate 18 04/10/22 13:35 Respiratory Effort Non-Labored 04/10/22 13:38 Blood Pressure 166/64 H 04/10/22 13:35 Blood Pressure Position Sitting 04/10/22 13:35 Pulse Oximetry 96 04/10/22 13:35 Oxygen Delivery Method Room Air 04/10/22 13:35 Oxygen Flow Rate 0 04/10/22 13:35
== END 2022-04-10 14:39 | disposition home or self-care (01) ==
PROVIDERS: Emergency Provider Physician Assistant; PCP Family Medicine
DX: D17.23 Benign lipomatous neoplasm of skin and subcutaneous tissue of right leg (principal); M79.604 Pain in right leg; I10 Essential (primary) hypertension; E10.9 Type 1 diabetes mellitus without complications; Z79.4 Long term (current) use of insulin; Z79.84 Long term (current) use of oral hypoglycemic drugs; Z90.710 Acquired absence of both cervix and uterus
CPT/HCPCS: 99281; 99282

== ENCOUNTER → 2022-05-22 01:00 | Outpatient (CLI) | payer MEDICARE, OTHER, SELFPAY ==
--- NOTE | 2022-05-22 | DI.MAMMO_ITS ---
Exam(s) MAMMO SCREENING EXAM: MAMMO SCREENING CLINICAL HISTORY: SCREENING, Z12.31 TECHNIQUE: Mammograms were interpreted according to the usual protocol including computer analysis w TRADE TO REBATE CAD system, tomosynthesis and C-view imaging. COMPARISON: FINDINGS: The breasts are of moderate density with fairly symmetrical distribution of fibroglandular tissue. N o dominant mass or clumped microcalcification is identified in either breast. A small focal area of asymmetric density projected in the retroareolar portion of the right breast is unchanged in appearan ce comparison with multiple prior examinations including June 2020. IMPRESSION: No specific evidence of malignancy at this time. Routine screening examinations are suggested at yea rly intervals in this age group according to the ACS ACR guidelines. BI-RADS Category 1 - Negative Breast Density - Category B - Scattered areas of fibroglandular density
== END ==
PROVIDERS: PCP Family Medicine; Visit Provider Family Medicine
DX: Z12.31 Encounter for screening mammogram for malignant neoplasm of breast (principal)
CPT/HCPCS: 77063; 77067

== ENCOUNTER 2022-10-23 01:05 | Outpatient (CLI) | payer MEDICARE, OTHER, SELFPAY ==
--- NOTE | 2022-10-23 | DI.MRI_ITS ---
Exam(s) MR BRAIN WO/W EXAM: MR BRAIN WO/W CLINICAL HISTORY: CHRONIC MIGRAIN,TRIGEMINAL AUTONOMIC CEPHALGIAS,G44.099,G43.711 TECHNIQUE: Multiplanar multisequence MRI of the brain was performed. Both noninfused and contrast i nfused sequences were performed. IV Contrast injected was 13 cc Dotarem. COMPARISON: CT CT HEAD SINUS WO from 09/28/2019 FINDINGS: CEREBRAL PARENCHYMA: No evidence of intracranial hemorrhage, mass effect nor shift of midline structu re. No extraaxial fluid collections. Ventricles are not enlarged nor shifted. There is no significant focal signal abnormality in the cerebellar hemispheres nor within the teresita, m idbrain, and thalami. There are multiple FLAIR bright foci of signal abnormality in the periventricular white matter bilate rally. Largest of these measures 6 millimeter. These are not associated with hemorrhage, surroundin g edema, restricted diffusion, nor enhancement following contrast injection. DWI: No areas of restricted diffusion to suggest acute ischemic event. SWI: No microhemorrhages evident. There are no ring enhancing lesions in the brain. There is no abnormal meningeal enhancement. PITUITARY GLAND: No mass nor parasellar abnormality. No obvious abnormality in the cavernous sinuses. INTERNAL AUDITORY CANALS: No evidence of mass in the cerebellopontine angles. Seventh and 8th crania l nerves appear unremarkable within the internal auditory canals. No evidence of intra canalicular a coustic neuroma-schwannoma. Visualized extra pontine aspect of the try diameter all nerves appear unremarkable as they head anter iorly towards Meckel's caves. FLOW VOIDS: The expected flow void are noted. No evidence of obvious aneurysm nor obvious vascular ma lformation. Left vertebral artery is dominant. PARANASAL SINUSES: The visualized paranasal sinuses appear unremarkable. ORBITS: No obvious abnormal findings. IMPRESSION: 1. Multiple nonspecific bilateral FLAIR bright white matter foci probably related to chronic ischemic changes. These are not associated with hemorrhage nor surrounding edema nor abnormal enhancement no r restricted diffusion. 2. No abnormal enhancing intracranial findings. There are no ring enhancing lesions in the brain and there is no abnormal meningeal enhancement. 3. Other findings as above. DATA REPOSITORY:
[2022-10-23 09:11] LABS: CREATININE 0.9 mg/dL (0.55-1.02); Estimated GFR 67.92 (mL/min/1.73m2)
[2022-10-23] MEDS: Normal Saline Flush 10 ML SYR IVP (09:22)
[2022-10-23] MEDS: Gadoterate meglumine 20 ML SYRINGE 13 ML IVP (09:23)
== END 2022-10-23 01:25 ==
LOC: DI 01:05
PROVIDERS: PCP Family Medicine; Visit Provider Nurse Practitioner Family
DX: Z01.812 Encounter for preprocedural laboratory examination (principal); G44.099 Other trigeminal autonomic cephalgias (TAC), not intractable; G43.711 Chronic migraine without aura, intractable, with status migrainosus; I67.82 Cerebral ischemia
CPT/HCPCS: 36415; 70553; 82565

== ENCOUNTER 2022-11-06 20:05 | Outpatient (REF) | payer MEDICARE, OTHER, SELFPAY ==
[2022-11-06 20:12] LABS: COMMENT (LAB VIEW ONLY) 59.95 mg/dL; Microalb ug/mg Crea 7.7 ug/mg Cr
== END 2022-11-06 20:06 | disposition home or self-care (01) ==
LOC: NCHCN 20:05
PROVIDERS: PCP Family Medicine; Visit Provider Family Medicine
DX: E11.9 Type 2 diabetes mellitus without complications (principal)
CPT/HCPCS: 82043; 82570

== ENCOUNTER → 2023-04-22 00:08 | Outpatient (CLI) | payer MEDICARE, OTHER, SELFPAY ==
--- NOTE | 2023-04-22 | DI.DEXA_ITS ---
Exam(s) XR DEXA BONE DENSITY W/WO CHRISTI EXAM: XR DEXA BONE DENSITY W/WO CHRISTI CLINICAL HISTORY: POSTMENOPAUSAL Z78.0 OSTEOPENIA M85.80 SCREENING OSTEOPOROSIS TECHNIQUE: COMPARISON: DX XR DEXA BONE DENSITY W/WO CHRISTI from 03/28/2019 FINDINGS: Lateral Spine Image: Unremarkable. No compression deformities identified. Left hip: Total T-Score: -2.0. This compares to -1.6 on the prior examination. Total Z-Score: -0.4 T- and Z-scores: Findings are consistent with osteopenia. Lumbar Spine: Total T-Score: -1.1. This compares to -1.2 on the prior examination. Total Z-Score: 1.2 T- and Z-scores: Findings are consistent with osteopenia. There is evidence of osteoporosis in the left forearm with a total T-score of -4.2 and Z-score of -2. 0. IMPRESSION: Osteoporosis in the left forearm.
== END ==
PROVIDERS: PCP Family Medicine; Visit Provider Family Medicine
DX: Z78.0 Asymptomatic menopausal state (principal); Z13.820 Encounter for screening for osteoporosis; M80.032A Age-related osteoporosis with current pathological fracture, left forearm, initial encounter for fracture
CPT/HCPCS: 77080

== ENCOUNTER → 2023-05-20 13:55 | Outpatient (BNVA) | payer MEDICARE, OTHER, SELFPAY | PROVIDERS: PCP Family Medicine; Referring Provider Family Medicine; Visit Provider Physical Therapy Assistant | DX: Z12.11 Encounter for screening for malignant neoplasm of colon (principal) ==

== ENCOUNTER 2023-06-10 07:40 | Day surgery (SDC) | payer MEDICARE, OTHER, SELFPAY ==
--- NOTE | 2023-06-09 20:21 | W.PM.DSUDISC ---
Date of service: 06/10/23 Time of Service: 09:37 Discharge Plan Disposition Patient Disposition: Home Condition: Good Discharge Details Reason For Visit: Screening colonoscopy Attending Provider: Jay Ramos Primary Care Provider: Chiqui Jeff Home Meds and New Rx's Prescriptions: Continued Aimovig Autoinjector 140 mg/mL auto-injector 140 mg subcut QMONTH Levemir U-100 Insulin 100 unit/mL solution 75 unit SC HS Patient Comments: 100 units omeprazole magnesium [Prilosec OTC] 20 mg tablet,delayed release (DR/EC) 20 mg PO HS Patient Comments: Brand Name only fluconazole 150 mg tablet 150 mg PO QWEEK PRN nystatin 100,000 unit/gram cream 1 applic TP BID (DME) Accu-Chek Guide test strips Strip See Rx Instructions .Route Rx Instructions: As directed ubrogepant 100 mg tablet 100 mg PO ONCE Rx Instructions: as a single dose; may repeat once in >=2 hours after first dose if needed vit C,O-Xf-ekmqv-lutein-zeaxan [PreserVision AREDS-2] 1 tab PO DIRECTED metformin 500 MG tablet extended release 24hr 2,000 mg PO DAILY lysine HCl 500 MG tablet 500 mg PO PRN PRN Patient Comments: takes prn Discontinued bisacodyl [Dulcolax (bisacodyl)] 5 mg tablet,delayed release (DR/EC) 5 mg PO ONCE Qty: 4 0RF Rx Instructions: Take per colonoscopy instructions provided by ordering providers office polyethylene glycol 3350 17 gram/dose powder 17 g PO ONCE Qty: 238 0RF Rx Instructions: Take per colonoscopy instructions provided by ordering providers office Discharge Instructions Additional Instructions: Ebony, we were able to complete your colonoscopy today without any difficulty. Your prep was excellent. I did not see any signs of tumors, polyps, or any other abnormalities. I recommend considering another colonoscopy in 10 years. 1. If tolerated, consume a soft, low fiber diet for 1-2 days. 2[address] Do not drive, drink alcohol, operate machinery, make critical decisions, or do activities that require coordination or balance for 24 hours. 3. Because air was put into your colon during the procedure, expelling air from your rectum (passing gas or farting) is normal. 4. You may not have a bowel movement for 1-3 days because of the colonoscopy prep. This is normal. 5. Go directly to the emergency room if you notice any of the following: Develop chills (warm to touch), or if you have a thermometer and your temperature is above 101 Difficulty breathing or difficultly swallowing Persistent vomiting Severe abdominal pain, other than gas cramps Severe chest pain Black, tarry stools Any bleeding ? exceeding one tablespoon 6. Call your physician if the site where your intravenous was started becomes red, swollen, painful, and warm to touch. 7. Your physician has reviewed your pre-procedure medications. Please continue to take those medications as previously ordered. You will be given specific information/education regarding any changes to your medications before leaving. Activity:: Activity as Tolerated Diet:: As Tolerated Discharge Orders Discharge Orders: Discharge Order (Routine); Ordered 06/09/23 Ordered By: Jay Ramos DS: Diagnosis Discharge Diagnosis (1) Screening for colon cancer: Status: Acute Asessment and Plan: Negative screening colonoscopy
--- NOTE | 2023-06-09 20:23 | W.COLOREPORT ---
Date of service: 06/10/23 Time of Service: 09:37 Colonoscopy Report Date of procedure: 06/10/23 Pre-op diagnosis general: Screening colonoscopy Post-op diagnosis procedure note: other (Negative screening colonoscopy) Procedure: Colonoscopy Surgeon: Jay Ramos Anesthesia Type: General:No Airway Estimated blood loss (mL): 0 Pathology: none sent Complications: None Disposition: same day Indications: Ebony is a 73 year old woman who needs her next screening colonoscopy Prep: Miralax/Dulcolax Procedure Start Time: 09:15 Procedure End Time: 09:30 Retraction Time: 9 Findings: Negative screening colonoscopy Procedure Description: After the induction of monitored anesthetic care, and with the patient in left lateral decubitus position, I began by performing an external anorectal exam.? Perineum and skin were normal, as was the anal verge.? There was no evidence of external hemorrhoids.? Next, I performed a digital rectal exam.? I did not appreciate any abnormal findings.? Next, I advanced a colonoscope into the rectal vault.? I performed retroflexion.? This appeared normal.? Using insufflation, I then advanced the colonoscope beyond the rectal folds and into the sigmoid colon before advancing towards the cecum.? The scope was noted to be in the cecum by identification of the ileocecal valve and appendiceal orifice.? I then began withdrawing the colonoscope using repeated irrigation as necessary for full evaluation of the colonic mucosa. ?Once the scope was withdrawn to the level of the rectum, great care was taken to examine portions of the rectal folds.? The Butternut prep score was 2, 2, 2 from left to right. finally, the scope was withdrawn and the patient was brought to the same-day surgery recovery unit as the anesthetic wore off. ?The findings and instructions were shared with the patient prior to discharge.
[2023-06-10 07:49] VITALS: BP 165/80; PULSE 66; RESP 22; TEMP 36.2; O2SAT 97
[2023-06-10] MEDS: Lactated Ringers 1,000 ML 80 ML IV (08:14)
--- NOTE | 2023-06-10 08:49 | W.ANESPRE ---
General Info Date of Service Date Performed: 06/10/23 Height: 5 ft 4 in Weight: 67.1 kg Body Mass Index (BMI): 25.4 Surgical Procedure: Operation Date: 06/10/23 08:50 Proposed Procedure Side Surgeon andreas Ramos MD Meds Allergies and Home Medications Allergies Allergy/AdvReac Type Severity Reaction Status Date / Time sulfamethoxazole Allergy Intermediate Skin Rash Verified 06/10/23 08:07 [From Bactrim] trimethoprim [From Bactrim] Allergy Intermediate Skin Rash Verified 06/10/23 08:07 PLACIDO Inhibitors AdvReac Intermediate Epistaxis Verified 06/10/23 08:07 aspirin AdvReac Intermediate Epistaxis Verified 06/10/23 08:07 losartan [Losartan] AdvReac Mild Muscle Verified 06/10/23 08:07 Cramps duloxetine AdvReac stomach Verified 06/10/23 08:07 pain gabapentin AdvReac sleepiness Verified 06/10/23 08:07 sulfite AdvReac Headache Verified 06/10/23 08:07 topiramate AdvReac dizziness, Verified 06/10/23 08:07 disorientation Home Medication Medication Instructions Recorded metformin 500 mg tablet,extended 2,000 mg PO DAILY 11/03/12 release 24hr lysine HCl 500 mg tablet 500 mg PO PRN PRN 07/26/14 fluconazole 150 mg tablet 150 mg PO QWEEK PRN 12/27/19 insulin detemir U-100 100 unit/mL 75 unit subcut HS 12/27/19 subcutaneous solution (Levemir U-100 Insulin) nystatin 100,000 unit/gram topical 1 applic topical BID 12/27/19 cream omeprazole magnesium 20 mg 20 mg PO HS 12/27/19 tablet,delayed release (Prilosec OTC) erenumab-aooe 140 mg/mL 140 mg subcut QMONTH 05/09/20 subcutaneous auto-injector (Aimovig Autoinjector) blood sugar diagnostic (Accu-Chek 01/01/23 Guide test strips) ubrogepant 100 mg tablet 100 mg PO ONCE 01/01/23 vit C,A-Gu-ibhvl-lutein-zeaxan 1 tab PO DIRECTED 01/01/23 Current Visit Medications: Current Medications Generic Name Dose Route Start Last Admin Trade Name Freq PRN Reason Stop Dose Admin Hyoscyamine Sulfate 0.125 mg 06/09/23 20:24 Hyoscyamine 0.125 Mg Sl/Oral/Chew SL 07/09/23 20:23 DIRECTED PRN Ringer's Solution 1,000 mls @ 80 mls/hr 06/10/23 06:00 06/10/23 08:14 IV 07/09/23 23:59 80 mls/hr INFUSION CARLENE Administration IV Miscellaneous Supplies 1 each 06/10/23 06:00 Iv Access IV 07/09/23 23:59 DIRECTED CARLENE Ondansetron HCl 4 mg 06/09/23 20:24 Ondansetron 4 Mg/2 Ml Vial IVP 07/09/23 20:23 Q4H PRN PRN Nausea / Vomiting Sodium Chloride 0 ml 06/10/23 06:00 Normal Saline Flush 10 Ml Syr IV 07/09/23 23:59 PRN PRN Sodium Chloride 0 ml 06/10/23 06:00 Normal Saline 10 Ml Vial IJ 07/09/23 23:59 DIRECTED PRN Sterile Water 0 ml 06/10/23 06:00 Water,Injection,Sterile 10 Ml Vial IJ 07/09/23 23:59 DIRECTED PRN PFSH Active Problems Active Problems: Problem Status Onset Code Otalgia, right ear H92.01 Tension headache G44.209 Parkinsons G20 Screening for colon cancer Z12.11 Nuclear sclerotic cataract of right eye H25.11 Cortical cataract of right eye H26.9 Nuclear sclerotic cataract of left eye H25.12 Cortical cataract of left eye H26.9 Facial pain R51 Palpitations R00.2 Medical History Medical History Chronic pain Seasonal allergies Hypertension Mouth pain Dental infection Diabetes mellitus Fibromyalgia Osteopenia GERD (gastroesophageal reflux disease) PUD (peptic ulcer disease) Rheumatoid factor positive Solitary pulmonary nodule Recurrent vaginitis Chronic tension headache Migraine headache Hypothyroidism pt. states her thyroid levels came back normal Benign essential hypertension Diabetes mellitus type 1 Pt. states this is incorrect, it is type II Recurrent sinusitis Palpitations Chest pain Pt. states this was a few years ago before she lost weight and no longer has chest pain. Insulin dependent diabetes mellitus Surgical History Surgical History History of herniorrhaphy History of tonsillectomy and adenoidectomy Hx of arthroscopic knee surgery Hx of appendectomy S/P cholecystectomy H/O: hysterectomy Tobacco Smoking/Tobacco Use Status: Never Alcohol Alcohol Intake: never Substance Use Substance use: Never Substance use type: does not use Prental History History 3 Para 3 Hx # Term Pregnancies Multiple births Hx # Pregnancies Ectopic pregnancies AB induced Hx Number of Living Children AB spontaneous Vital Signs and Lab Results Vital Signs Most Recent Vital Signs in EMR: Most Recent Vital Signs Temp Pulse Resp BP Pulse Ox 36.2 C L 66 22 165/80 H 97 06/10/23 07:49 06/10/23 07:49 06/10/23 07:49 06/10/23 07:49 06/10/23 07:49 Lab Results Blood Type / Crossmatch: No Data to Display Complete Blood Count: No Data to Display Complete Metabolic Panel: No Data to Display Liver Function Panel: No Data to Display Coagulation Panel: No Data to Display Cardiac Panel: No Data to Display Arterial Blood Gas: No Data to Display Venous Blood Gas: No Data to Display Pancreas Panel: No Data to Display Thyroid Panel: No Data to Display Infectious Disease: No Data to Display Blood Cultures: No Data to Display Toxicology Panel: No Data to Display Imaging and Studies Imaging and Studies Study information below may be from another EMR and interpreted by another provider. Please see original notes in EMR for more complete details. Stress Test Summary: 2020: 5.23 METS. no evidence of ischemia or infarct. EF 74%. Echocardiogram Summary: 04/2021: LVEF 60-65%, trace MR, trace TR. Anesthesia Assessment and Plan Anesthesia History Personal History: No History of Anesthesia Complications Family History: No Family History of Anesthesia Complications Exercise Tolerance Exercise Tolerance: Metabolic Equivalents>4 Pertinent Negatives Pertinent Negatives: No Symptoms of GERD, No Major Pulmonary Symptoms or Complaints and No History of CVA/TIA Cardiac & Pulmonary Exam Cardiac Exam: Normal S1/S2 Heart Sounds Pulmonary Exam: Clear Bilateral Breath Sounds Implantable Cardiac Device Does patient have a Pacemaker or an ICD?: No Airway Exam Known Difficult Airway: No Mallampati Class: 3 Mouth Opening: Normal (> 3cm) Thyromental Distance: Greater than 3 cm Neck Range of Motion: Full ROM Neck Circumference: Normal Teeth Condition: Normal Dentition ASA Classification ASA Score: ASA 3 Emergency Case?: No NPO Status NPO Status: NPO Clears >2 hours, Solids >8 hours Anesthesia Plan Resuscitation Status: Full Code Anesthesia Technique: General Anesthesia Airway Planned: Natural Airway Monitors Used: Standard Monitors Preoperative Comments:: 73 yo patient for colonoscopy Sig PMHx: DMII (last A1c 7.8%), GERD, hypothyroid, palpitations (unremarkable zio patch), fibromyalgia.
[2023-06-10 09:36] VITALS: BP 146/76; PULSE 82; RESP 20; TEMP 36.1; O2SAT 96
[2023-06-10 09:37] VITALS: BMI 25.4
--- NOTE | 2023-06-10 09:51 | W.ANESPOSTOP ---
Postoperative Evaluation Date, Time and Location Date Performed: 06/10/23 Time Performed: 09:36 Patient Location: Day Surgery Unit Vital Signs Most Recent Imported Vital Signs: Most Recent Vital Signs Temp Pulse Resp BP Pulse Ox 36.1 C L 82 20 146/76 H 96 06/10/23 09:36 06/10/23 09:36 06/10/23 09:36 06/10/23 09:36 06/10/23 09:36 Pain Score Most Recent Pain Score: Most Recent Pain Score Pain Level 0 06/10/23 09:36 Assessment Mental Status: Awake (Alert & Oriented to Patient Baseline) Airway and Respiratory Function: Patent airway with normal (patient baseline) respiratory exam Cardiovascular Function: Hemodynamically Stable Hydration Status: Adequately Hydrated Nausea & Vomiting: No Nausea or Vomiting Pain: Pt. Denies Any Pain Peripheral Nerve Block: Patient did not receive a nerve block
[2023-06-10 10:04] VITALS: BP 165/87; PULSE 77; RESP 20; TEMP 36.3; O2SAT 98
== END 2023-06-10 07:41 | disposition home or self-care (01) ==
LOC: SUR 07:40
PROVIDERS: PCP Family Medicine; Visit Provider Surgery
PROC: 0DJD8ZZ Inspection of Lower Intestinal Tract, Via Natural or Artificial Opening Endoscopic (ICD-10-PCS; CPT 45378; principal; 2023-06-10 08:45)
DX: Z12.11 Encounter for screening for malignant neoplasm of colon (principal); G20.C Parkinsonism, unspecified; K21.9 Gastro-esophageal reflux disease without esophagitis
CPT/HCPCS: G0121

== ENCOUNTER 2023-10-27 13:40 | Outpatient (REF) | payer MEDICARE, OTHER, SELFPAY ==
[2023-10-27 19:38] LABS: Hemoglobin A1C 6.2 % (<5.7)
[2023-10-27 19:42] LABS: ALT 22 U/L (14-59); AST 21 U/L (15-37); Albumin 3.9 g/dL (3.4-5.0); Alkaline Phosphatase 124 U/L (46-116); Anion Gap 11.1 mmol/L (3-11); BUN 9 mg/dL (7-18); Bilirubin, Total 0.6 mg/dL (0.2-1.0); CO2 27.9 mmol/L (21.0-32.0); CREATININE 0.8 mg/dL (0.55-1.02); Calcium 9.5 mg/dL (8.5-10.1); Chloride 99 mmol/L (98-107); Estimated GFR 77.75 (mL/min/1.73m2); Glucose 121 mg/dL (74-106); Potassium 4.5 mmol/L (3.5-5.1); Sodium 138 mmol/L (136-145); Total Protein 7.3 g/dL (6.4-8.2)
[2023-10-27 19:43] LABS: COMMENT (LAB VIEW ONLY) 45.42 mg/dL; Microalb ug/mg Crea 9.9 ug/mg Cr
== END 2023-10-27 13:41 | disposition home or self-care (01) ==
LOC: NCHCN 13:40
PROVIDERS: PCP Family Medicine; Visit Provider Family Medicine
DX: I10 Essential (primary) hypertension (principal); E11.9 Type 2 diabetes mellitus without complications
CPT/HCPCS: 80053; 82043; 82570; 83036

== ENCOUNTER 2023-11-16 16:18 | Emergency (ER) | payer MEDICARE, OTHER, SELFPAY ==
[2023-11-16 16:23] VITALS: BP 170/69; PULSE 87; RESP 20; TEMP 36.4; O2SAT 96
--- NOTE | 2023-11-16 17:00 | DI.RAD_ITS ---
Exam(s) XR KNEE LT 3V AP,LAT,AMISH EXAM: XR KNEE LT 3V AP,LAT,AMISH CLINICAL HISTORY: left knee. TECHNIQUE: 2D digital imaging was performed. Three views. COMPARISON: CR LEFT KNEE 4+ VIEWS from 10/18/2017 FINDINGS: BONES: No acute fracture is present. No bony destructive lesion is seen. Enthesophyte upper pole o f the patella. JOINTS: The knee is normally aligned. No joint effusion is seen. Moderate narrowing of the medial fem oral tibial joint space. SOFT TISSUE: Normal. IMPRESSION: No acute abnormality. DATA REPOSITORY: RADIATION DOSE DELIVERED:
[2023-11-16] MEDS: Acetaminophen 325 MG TAB 650 MG PO (18:20)
--- NOTE | 2023-11-16 20:44 | ED.GENADUL_ITS ---
Discharge Plan Disposition Patient Disposition: Home Condition: Stable Discharge Details Clinical Impression: Contusion of knee Primary Care Provider: Chiqui Jeff ED Provider: Edna Coats Home Meds and New Rx's Prescriptions: Continued Aimovig Autoinjector 140 mg/mL auto-injector 140 mg subcut QMONTH Levemir U-100 Insulin 100 unit/mL solution 75 unit SC HS Patient Comments: 100 units omeprazole magnesium [Prilosec OTC] 20 mg tablet,delayed release (DR/EC) 20 mg PO HS Patient Comments: Brand Name only fluconazole 150 mg tablet 150 mg PO QWEEK PRN nystatin 100,000 unit/gram cream 1 applic TP BID (DME) Accu-Chek Guide test strips Strip See Rx Instructions .Route Rx Instructions: As directed vit C,B-Jz-qhixx-lutein-zeaxan [PreserVision AREDS-2] 1 tab PO DIRECTED metformin 500 MG tablet extended release 24hr 2,000 mg PO DAILY lysine HCl 500 MG tablet 500 mg PO PRN PRN Patient Comments: takes prn amoxicillin-pot clavulanate 875-125 mg tablet 1 tab PO BID Discharge Instructions Instructions: Contusion in Adults (ED) Additional Instructions: Wear your brace as needed Apply Voltaren gel as needed for discomfort Tylenol 650 every 4-6 hours Return earlier should you have new or worsening complaints time with pain persisting greater than 7 days recommendation for repeat x-ray Referrals: Chiqui Jeff MD [Primary Care Provider] - Discharge Data Discharge Date/Time-TO BE ENTERED AT DEPARTURE: 11/16/23 18:24 HPI General Date/Time Provider Initiated Documentation: 11/16/23 16:25 . HPI Narrative: This 73-year-old female presents with injury to left lateral knee. States she caught her while he was following knee landed on her left knee. She denies any head injury and has been able to ambulate with discomfort since the event occurred. Denies any abdominal pain, chest pain, shortness of breath. Related Data Home Medications Medication Instructions Recorded Confirmed metformin 500 mg tablet,extended 2,000 mg PO DAILY 11/03/12 11/16/23 release 24hr (osmotic) lysine HCl 500 mg tablet 500 mg PO PRN PRN 07/26/14 11/16/23 fluconazole 150 mg tablet 150 mg PO QWEEK PRN 12/27/19 11/16/23 insulin detemir U-100 100 unit/mL 75 unit subcut HS 12/27/19 11/16/23 subcutaneous solution (Levemir U-100 Insulin) nystatin 100,000 unit/gram topical 1 applic topical BID 12/27/19 11/16/23 cream omeprazole magnesium 20 mg 20 mg PO HS 12/27/19 11/16/23 tablet,delayed release (Prilosec OTC) erenumab-aooe 140 mg/mL 140 mg subcut QMONTH 05/09/20 11/16/23 subcutaneous auto-injector (Aimovig Autoinjector) blood sugar diagnostic (Accu-Chek 01/01/23 11/16/23 Guide test strips) vit C,I-Vt-yzcjf-lutein-zeaxan 1 tab PO DIRECTED 01/01/23 11/16/23 amoxicillin 875 mg-potassium 1 tab PO BID 11/16/23 11/16/23 clavulanate 125 mg tablet Allergies Allergy/AdvReac Type Severity Reaction Status Date / Time sulfamethoxazole Allergy Intermediate Skin Rash Verified 11/16/23 16:54 [From Bactrim] trimethoprim [From Bactrim] Allergy Intermediate Skin Rash Verified 11/16/23 16:54 PLACIDO Inhibitors AdvReac Intermediate Epistaxis Verified 11/16/23 16:54 aspirin AdvReac Intermediate Epistaxis Verified 11/16/23 16:54 losartan [Losartan] AdvReac Mild Muscle Verified 11/16/23 16:54 Cramps duloxetine AdvReac stomach Verified 11/16/23 16:54 pain gabapentin AdvReac sleepiness Verified 11/16/23 16:54 sulfite AdvReac Headache Verified 11/16/23 16:54 topiramate AdvReac dizziness, Verified 11/16/23 16:54 disorientation General Stated Complaint: Orthopedic NIKI: 4 Course Vital Signs Vital signs: Vital Signs Temperature 36.4 C L 11/16/23 16:23 Pulse 87 11/16/23 16:23 Respiratory Rate 20 11/16/23 16:23 Blood Pressure 170/69 H 11/16/23 16:23 Pulse Oximetry 96 11/16/23 16:23 Temperature 36.4 C L 11/16/23 16:23 Temperature Source Skin 11/16/23 16:23 Pulse 87 11/16/23 16:23 Respiratory Rate 20 11/16/23 16:23 Respiratory Effort Normal, Non-Labored 11/16/23 16:51 Blood Pressure 170/69 H 11/16/23 16:23 Blood Pressure Position Sitting 11/16/23 16:23 Pulse Oximetry 96 11/16/23 16:23 Oxygen Delivery Method Room Air 11/16/23 16:23 Oxygen Flow Rate 0 11/16/23 16:23 Pain Level 8 11/16/23 18:20 Medical Decision Making 73-year-old female presenting with left lateral knee pain. No visible sign of trauma, tenderness to her lateral knee, flexion extension intact, x-ray does not show evidence of acute abnormality per radiology interpretation my review No tenderness to left hip or left ankle Placed in a hinged knee brace for comfort Recheck in 1 week recommended Precautions reviewed and patient expressed understanding Quality:SDOH Health Related Social Needs: No Data to Display PFSH All Active Problems (Updated 11/16/23 @ 18:07 by MICHELLE Sesay) Contusion of knee (Acute) Otalgia, right ear (Acute) Tension headache (Acute) Parkinsons (Chronic) Screening for colon cancer (Acute) Facial pain (Acute) Palpitations (Acute) Medical History (Updated 11/16/23 @ 18:07 by MICHELLE Sesay) Chronic pain Seasonal allergies Hypertension Mouth pain Dental infection Diabetes mellitus Fibromyalgia Osteopenia GERD (gastroesophageal reflux disease) PUD (peptic ulcer disease) Rheumatoid factor positive Solitary pulmonary nodule Recurrent vaginitis Chronic tension headache Migraine headache Hypothyroidism pt. states her thyroid levels came back normal Benign essential hypertension Diabetes mellitus type 1 Pt. states this is incorrect, it is type II Recurrent sinusitis Palpitations Chest pain Pt. states this was a few years ago before she lost weight and no longer has chest pain. Insulin dependent diabetes mellitus Surgical History (Updated 06/10/23 @ 15:37 by Alycia Leyva) History of colonoscopy (~05/2023) History of herniorrhaphy History of tonsillectomy and adenoidectomy Hx of arthroscopic knee surgery Hx of appendectomy S/P cholecystectomy H/O: hysterectomy Family History Sister , age 65 Cancer Social History Smoking/Tobacco Use Status: Never Smoking risk assessment performed?: Yes Alcohol Intake: never Drug use: Never Substance use type: does not use Housing: house Current gender identity: female Do you feel safe at home: Yes Do you feel safe in your relationship?: Yes History History 3 Para 3 Hx # Term Pregnancies Multiple births Hx # Pregnancies Ectopic pregnancies AB induced Hx Number of Living Children AB spontaneous
== END 2023-11-16 18:24 | disposition home or self-care (01) ==
PROVIDERS: Emergency Provider Physician Assistant; PCP Family Medicine
DX: S80.02XA Contusion of left knee, initial encounter (principal); I10 Essential (primary) hypertension; E10.9 Type 1 diabetes mellitus without complications; W18.39XA Other fall on same level, initial encounter; Y93.F2 Activity, caregiving, lifting; Y92.018 Other place in single-family (private) house as the place of occurrence of the external cause
CPT/HCPCS: 73562; 99283

== ENCOUNTER 2024-01-20 10:56 | Emergency (ER) | payer MEDICARE, OTHER, SELFPAY ==
[2024-01-20] VITALS (10 sets, daily range): BP systolic 170–212; BP diastolic 80–95; PULSE 80–108; RESP 11–21; TEMP 36.7; O2SAT 96–100
--- NOTE | 2024-01-20 10:57 | W.ED.GENAD ---
Discharge Plan Disposition Patient Disposition: Home Discharge Details Clinical Impression: Closed fracture of right patella Primary Care Provider: Chiqui Jeff ED Provider: Juan Stephens Home Meds and New Rx's Prescriptions: Continued Aimovig Autoinjector 140 mg/mL auto-injector 140 mg subcut QMONTH Levemir U-100 Insulin 100 unit/mL solution 75 unit SC HS Patient Comments: 100 units omeprazole magnesium [Prilosec OTC] 20 mg tablet,delayed release (DR/EC) 20 mg PO HS Patient Comments: Brand Name only fluconazole 150 mg tablet 150 mg PO QWEEK PRN nystatin 100,000 unit/gram cream 1 applic TP BID (DME) Accu-Chek Guide test strips Strip See Rx Instructions .Route Rx Instructions: As directed vit C,C-Cp-chqzm-lutein-zeaxan [PreserVision AREDS-2] 1 tab PO DIRECTED metformin 500 MG tablet extended release 24hr 2,000 mg PO DAILY lysine HCl 500 MG tablet 500 mg PO PRN PRN Patient Comments: takes prn insulin degludec [Tresiba FlexTouch U-200] 200 unit/mL (3 mL) insulin pen 100 unit subcut DAILY Discharge Instructions Additional Instructions: You are seen in the emergency department for your knee pain. You are found to have a fracture of your patella on the right. You may bear weight as tolerated using your knee brace. Please follow-up with orthopedic team or your primary care provider in 1 month as you will need a repeat x-ray. Please return to the emergency department if you develop any redness or lose sensation in your foot. For your pain please take medications as follows: 1. Take acetaminophen (Tylenol), 1,000 mg (two 500 mg tabs) every 6 hours Referrals: [facility] [Provider Group] HPI General Date/Time Provider Initiated Documentation: 01/20/24 10:57. HPI Narrative: MDM This is an overall well-appearing normothermic but initially tachycardic diabetic female with bilateral knee pain and general weakness concerning for multiple etiologies. No pain out of proportion to suggest necrotizing soft tissue infection. Patient is able to straight leg raise bilaterally so I am not concerned for quadriceps tendon injury. Patient has bilateral warm well-perfused feet so I am not concerned for critical limb ischemia so I do not feel the patient requires a CT angiogram with runoffs. I considered ACS as patient is a diabetic however she denies nausea vomiting abdominal pain chest pain shortness of breath so I did not obtain an ECG nor check a troponin. I considered CVA however the patient is neurologically intact has no objective weakness nor headaches so I did not feel that she required a CT scan nor would she be a tPA candidate. No dysuria nor frequency so doubt UTI. Soft nontender abdomen so I am not concerned for intra-abdominal process. No tenderness to bilateral calves so I am not suspicious for DVT. Patient has no calf pain so I am not concerned for Achilles tendon injury so I did not perform a Martins test. No recent tick bite to suggest Lyme arthritis. No significant swelling nor redness so my suspicion is low for gout. No fevers nor significant knee effusion to suggest septic arthritis. 11:51 AM CBC lacks anemia thrombocytopenia and leukocytosis. Basic metabolic panel showing mild hyperglycemia but no anion gap and normal bicarbonate??not consistent with DKA. No acute electrolyte abnormalities. 12:37 PM I reviewed the patient's plain films with Dr. Gomes. He felt that the patient could be weightbearing as tolerated with a knee immobilizer. Patient has a walker at home. He advised repeat plain films and 1 month and follow-up either with primary care or with orthopedics. I met with the patient and explained her findings. I advised her to return to the emergency department if she developed worsening pain recurrent falls fevers or any numbness or tingling in her feet. She understood her return indications and was discharged with an empiric trial of expectant outpatient management. I advised acetaminophen at home for analgesia. Chronic conditions affecting the care of the patient: Diabetes History obtained from an outside historian: N/A External record review: N/A Medications: Acetaminophen Social determinants of health affecting disposition: N/A Management discussed with: Orthopedics Treatment/interventions considered: CT scan but deferred as it would not electronic data interchange specialist Response to therapies provided: Improved pain in the ED HPI This is a diabetic 73-year-old arriving to emergency department via private vehicle in the setting of bilateral knee pain. Patient reports that 2 weeks ago she was in her basement and stepped up onto a pallet approximately 3 inches off of the ground. She was reaching up to turn off a light. She lost her balance. She caught her self from falling by landing on her bilateral knees. She has remotely had right ligamentous injuries repaired to both knees. She has been ambulating but has had pain in both of her knees has resolved. She also feels generally weak. She denies any focal areas of weakness. She denies dysuria and frequency. No fevers nor chills. No cough. No shortness of breath. No nausea nor vomiting. No chest pain. Patient has a history of parkinsonism. Exam General: Well-appearing in no acute distress speaking in complete sentences. Head: Normocephalic, atraumatic. Eye: Extraocular eye movements intact. No conjunctival injection. No scleral icterus. Ear, nose, mouth, throat: Grossly normal inspection. Normal voice, handling secretions normally. Neck: Trachea midline. Cardiovascular: Well-perfused distal extremities. Regular rate and rhythm Respiratory: Nonlabored respiration. Clear lungs bilaterally Gastrointestinal: Nondistended abdomen. Soft nontender Musculoskeletal: Right knee No effusions no erythema no fluctuance. Patient is able to straight leg raise. Patient able to flex her knee to approximately 90 degrees. No calf tenderness. Right foot warm well-perfused 2+ right PT and DP pulse. 5 out of 5 strength right foot dorsi and plantarflexion. No palpable cords in calf??negative Homans' sign. Left knee No knee effusion. No erythema. No fluctuance. Patient is able to straight leg raise. Patient able to flex her knee to approximately 90 degrees. No calf tenderness. Left foot warm well-perfused 2+ right PT and DP pulse. 5 out of 5 strength right foot dorsi and plantarflexion. No palpable cords in calf??negative Homans' sign. Skin: Normal for age and race, grossly normal temperature and turgor. No acute rash. Neurologic: Alert and appropriate, no apparent acute deficits. GCS 15. Coarse diffuse pill-rolling tremor Psychiatric: Mood and manner are appropriate. Grooming and personal hygiene are appropriate. Related Data Home Medications Medication Instructions Recorded Confirmed metformin 500 mg tablet,extended 2,000 mg PO DAILY 11/03/12 01/20/24 release 24hr (osmotic) lysine HCl 500 mg tablet 500 mg PO PRN PRN 07/26/14 01/20/24 fluconazole 150 mg tablet 150 mg PO QWEEK PRN 12/27/19 01/20/24 insulin detemir U-100 100 unit/mL 75 unit subcut HS 12/27/19 01/20/24 subcutaneous solution (Levemir U-100 Insulin) nystatin 100,000 unit/gram topical 1 applic topical BID 12/27/19 01/20/24 cream omeprazole magnesium 20 mg 20 mg PO HS 12/27/19 01/20/24 tablet,delayed release (Prilosec OTC) erenumab-aooe 140 mg/mL 140 mg subcut QMONTH 05/09/20 01/20/24 subcutaneous auto-injector (Aimovig Autoinjector) blood sugar diagnostic (Accu-Chek 01/01/23 11/16/23 Guide test strips) vit C,E-Uu-klqqn-lutein-zeaxan 1 tab PO DIRECTED 01/01/23 01/20/24 insulin degludec 200 unit/mL (3 100 unit subcut DAILY 01/20/24 01/20/24 mL) subcutaneous pen (Tresiba FlexTouch U-200 insulin) Allergies Allergy/AdvReac Type Severity Reaction Status Date / Time sulfamethoxazole Allergy Intermediate Skin Rash Verified 01/20/24 11:13 [From Bactrim] trimethoprim [From Bactrim] Allergy Intermediate Skin Rash Verified 01/20/24 11:13 PLACIDO Inhibitors AdvReac Intermediate Epistaxis Verified 01/20/24 11:13 aspirin AdvReac Intermediate Epistaxis Verified 01/20/24 11:13 losartan [Losartan] AdvReac Mild Muscle Verified 01/20/24 11:13 Cramps duloxetine AdvReac stomach Verified 01/20/24 11:13 pain gabapentin AdvReac sleepiness Verified 01/20/24 11:13 sulfite AdvReac Headache Verified 01/20/24 11:13 topiramate AdvReac dizziness, Verified 01/20/24 11:13 disorientation General NIKI: 4 Medical Decision Making Quality:SDOH Health Related Social Needs: No Data to Display PFSH All Active Problems (Updated 01/20/24 @ 12:24 by Juan Stephens MD) Closed fracture of right patella (Acute) Otalgia, right ear (Acute) Tension headache (Acute) Parkinsons (Chronic) Screening for colon cancer (Acute) Facial pain (Acute) Palpitations (Acute) Medical History (Updated 01/20/24 @ 12:24 by Juan Stephens MD) Chronic pain Seasonal allergies Hypertension Mouth pain Dental infection Diabetes mellitus Fibromyalgia Osteopenia GERD (gastroesophageal reflux disease) PUD (peptic ulcer disease) Rheumatoid factor positive Solitary pulmonary nodule Recurrent vaginitis Chronic tension headache Migraine headache Hypothyroidism pt. states her thyroid levels came back normal Benign essential hypertension Diabetes mellitus type 1 Pt. states this is incorrect, it is type II Recurrent sinusitis Palpitations Chest pain Pt. states this was a few years ago before she lost weight and no longer has chest pain. Insulin dependent diabetes mellitus Surgical History (Updated 06/10/23 @ 15:37 by Alycia Leyva) History of colonoscopy (~05/2023) History of herniorrhaphy History of tonsillectomy and adenoidectomy Hx of arthroscopic knee surgery Hx of appendectomy S/P cholecystectomy H/O: hysterectomy Family History Sister , age 65 Cancer Social History Smoking/Tobacco Use Status: Never Smoking risk assessment performed?: Yes Alcohol Intake: never Drug use: Never Substance use type: does not use Housing: house Current gender identity: female Do you feel safe at home: Yes Do you feel safe in your relationship?: Yes History History 3 Para 3 Hx # Term Pregnancies Multiple births Hx # Pregnancies Ectopic pregnancies AB induced Hx Number of Living Children AB spontaneous
--- NOTE | 2024-01-20 11:00 | DI.RAD_ITS ---
Exam(s) XR KNEE LT 4V AP,LAT,AMISH,PAT EXAM: XR KNEE LT 4V AP,LAT,AMISH,PAT CLINICAL HISTORY: Left knee pain status post fall. TECHNIQUE: 2D digital imaging was performed of the left knee. Four images were obtained. Merchant, AP, lateral and PA tunnel views were obtained. COMPARISON: CR XR KNEE LT 3V AP,LAT,AMISH from 11/16/2023 FINDINGS: BONES: No acute fracture is present. No bony destructive lesion is seen. JOINTS: There are mild degenerative changes seen in the knee. No joint effusion is seen. No loose joe dy. SOFT TISSUE: Normal. IMPRESSION: No acute fracture or dislocation. DATA REPOSITORY: RADIATION DOSE DELIVERED:
--- NOTE | 2024-01-20 11:00 | DI.RAD_ITS ---
Exam(s) XR KNEE RT 4V AP,LAT,AMISH,PAT EXAM: XR KNEE RT 4V AP,LAT,AMISH,PAT CLINICAL HISTORY: Right knee pain status post fall. TECHNIQUE: 2D digital imaging was performed of the right knee. Four views obtained. Merchant, AP, la teral and PA tunnel views were obtained. COMPARISON: CR XR KNEE LT 4V AP,LAT,AMISH,PAT from 01/20/2024 FINDINGS: BONES: There is an acute nondisplaced fracture involving the medial aspect of the patella. No bony d estructive lesion is seen. JOINTS: The knee is normally aligned. No joint effusion is seen. SOFT TISSUE: Normal. IMPRESSION: Nondisplaced fracture involving the medial patella. DATA REPOSITORY: RADIATION DOSE DELIVERED:
[2024-01-20 11:43] LABS: Abs Immature Grans 0.03 10^3/uL (0.0-0.06); Absolute Basophil Count 0.07 10^3/uL (0.0-0.2); Absolute Eosinophil Count 0.23 10^3/uL (0.0-0.7); Absolute Lymphocyte Count 2.56 10^3/uL (1.2-3.4); Absolute Monocyte Count 0.57 10^3/uL (0.1-0.8); Absolute Neutrophil Count 2.72 10^3/uL (1.2-6.7); Basophils % 1.1 %; Eosinophils % 3.7 %; HCT 41.2 % (36.0-46.0); HGB 14.6 g/dL (11.2-15.7); Immature Grans % 0.5 %; Lymphocytes % 41.4 %; MCH 30.4 pg (27.0-33.0); MCHC 35.4 % (32.0-36.0); MCV 86 fL (80-95); MPV 9.1 fL (8.0-11.0); Monocytes % 9.2 %; Neutrophils % 44.1 %; Platelet Count 181 10^3/uL (130-400); RBC 4.81 10^6/uL (3.93-5.22); RDW 11.8 % (11.7-14.6); RDW-SD 36.8 fL; WBC 6.18 10^3/uL (4.4-10.8)
[2024-01-20 11:47] LABS: Anion Gap 8.1 mmol/L (3-11); BUN 13 mg/dL (7-18); CO2 26.9 mmol/L (21.0-32.0); CREATININE 0.9 mg/dL (0.55-1.02); Calcium 8.9 mg/dL (8.5-10.1); Chloride 95 mmol/L (98-107); Glucose 196 mg/dL (74-106); Potassium 4.5 mmol/L (3.5-5.1); Sodium 130 mmol/L (136-145)
[2024-01-20] MEDS: Acetaminophen 500 MG TAB 1000 MG PO (11:57)
== END 2024-01-20 13:02 | disposition home or self-care (01) ==
PROVIDERS: Emergency Provider Emergency Medicine; PCP Family Medicine
DX: S82.001A Unspecified fracture of right patella, initial encounter for closed fracture (principal); M25.562 Pain in left knee; M25.561 Pain in right knee; R53.1 Weakness; X50.1XXA Overexertion from prolonged static or awkward postures, initial encounter; E11.65 Type 2 diabetes mellitus with hyperglycemia; I10 Essential (primary) hypertension; G20.C Parkinsonism, unspecified; Z79.4 Long term (current) use of insulin; Z79.84 Long term (current) use of oral hypoglycemic drugs; Z79.899 Other long term (current) drug therapy
CPT/HCPCS: 29505; 36415; 80048; 99284; 73564; 85025

== ENCOUNTER 2024-02-04 09:55 | Outpatient (CLI) | payer MEDICARE, OTHER, SELFPAY ==
--- NOTE | 2024-02-04 09:09 | DI.RAD_ITS ---
Exam(s) XR HIP LT COMPLETE AP PELVIS EXAM: XR HIP LT COMPLETE AP PELVIS CLINICAL HISTORY: left hip pain. TECHNIQUE: 2D digital imaging was performed. COMPARISON: No exams were available for comparison FINDINGS: Two views. No evidence of pelvic nor hip fracture. No hip joint space narrowing. Additional lateral view of th e left hip does not reveal joint space narrowing nor osteophytes. No osseous lesions in the pelvis and the sacroiliac joints appear age-appropriate. No osseous lesion s IMPRESSION: No significant radiograph findings in the pelvis and hips. DATA REPOSITORY: RADIATION DOSE DELIVERED:
--- NOTE | 2024-02-04 09:09 | DI.RAD_ITS ---
Exam(s) XR KNEE RT 3V AP,LAT,AMISH EXAM: XR KNEE RT 3V AP,LAT,AMISH CLINICAL HISTORY: F/U FX. TECHNIQUE: 2D digital imaging was performed. COMPARISON: CR XR KNEE RT 4V AP,LAT,AMISH,PAT from 01/20/2024 FINDINGS: 3 views Again noted is the nondisplaced fracture line in the medial 3rd of the patella. Fracture line is sti ll visible on merchant's view. There is no distraction at the fracture site and no patellar offset w ith respect to the intercondylar fossa. There is no narrowing of the medial lateral compartments nor of the patellofemoral compartment. Ther e are no osteochondral defects. No osseous lesions. IMPRESSION: Stable appearance of the vertically orientated fracture line in the medial 3rd of the patella. No si gnificant radiographic change compared to 01/20/2024. DATA REPOSITORY: RADIATION DOSE DELIVERED:
== END 2024-02-04 09:56 | disposition home or self-care (01) ==
LOC: DIORS 09:55
PROVIDERS: PCP Family Medicine; Referring Provider Family Medicine
DX: S82.001A Unspecified fracture of right patella, initial encounter for closed fracture (principal); M25.552 Pain in left hip; X58.XXXA Exposure to other specified factors, initial encounter
CPT/HCPCS: 73562; 99213; 73502

== ENCOUNTER 2024-02-17 11:00 | Outpatient (CLI) | payer MEDICARE, OTHER, SELFPAY ==
--- NOTE | 2024-02-17 10:45 | DI.RAD_ITS ---
Exam(s) XR KNEE RT 3V AP,LAT,AMISH EXAM: XR KNEE RT 3V AP,LAT,AMISH CLINICAL HISTORY: f/u R PATELLA FX. TECHNIQUE: 2D digital imaging was performed of the right knee. Three views obtained. Merchant, AP an d lateral views were obtained. COMPARISON: CR XR KNEE RT 3V AP,LAT,AMISH from 02/04/2024 FINDINGS: BONES: There is no change in alignment of the fracture involving the medial aspect of the patella. T he fracture line is still visualized. No new fracture is seen. No bony destructive lesion is seen. JOINTS: The knee is normally aligned. No joint effusion is seen. SOFT TISSUE: Normal. IMPRESSION: Stable alignment of the patellar fracture. DATA REPOSITORY: RADIATION DOSE DELIVERED:
== END 2024-02-17 11:01 | disposition home or self-care (01) ==
LOC: DIORS 11:00
PROVIDERS: PCP Family Medicine; Referring Provider Family Medicine; Visit Provider Student in an Organized Health Care Education/Training Program
DX: S82.001D Unspecified fracture of right patella, subsequent encounter for closed fracture with routine healing (principal); X58.XXXD Exposure to other specified factors, subsequent encounter
CPT/HCPCS: 73562; 99213

== ENCOUNTER 2024-03-30 15:26 | Outpatient (CLI) | payer MEDICARE, OTHER, SELFPAY ==
--- NOTE | 2024-03-30 11:00 | DI.RAD_ITS ---
Exam(s) XR KNEE RT 3V AP,LAT,AMISH EXAM: XR KNEE RT 3V AP,LAT,AMISH CLINICAL HISTORY: patella fracture follow up. TECHNIQUE: 2D digital imaging was performed. Three views. COMPARISON: CR XR KNEE RT 3V AP,LAT,AMISH from 02/17/2024 FINDINGS: BONES: Bones appear somewhat osteopenic. In there has been continued healing at the patellar fractur e. No new fracture is present. No bony destructive lesion is seen. JOINTS: The knee is normally aligned. No joint effusion is seen. Joint spaces are maintained. Mild p eriarticular spurring. SOFT TISSUE: Normal. IMPRESSION: Continued healing of patellar fracture. DATA REPOSITORY: RADIATION DOSE DELIVERED:
== END 2024-03-30 15:27 | disposition home or self-care (01) ==
LOC: DIORS 15:27
PROVIDERS: PCP Family Medicine; Visit Provider Physician Assistant
DX: S82.001D Unspecified fracture of right patella, subsequent encounter for closed fracture with routine healing (principal); X58.XXXD Exposure to other specified factors, subsequent encounter
CPT/HCPCS: 73562; 99213

== ENCOUNTER 2024-05-05 22:05 | Outpatient (REF) | payer MEDICARE, OTHER, SELFPAY | END 2024-05-05 22:06 | disposition home or self-care (01) | LOC: LBN 22:05 | PROVIDERS: PCP Family Medicine; Visit Provider Physician Assistant Medical | DX: J02.9 Acute pharyngitis, unspecified (principal) | CPT/HCPCS: 87070 ==

== ENCOUNTER 2024-08-04 01:03 | Outpatient (CLI) | payer MEDICARE, OTHER, SELFPAY ==
--- NOTE | 2024-08-04 15:02 | DI.MAMMO_ITS ---
Exam(s) MAMMO SCREENING EXAM: MAMMO SCREENING CLINICAL HISTORY: SCREENING,Z12.31. TECHNIQUE: Bilateral full field digital CC and MLO mammographic images were obtained with 3D tomosyn thesis and utilizing computer aided detection (CAD). COMPARISON: Prior mammograms were reviewed. FINDINGS: There has been no significant change in the appearance and distribution of the fibroglandular tissue. There are no CAD designations. There are no new spiculated masses nor malignant appearing microcalcification groups. There is no significant architectural distortion nor skin thickening-retraction. IMPRESSION: No radiographic evidence of malignancy. BI-RADS Category 1 - Negative Breast Density - Category B - Scattered areas of fibroglandular density Breast density Category C or D implies that the patient has dense breast tissue. Dense breast tissue can make it harder to find cancer on a mammogram. Dense breast tissue is also associated with an incr eased risk of breast cancer. This information about the result of the mammogram report was provided to the patient to raise their awareness. Use this report when you speak with the patient about their risks for breast cancer, which includes their family history. At that time, you may recommend additional screening tests (Ultrasoun d or MRI) as these tests may add significant information. A negative radiographic report should not delay biopsy if a dominant or clinically suspicious mass is present. Up to ten percent of cancers are not identified on mammography. A negative report may reinforce clinical impression. Adenosis and dense breasts may obscure an underlying neoplasm. False positive reports average 6 to 10%. Patient will receive a letter notifying them of these results.
== END 2024-08-04 01:23 ==
LOC: DI 01:03
PROVIDERS: PCP Family Medicine; Visit Provider Family Medicine
DX: Z12.31 Encounter for screening mammogram for malignant neoplasm of breast (principal); R92.323 Mammographic fibroglandular density, bilateral breasts
CPT/HCPCS: 77063; 77067

== ENCOUNTER 2024-11-01 08:13 | Emergency (ER) | payer MEDICARE, OTHER, SELFPAY ==
[2024-11-01 08:20] VITALS: BP 172/90; PULSE 99; RESP 16; TEMP 36.6; O2SAT 100
--- NOTE | 2024-11-01 08:30 | DI.RAD_ITS ---
Exam(s) XR KNEE RT 4V AP,LAT,AMISH,PAT EXAM: XR KNEE RT 4V AP,LAT,AMISH,PAT CLINICAL HISTORY: hx patella fx, c/f same. TECHNIQUE: 2D digital imaging was performed of the right knee. Four views obtained. Merchant, AP, la teral and PA tunnel views were obtained. COMPARISON: No exams were available for comparison FINDINGS: BONES: No acute fracture is present. The patellar fracture appears healed. There is an enthesophyte at the superior patella. No bony destructive lesion is seen. JOINTS: The knee is normally aligned. No joint effusion is seen. SOFT TISSUE: Normal. IMPRESSION: No acute fracture or dislocation. DATA REPOSITORY: RADIATION DOSE DELIVERED:
--- NOTE | 2024-11-01 08:48 | ED.GENADUL_ITS ---
Discharge Plan Disposition Patient Disposition: Home Condition: Stable Discharge Details Clinical Impression: Knee pain, right Primary Care Provider: Chiqui Jeff ED Provider: Gale Conte Home Meds and New Rx's Prescriptions: No Action potassium 99 mg tablet 198 mg PO DAILY Patient Comments: PATIENT TAKES 2 TABS DAILY omeprazole magnesium [Prilosec OTC] 20 mg tablet,delayed release (DR/EC) 20 mg PO HS Patient Comments: Brand Name only fluconazole 150 mg tablet 150 mg PO QWEEK PRN nystatin 100,000 unit/gram cream 1 applic TP BID (DME) Accu-Chek Guide test strips Strip See Rx Instructions .Route Rx Instructions: As directed vit C,F-So-wtuot-lutein-zeaxan [PreserVision AREDS-2] 1 tab PO DIRECTED metformin 500 MG tablet extended release 24hr 2,000 mg PO DAILY lysine HCl 500 MG tablet 500 mg PO PRN PRN Patient Comments: takes prn insulin degludec [Tresiba FlexTouch U-200] 200 unit/mL (3 mL) insulin pen 100 unit subcut DAILY primidone 50 mg tablet 50 mg PO HS Patient Comments: will start amitriptyline 10 mg tablet 10 mg PO HS MAY REPEAT X1 Patient Comments: will start Discharge Instructions Instructions: Knee Pain ED Additional Instructions: You were seen in the ED for pain in your right knee. In the department you had a full physical exam, and an XR that did not show a new fracture or significant swelling in the knee joint. You were provided with a hinged knee brace to wear for support and comfort. You should follow up with your primary care provider in the next few days to discuss any symptoms that change, worsen, or persist. Thank you for allowing us to be part of your care. HPI General Mode of arrival: ambulatory . Date/Time Provider Initiated Documentation: 11/01/24 08:16 . Limitations to Documentation: no limitations . Information obtained by: patient and old records reviewed . HPI Narrative: HPI: This is a 74 y/o F patient with a hx of patella fracture in 2023, presenting for 1 week of knee pain. The patient reports that she was stepping down off a chair and landed fairly hard, states that she started having pain in the same area of her R. patella after. States that this is the same way that she injured her knee last year. She has been able to walk, has pain with driving and feels that her pain is improved with straight leg positioning. Has not tried any medications for her pain. States she presented today to ensure that she did not break her patella again. Exam: Gen: Awake and alert, in no apparent distress HEENT: Non-icteric sclera Neck: Supple Lungs: No apparent respiratory distress, normal respiratory effort. CV: Appears well perfused Abdomen: Non-distended MSK: Moves 4 extremities without apparent limitation in ROM, pain to palpation over the medial aspect of the patella, small area of swelling just medial to patella. No tenderness over joint lines, popliteal fossa, able to extend knee against gravity and gentle resistance. No laxity with valgus/varus stress, firm lachmans endpoint. Skin: Visualized skin without rashes, cyanosis. No peripheral edema, lower extremity skin changes Neuro: Slightly antalgic gait, no obvious focal deficits or facial asymmetry. Speaks in full, clear sentences. Baseline parkinsonian tremor. No weakness, numbness, or tingling distal to injury. Psych: Appropriate for situation. MDM: This is a 74 y/o F patient presenting for knee injury. Differential includes but is not limited to fracture, dislocation, ligamentous injury, contusion. No evidence of neurovascular derangement on exam. We will obtain an X-ray of the right knee. The patient is not desiring of any medications ED Course: I reviewed the patient's x-ray, which shows no evidence of fracture or dislocation, no joint effusion appreciated, most concerning for contusion or sprain. I did provide the patient with a hinged knee brace, and recommended outpatient follow-up with her primary care physician and/or her orthopedic doctor. At this time, the patient has had a full medical evaluation and is safe for discharge to home. They are hemodynamically stable, ambulatory, and tolerating PO. They are understanding of the follow-up plan and return precautions. They left our facility without incident. Gale Conte MD Related Data Home Medications ?Medication ?Instructions ?Recorded ?Confirmed metformin 500 mg tablet,extended 2,000 mg PO DAILY 11/03/12 11/01/24 release 24hr (osmotic) lysine HCl 500 mg tablet 500 mg PO PRN PRN 07/26/14 11/01/24 fluconazole 150 mg tablet 150 mg PO QWEEK PRN 12/27/19 11/01/24 nystatin 100,000 unit/gram topical 1 applic topical BID 12/27/19 11/01/24 cream omeprazole magnesium 20 mg 20 mg PO HS 12/27/19 11/01/24 tablet,delayed release (Prilosec OTC) blood sugar diagnostic (Accu-Chek 01/01/23 11/01/24 Guide test strips) vit C,U-Wp-xugtp-lutein-zeaxan 1 tab PO DIRECTED 01/01/23 11/01/24 insulin degludec 200 unit/mL (3 100 unit subcut DAILY 01/20/24 11/01/24 mL) subcutaneous pen (Tresiba FlexTouch U-200 insulin) potassium 99 mg tablet 198 mg PO DAILY 02/04/24 11/01/24 amitriptyline 10 mg tablet 10 mg PO HS MAY REPEAT X1 11/01/24 11/01/24 primidone 50 mg tablet 50 mg PO HS 11/01/24 11/01/24 Allergies Allergy/AdvReac Type Severity Reaction Status Date / Time sulfamethoxazole (From Allergy Intermediate Skin Rash Verified 11/01/24 08:17 Bactrim) trimethoprim (From Bactrim) Allergy Intermediate Skin Rash Verified 11/01/24 08:17 PLACIDO Inhibitors AdvReac Intermediate Epistaxis Verified 11/01/24 08:17 aspirin AdvReac Intermediate Epistaxis Verified 11/01/24 08:17 losartan (Losartan) AdvReac Mild Muscle Verified 11/01/24 08:17 Cramps duloxetine AdvReac stomach Verified 11/01/24 08:17 pain gabapentin AdvReac sleepiness Verified 11/01/24 08:17 sulfite AdvReac Headache Verified 11/01/24 08:17 topiramate AdvReac dizziness, Verified 11/01/24 08:17 disorientation General Stated Complaint: Orthopedic NIKI: 4 Course Vital Signs Vital signs: Vital Signs Temperature 36.6 C 11/01/24 08:20 Pulse 99 H 11/01/24 08:20 Respiratory Rate 16 11/01/24 08:20 Blood Pressure 172/90 H 11/01/24 08:20 Pulse Oximetry 100 11/01/24 08:20 Temperature 36.6 C 11/01/24 08:20 Temperature Source Oral 11/01/24 08:20 Pulse 99 H 11/01/24 08:20 Respiratory Rate 16 11/01/24 08:20 Blood Pressure 172/90 H 11/01/24 08:20 Blood Pressure Position Sitting 11/01/24 08:20 Pulse Oximetry 100 11/01/24 08:20 Oxygen Delivery Method Room Air 11/01/24 08:20 Oxygen Flow Rate 0 11/01/24 08:20 Pain Level 8 11/01/24 08:22 Medical Decision Making Quality:SDOH Health Related Social Needs: No Data to Display PFSH All Active Problems (Updated 11/01/24 @ 09:23 by Gale Conte MD) Knee pain, right (Acute) Skin lesion of left ear (Acute) Mass of right ear canal (Acute) Otalgia, right ear (Acute) Tension headache (Acute) Parkinsons (Chronic) Screening for colon cancer (Acute) Facial pain (Acute) Palpitations (Acute) Medical History Essential hypertension Peptic ulcer without hemorrhage or perforation Trigeminal neuralgia Seasonal allergic rhinitis Senile osteopenia Overweight Chronic pain Seasonal allergies Hypertension Mouth pain Dental infection Diabetes mellitus Fibromyalgia Osteopenia GERD (gastroesophageal reflux disease) PUD (peptic ulcer disease) Rheumatoid factor positive Solitary pulmonary nodule Recurrent vaginitis Chronic tension headache Migraine headache Hypothyroidism pt. states her thyroid levels came back normal Benign essential hypertension Diabetes mellitus type 1 Pt. states this is incorrect, it is type II Recurrent sinusitis Palpitations Chest pain Pt. states this was a few years ago before she lost weight and no longer has chest pain. Insulin dependent diabetes mellitus Surgical History History of colonoscopy (~05/2023) History of herniorrhaphy History of tonsillectomy and adenoidectomy Hx of arthroscopic knee surgery Hx of appendectomy S/P cholecystectomy H/O: hysterectomy Family History Sister , age 65 Cancer Social History Smoking/Tobacco Use Status: Never Smoking risk assessment performed?: Yes Alcohol Intake: never Drug use: Never Substance use type: does not use Housing: house Current gender identity: female Do you feel safe at home: Yes Do you feel safe in your relationship?: Yes History History 3 Para 3 Hx # Term Pregnancies Multiple births Hx # Pregnancies Ectopic pregnancies AB induced Hx Number of Living Children AB spontaneous
[2024-11-01 09:49] VITALS: BP 191/83; PULSE 85; RESP 16; TEMP 36.2; O2SAT 100
== END 2024-11-01 09:52 | disposition home or self-care (01) ==
PROVIDERS: Emergency Provider Emergency Medicine; PCP Family Medicine
DX: M25.561 Pain in right knee (principal); I10 Essential (primary) hypertension; E11.9 Type 2 diabetes mellitus without complications; E03.9 Hypothyroidism, unspecified; G20.A1 Parkinson's disease without dyskinesia, without mention of fluctuations; Z79.4 Long term (current) use of insulin; Z79.84 Long term (current) use of oral hypoglycemic drugs
CPT/HCPCS: 99283; 73564

== ENCOUNTER 2024-11-22 02:10 | Outpatient (CLI) | payer MEDICARE, OTHER, SELFPAY ==
--- NOTE | 2024-11-22 07:45 | DI.CT_ITS ---
Exam(s) CT SINUS WO EXAM: CT SINUS WO CLINICAL HISTORY: Right sided symptoms, medically recalcitrant,chronic sinusitis,rhinorrhea. TECHNIQUE: Imaging Protocol: Axial computed tomography images with coronal and sagittal reformatted images were created and reviewed. No IV Contrast COMPARISON: No exams were available for comparison FINDINGS: MAXILLARY SINUSES: No significant mucosal thickening nor fluid levels. There is no evidence of bone dehiscence. OSTIOMEATAL UNITS: Patent bilaterally ETHMOIDAL AIR CELLS: Well aerated. No mucosal thickening nor fluid levels. SPHENOID SINUSES: Well aerated. No mucosal thickening nor fluid levels. FRONTAL SINUSES: Well aerated. No mucosal thickening nor fluid levels. NASAL SEPTUM AND TURBINATES:Nasal septum is midline with no evidence of significant nasal septal spur . There is no evidence of judah bullosa. IMPRESSION: No significant findings on the CT scan of the paranasal sinuses. RADIATION DOSE DELIVERED: 83.14mGy.cm Total DLP DATA REPOSITORY: All CT scans at this facility are submitted to the National Radiology Data Registry (NRDR) Dose Index Registry (DIR) with the [employer] ([employer]). RADIATION OPTIMIZATION: All CT scans at this facility use at least one of these dose optimization te chniques: automated exposure control; mA and/or kV adjustment per patient size (includes targeted exa ms where dose is matched to clinical indication); or iterative reconstruction.
== END 2024-11-22 02:30 ==
LOC: DI 02:10
PROVIDERS: PCP Family Medicine; Visit Provider Otolaryngology
DX: J32.9 Chronic sinusitis, unspecified (principal); R51.9 Headache, unspecified
CPT/HCPCS: 70486

== ENCOUNTER 2024-12-18 16:47 | Outpatient (REF) | payer MEDICARE, OTHER, SELFPAY ==
[2024-12-18 16:05] LABS: Anion Gap 10.2 mmol/L (3-11); BUN 9 mg/dL (7-18); CO2 28.8 mmol/L (21.0-32.0); CREATININE 0.8 mg/dL (0.55-1.02); Calcium 9.5 mg/dL (8.5-10.1); Chloride 100 mmol/L (98-107); Estimated GFR 77.27 (mL/min/1.73m2); Glucose 166 mg/dL (74-106); Potassium 4.6 mmol/L (3.5-5.1); Sodium 139 mmol/L (136-145)
[2024-12-18 19:08] LABS: COMMENT (LAB VIEW ONLY) 45.24 mg/dL
== END 2024-12-18 16:48 | disposition home or self-care (01) ==
LOC: NCHCN 16:47
PROVIDERS: PCP Family Medicine; Visit Provider Family Medicine
DX: E11.9 Type 2 diabetes mellitus without complications (principal); Z79.4 Long term (current) use of insulin
CPT/HCPCS: 80048; 82043; 82570

== ENCOUNTER 2025-03-03 08:46 | Emergency (ER) | payer MEDICARE, OTHER, SELFPAY ==
--- NOTE | 2025-03-03 09:00 | RT.EKG_ITS ---
APPROVED REPORT Exam: Resting ECG Reason for Exam: chest heaviness Patient Location: E HR:84 bpm ECG Measurements Heart Rate 84 AXIS TX 156 P 74 QRSd 82 QRS 65 QT 360 T 55 QTc 425 Conclusion Sinus rhythm, rate 84 No interval abnormalities No STEMI No priors available for comparison
[2025-03-03 09:04] VITALS: BP 151/83; PULSE 91; RESP 16; TEMP 36.7; O2SAT 97
--- NOTE | 2025-03-03 09:15 | DI.RAD_ITS ---
Exam(s) XR CHEST 2V PA LATERAL EXAM: XR CHEST 2V PA LATERAL CLINICAL HISTORY: Chest pain TECHNIQUE: 2D digital imaging was performed. Two views. COMPARISON: CR XR CHEST 2V PA LATERAL from 07/29/2018 FINDINGS: HEART: Normal size. Aorta: Not dilated. PULMONARY VASCULATURE: Normal. MEDIASTINUM: Unremarkable. LUNGS: Clear. PLEURAL SPACE: No pleural effusion or pneumothorax. BONE:Unremarkable for age. SOFT TISSUES: Unremarkable. IMPRESSION: No acute abnormality. The preliminary [facility] report was reviewed. DATA REPOSITORY: RADIATION DOSE DELIVERED:
--- NOTE | 2025-03-03 09:49 | W.ED.GENAD ---
Discharge Plan Disposition Patient Disposition: Home Discharge Details Clinical Impression: Respiratory tract infection Primary Care Provider: Chiqui Jeff ED Provider: Duc Gloria Home Meds and New Rx's Prescriptions: New doxycycline hyclate 100 mg capsule 100 mg PO BID Qty: 10 0RF No Action potassium 99 mg tablet 198 mg PO DAILY Patient Comments: PATIENT TAKES 2 TABS DAILY omeprazole magnesium [Prilosec OTC] 20 mg tablet,delayed release (DR/EC) 20 mg PO HS Patient Comments: Brand Name only fluconazole 150 mg tablet 150 mg PO QWEEK PRN nystatin 100,000 unit/gram cream 1 applic TP BID (DME) Accu-Chek Guide test strips Strip See Rx Instructions .Route Rx Instructions: As directed vit C,G-Ra-ipoof-lutein-zeaxan [PreserVision AREDS-2] 1 tab PO DIRECTED metformin 500 MG tablet extended release 24hr 2,000 mg PO DAILY lysine HCl 500 MG tablet 500 mg PO PRN PRN Patient Comments: takes prn insulin degludec [Tresiba FlexTouch U-200] 200 unit/mL (3 mL) insulin pen 100 unit subcut DAILY primidone 50 mg tablet 50 mg PO HS Patient Comments: will start amitriptyline 10 mg tablet 10 mg PO HS MAY REPEAT X1 Patient Comments: will start Discharge Instructions Instructions: Bacterial Upper Respiratory Infection, Adult Additional Instructions: At this time your workup is reassuring but given recent exposure along with ongoing exposure to bacterial pneumonia we will treat you accordingly. Please return for any new or significant worsening of symptoms otherwise follow-up with your primary care provider for reassessment if not improving in the next 1 to 2 weeks. Since we have prescribed you doxycycline please be aware that this may cause some photosensitivity and please use appropriate precautions to reduce sunburn Discharge Data Discharge Date/Time-TO BE ENTERED AT DEPARTURE: 03/03/25 12:07 HPI General Mode of arrival: ambulatory. Date/Time Provider Initiated Documentation: 03/03/25 08:47. Limitations to Documentation: no limitations. Information obtained by: patient and RN notes reviewed. History of Present Illness 74 year old F presents to the emergency department with the chief complaint of cough and chest heaviness, described as moderate and similar to prior episodes, Quality is described as dull, and is localized to the chest. Patient reports no radiation. Patient started experiencing this hour(s) (3) and it has been constant. No relieving factors improve symptom(s), Other factors that worsen symptoms (cough) . Patient notes shortness of breath; denies fever/chills, malaise and weakness. Patient did receive the following treatments prior to arrival, none Related Data Home Medications ?Medication ?Instructions ?Recorded ?Confirmed metformin 500 mg tablet,extended 2,000 mg PO DAILY 11/03/12 03/03/25 release 24hr (osmotic) lysine HCl 500 mg tablet 500 mg PO PRN PRN 07/26/14 03/03/25 fluconazole 150 mg tablet 150 mg PO QWEEK PRN 12/27/19 03/03/25 nystatin 100,000 unit/gram topical 1 applic topical BID 12/27/19 03/03/25 cream omeprazole magnesium 20 mg 20 mg PO HS 12/27/19 03/03/25 tablet,delayed release (Prilosec OTC) blood sugar diagnostic (Accu-Chek 01/01/23 03/03/25 Guide test strips) vit C,A-Fk-rgkgr-lutein-zeaxan 1 tab PO DIRECTED 01/01/23 03/03/25 insulin degludec 200 unit/mL (3 100 unit subcut DAILY 01/20/24 03/03/25 mL) subcutaneous pen (Tresiba FlexTouch U-200 insulin) potassium 99 mg tablet 198 mg PO DAILY 02/04/24 03/03/25 amitriptyline 10 mg tablet 10 mg PO HS MAY REPEAT X1 11/01/24 03/03/25 primidone 50 mg tablet 50 mg PO HS 11/01/24 03/03/25 doxycycline hyclate 100 mg capsule 100 mg PO BID #10 caps 03/03/25 Previous Rx's ?Medication ?Instructions ?Recorded doxycycline hyclate 100 mg capsule 100 mg PO BID #10 caps 03/03/25 Allergies Allergy/AdvReac Type Severity Reaction Status Date / Time sulfamethoxazole (From Allergy Intermediate Skin Rash Verified 03/03/25 09:08 Bactrim) trimethoprim (From Bactrim) Allergy Intermediate Skin Rash Verified 03/03/25 09:08 PLACIDO Inhibitors AdvReac Intermediate Epistaxis Verified 03/03/25 09:08 aspirin AdvReac Intermediate Epistaxis Verified 03/03/25 09:08 losartan (Losartan) AdvReac Mild Muscle Verified 03/03/25 09:08 Cramps duloxetine AdvReac stomach Verified 03/03/25 09:08 pain gabapentin AdvReac sleepiness Verified 03/03/25 09:08 sulfite AdvReac Headache Verified 03/03/25 09:08 topiramate AdvReac dizziness, Verified 03/03/25 09:08 disorientation General Stated Complaint: RespSymp NIKI: 3 Review of Systems Constitutional Constitutional: Denies body ache(s), Denies chills, Denies fever(s) and Denies headache(s) Eyes Eyes: Denies eye discharge ENT Ears, Nose, Mouth, and Throat: Reports as per HPI, Denies ear discharge, Denies otalgia, Denies headache(s), Reports nasal congestion, Denies neck pain, Denies sore throat and Denies throat swelling Cardiovascular Cardiovascular: Denies chest pain and Reports dyspnea Respiratory Respiratory: Denies chest congestion, Reports cough and Reports dyspnea Musculoskeletal Musculoskeletal: Denies joint swelling and Denies neck pain Integumentary/Breasts Skin/Breast: Denies rash Neurologic Neurologic: Denies headache(s) Allergic/Immunologic Allergic/Immunologic: Denies throat swelling Exam Const General: cooperative, comfortable, no acute distress, not diaphoretic and not ill appearing Nutritional Appearance: average body habitus Orientation: alert, awake and oriented x3 Limitations: mental status not altered Neck Neck: normal visual inspection, full ROM, trachea midline, supple and no anterior neck swelling Resp Effort & Inspection: normal respiratory effort, able to speak in complete sentences and cough Quality of cough: other (forced ) Auscultation: clear to auscultation bilaterally Cardio Jugular venous pressure: no JVD Palpation: normal PMI Rate: regular rate Rhythm: regular rhythm Heart Sounds: S1 normal, S2 normal, no click, no gallops, no murmurs and no rubs Bruits: no abdominal aortic bruits and no carotid bruits Pulses: radial pulses present bilaterally 2+ Skin General skin exam: no rashes or lesions noted Neuro General: patient alert, patient awake, patient oriented x3, tone normal and moves all extremities Course Vital Signs Vital signs: Vital Signs Temperature 36.7 C 03/03/25 09:04 Pulse 91 H 03/03/25 09:04 Respiratory Rate 16 03/03/25 09:04 Blood Pressure 151/83 H 03/03/25 09:04 Pulse Oximetry 97 07/12/25 09:04 Temperature 36.7 C 03/03/25 09:04 Temperature Source Oral 03/03/25 09:04 Pulse 91 H 03/03/25 09:04 Respiratory Rate 16 03/03/25 09:04 Respiratory Effort Short of Breath 03/03/25 09:09 Blood Pressure 151/83 H 03/03/25 09:04 Blood Pressure Position Sitting 03/03/25 09:04 Pulse Oximetry 97 03/03/25 09:04 Oxygen Delivery Method Room Air 03/03/25 09:04 Oxygen Flow Rate 0 03/03/25 09:04 Medical Decision Making Patient presenting to the emergency department for chief complaint of cough and some chest heaviness. Patient states that she actually checked herself and while bringing her son in for reevaluation of persistent pneumonia. She is concerned that she may have a pneumonia but stated this morning when she woke up she had persistent chest pressure and dry cough. Patient denies all other symptoms. Patient is a 74-year-old female with history of diabetes, GERD, hypothyroidism. 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 Physical exam shows forced dry cough, clear lung sounds throughout, unremarkable HEENT exam and otherwise stable condition with stable vital signs. Given patient's age and history we will perform laboratory workup along with chest x-ray but I have suspicion of either early viral illness or potential for early bacterial pneumonia given exposure Reviewed patient's labs and CBC is unremarkable, CMP shows slightly elevated glucose at 117 and magnesium 1.6 which we will orally replete otherwise nondiagnostic. Initial troponin is negative and BNP is 60. Chest x-ray showed no acute findings and patient reassessed and continues to have dry intermittent cough but otherwise negative for any acute changes. Will continue to monitor patient until second troponin has returned. Reviewed repeat troponin and is pretty much unchanged and reassessed patient who has had no change in condition. Continues to remain not tachycardic hypoxic tachypneic and otherwise stable. Given overall negative workup feel that this is either allergenic as patient did disclose that she has been working in the basement and has some irritation or early infection given her son's significant persistent pneumonia that is needed admission and multiple antibiotics. Out of an abundance of caution given patient's age and diabetes along with exposure we will prescribe patient doxycycline but will have her monitor symptoms and follow-up with primary care provider as needed. After discussion of diagnosis and plan of care patient has no further needs, questions, or concerns and states clear understanding to return to the emergency department for any worsening symptoms. This documentation was generated using [employer] dictation system, please disregard any oddities of phrase or misspellings. PFSH All Active Problems (Updated 03/03/25 @ 11:48 by Duc Gloria NP) Respiratory tract infection (Acute) Purulent rhinorrhea (Acute) Right facial pain (Acute) Chronic sinusitis (Acute) Skin lesion of left ear (Acute) Mass of right ear canal (Acute) Otalgia, right ear (Acute) Tension headache (Acute) Parkinsons (Chronic) Screening for colon cancer (Acute) Facial pain (Acute) Palpitations (Acute) Medical History Essential hypertension Peptic ulcer without hemorrhage or perforation Trigeminal neuralgia Seasonal allergic rhinitis Senile osteopenia Overweight Chronic pain Seasonal allergies Hypertension Mouth pain Dental infection Diabetes mellitus Fibromyalgia Osteopenia GERD (gastroesophageal reflux disease) PUD (peptic ulcer disease) Rheumatoid factor positive Solitary pulmonary nodule Recurrent vaginitis Chronic tension headache Migraine headache Hypothyroidism pt. states her thyroid levels came back normal Benign essential hypertension Diabetes mellitus type 1 Pt. states this is incorrect, it is type II Recurrent sinusitis Palpitations Chest pain Pt. states this was a few years ago before she lost weight and no longer has chest pain. Insulin dependent diabetes mellitus Surgical History History of colonoscopy (~05/2023) History of herniorrhaphy History of tonsillectomy and adenoidectomy Hx of arthroscopic knee surgery Hx of appendectomy S/P cholecystectomy H/O: hysterectomy Family History Sister , age 65 Cancer Social History Smoking/Tobacco Use Status: Never Smoking risk assessment performed?: Yes Alcohol Intake: never Drug use: Never Substance use type: does not use Housing: house Current gender identity: female Do you feel safe at home: Yes Do you feel safe in your relationship?: Yes History History 3 Para 3 Hx # Term Pregnancies Multiple births Hx # Pregnancies Ectopic pregnancies AB induced Hx Number of Living Children AB spontaneous
[2025-03-03 10:25] LABS: Abs Immature Grans 0.03 10^3/uL (0.0-0.06); HCT 38.5 % (36.0-46.0); HGB 13.3 g/dL (11.2-15.7); Immature Grans % 0.5 %; MCH 29.9 pg (27.0-33.0); MCHC 34.5 % (32.0-36.0); MCV 87 fL (80-95); MPV 10.0 fL (8.0-11.0); Platelet Count 144 10^3/uL (130-400); RBC 4.45 10^6/uL (3.93-5.22); RDW 12.4 % (11.7-14.6); RDW-SD 39.3 fL; WBC 6.42 10^3/uL (4.4-10.8)
[2025-03-03 10:41] LABS: ALT 24 U/L (14-59); AST 25 U/L (15-37); Albumin 3.7 g/dL (3.4-5.0); Alkaline Phosphatase 132 U/L (46-116); Anion Gap 7.5 mmol/L (3-11); BUN 15 mg/dL (7-18); Bilirubin, Total 0.4 mg/dL (0.2-1.0); CO2 28.5 mmol/L (21.0-32.0); Calcium 9.0 mg/dL (8.5-10.1); Chloride 103 mmol/L (98-107); Estimated GFR 90.70 (mL/min/1.73m2); Glucose 117 mg/dL (74-106); Magnesium 1.6 mg/dL (1.8-2.4); NT-proBNP 60 pg/mL (<300); Potassium 4.9 mmol/L (3.5-5.1); Sodium 139 mmol/L (136-145); Total Protein 7.4 g/dL (6.4-8.2); Troponin I 7 ng/L (<or=51)
--- NOTE | 2025-03-03 10:58 | DI.[facility]_ITS ---
PROCEDURE INFORMATION: Exam: XR Chest Exam date and time: 03/03/2025 10:14 AM Age: 74 years old Clinical indication: Pain; Chest pressure TECHNIQUE: Imaging protocol: Radiologic exam of the chest. Views: 2 views. COMPARISON: CR XR CHEST 2V PA LATERAL 07/29/2018 10:14 AM FINDINGS: Lungs: Unremarkable. No consolidation. Pleural spaces: Unremarkable. No pleural effusion. No pneumothorax. Heart/Mediastinum: Unremarkable. No cardiomegaly. Bones/joints: Unremarkable. IMPRESSION: No acute findings. Dictated and Authenticated by: Jonh Sullivan MD. Orderin Juani Xavier MD
[2025-03-03] MEDS: Magnesium Oxide 400 MG TAB 800 MG PO (11:08)
[2025-03-03 11:18] VITALS: PULSE 81; RESP 14; O2SAT 97
[2025-03-03 11:34] LABS: Troponin I 6 ng/L (<or=51)
== END 2025-03-03 12:07 | disposition home or self-care (01) ==
PROVIDERS: Emergency Provider Nurse Practitioner Family; PCP Family Medicine
DX: J06.9 Acute upper respiratory infection, unspecified (principal); E11.9 Type 2 diabetes mellitus without complications; K21.9 Gastro-esophageal reflux disease without esophagitis
CPT/HCPCS: 99285; 99283; 36415; 87428; 80053; 93005; 71046; 83735; 83880; 84484; 85025; 93010